=== PATIENT | female | born 1990 | race Caucasian/White ===

== ENCOUNTER 2018-07-26 15:54 | Emergency (ER) | payer OTHER, SELFPAY ==
[2018-07-26] MEDS ORDERED: FENTANYL CITR 100 MCG/2 ML ONE (16:52)
--- NOTE | 2018-07-26 16:57 | RAD REPORT ---
EXAM DESCRIPTION: RAD - Elbow Right 3 View - 07/26/2018 4:50 pm CLINICAL HISTORY: Elbow pain following trauma COMPARISON: None. FINDINGS: No fracture is identified and no elevated posterior fat pad. No dislocation or periosteal reaction. No foreign body identified. There is soft tissue swelling from contusion or edema posterior to the elbow joint and proximal forearm. No other significant finding. IMPRESSION: Posterior contusion or edema change. No acute bone or joint finding.
--- NOTE | 2018-07-26 17:04 | ER ---
Nurse's Notes [facility] Name: Meenakshi Ojeda Age: 27 yrs Sex: Female : 1990 Arrival Date: 07/26/2018 Time: 15:58 Bed 11 Private MD: None, None Diagnosis: Contusion of right elbow;Pain in right elbow Presentation: 07/26 16:05 Presenting complaint: Right elbow pain and swelling after arm got caught between washer hb and dryer while moving today. Transition of care: patient was not received from another setting of care. Onset of symptoms was July 26, 2018. Risk Assessment: Do you want to hurt yourself or someone else? Patient reports no desire to harm self or others. 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 16:05 Method Of Arrival: Ambulatory hb 16:05 Acuity: LUIS 4 hb 16:15 Initial Sepsis Screen: Does the patient meet any 2 criteria? No. Patient's initial iw sepsis screen is negative. Does the patient have a suspected source of infection? No. Patient's initial sepsis screen is negative. Triage Assessment: 16:05 General: Appears in no apparent distress. uncomfortable, Behavior is cooperative, hb anxious. Pain: Pain currently is 7 out of 10 on a pain scale. Neuro: Level of Consciousness is awake, alert, obeys commands, Oriented to person, place, time, situation. Cardiovascular: Capillary refill < 3 seconds Patient's skin is warm and dry. Respiratory: Airway is patent Respiratory effort is even, unlabored, Respiratory pattern is regular, symmetrical. Musculoskeletal: Swelling present in right elbow. 16:05 Injury Description:. 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 - Social history:: Smoking status: Patient uses tobacco products, smokes one-half pack cigarettes per day. - Ebola Screening: : No symptoms or risks identified at this time. Screenin:50 Abuse screen: Denies threats or abuse. Denies injuries from another. Nutritional hb screening: No deficits noted. Tuberculosis screening: No symptoms or risk factors identified. Fall Risk None identified. Assessment: 16:30 General: see triage assessment. hb 17:10 Reassessment: Patient appears in no apparent distress at this time. Patient and/or iw family updated on plan of care and expected duration. Pain level reassessed. Patient is alert, oriented x 3, equal unlabored respirations, skin warm/dry/pink. Vital Signs: 16:05 BP 100 / 88; Pulse 106; Resp 18; Temp 97.8; Pulse Ox 100% on R/A; Pain 7/10; hb ED Course: 15:58 Patient arrived in ED. mr 15:58 None, None is Private Physician. mr 16:05 Triage completed. hb 16:06 Arm band placed on left wrist. hb 16:14 Janae Cha FNP-C is PHCP. snw 16:14 Hermes Danielson MD is Attending Physician. snw 16:43 Lucinda Jara, CHRISS is Primary Nurse. iw 16:51 Patient has correct armband on for positive identification. Call light in reach. hb 17:05 Elbow Right 3 View XRAY In Process Unspecified. EDMS 17:20 No provider procedures requiring assistance completed. Patient did not have IV access iw during this emergency room visit. Administered Medications: 16:51 Drug: fentaNYL (PF) 50 mcg Route: IM; Site: left deltoid; hb Outcome: 17:03 Discharge ordered by . snw 17:22 Discharged to home ambulatory. iw 17:22 Condition: good 17:22 Discharge instructions given to patient, Instructed on discharge instructions, follow up and referral plans. Demonstrated understanding of instructions, follow-up care, medications, Prescriptions given X 1. 17:23 Patient left the ED. aj1 Signatures: Dispatcher [employer] EDBridgette Taylor RN RN aj1 Janae Cha FNP-C [employer] SCHOOL HUMANITIES TEACHER-Toshaw Pattie Almeida mr Lucinda Jara RN RN iw Xin Prieto RN RN
--- NOTE | 2018-07-26 17:04 | EDPHYS ---
Physician Documentation [facility] Name: Meenakshi Ojeda Age: 27 yrs Sex: Female : 1990 Arrival Date: 07/26/2018 Time: 15:58 Bed 11 Private MD: None, None ED Physician Hermes Danielson HPI: 07/26 16:47 This 27 yrs old Female presents to ER via Ambulatory with complaints of Elbow snw Injury. 16:47 The patient or guardian complains of a crush injury, from a heavy object, decreased snw range of motion, injury, pain, that is acute. The complaints affect the right elbow. Context: The problem was sustained at home, resulted from a crush injury, by an appliance, a direct blow, by an appliance. Onset: The symptoms/episode began/occurred suddenly, this morning. Treatment prior to arrival includes: no previous treatment. Severity of symptoms: At their worst the symptoms were moderate, severe. The patient has not experienced similar symptoms in the past. 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 - Social history:: Smoking status: Patient uses tobacco products, smokes one-half pack cigarettes per day. - Ebola Screening: : No symptoms or risks identified at this time. ROS: 16:46 Constitutional: Negative for fever, chills, and weight loss, Eyes: Negative for injury, snw pain, redness, and discharge, ENT: Negative for injury, pain, and discharge, Neck: Negative for injury, pain, and swelling, Cardiovascular: Negative for chest pain, palpitations, and edema, Respiratory: Negative for shortness of breath, cough, wheezing, and pleuritic chest pain, Abdomen/GI: Negative for abdominal pain, nausea, vomiting, diarrhea, and constipation, Back: Negative for injury and pain, : Negative for injury, bleeding, discharge, and swelling, Skin: Negative for injury, rash, and discoloration, Neuro: Negative for headache, weakness, numbness, tingling, and seizure. 16:46 MS/extremity: Positive for injury or acute deformity, contusion, decreased range of motion, ecchymosis, pain, swelling, tenderness, of the right elbow. Exam: 16:44 Constitutional: This is a well developed, well nourished patient who is awake, alert, snw and in no acute distress. Head/Face: Normocephalic, atraumatic. Eyes: Pupils equal round and reactive to light, extra-ocular motions intact. Lids and lashes normal. Conjunctiva and sclera are non-icteric and not injected. Cornea within normal limits. Periorbital areas with no swelling, redness, or edema. ENT: Nares patent. No nasal discharge, no septal abnormalities noted. Tympanic membranes are normal and external auditory canals are clear. Oropharynx with no redness, swelling, or masses, exudates, or evidence of obstruction, uvula midline. Mucous membranes moist. Neck: Trachea midline, no thyromegaly or masses palpated, and no cervical lymphadenopathy. Supple, full range of motion without nuchal rigidity, or vertebral point tenderness. No Meningismus. Chest/axilla: Normal chest wall appearance and motion. Nontender with no deformity. No lesions are appreciated. Cardiovascular: Regular rate and rhythm with a normal S1 and S2. No gallops, murmurs, or rubs. Normal PMI, no JVD. No pulse deficits. Respiratory: Lungs have equal breath sounds bilaterally, clear to auscultation and percussion. No rales, rhonchi or wheezes noted. No increased work of breathing, no retractions or nasal flaring. Abdomen/GI: Soft, non-tender, with normal bowel sounds. No distension or tympany. No guarding or rebound. No evidence of tenderness throughout. Back: No spinal tenderness. No costovertebral tenderness. Full range of motion. Skin: Warm, dry with normal turgor. Normal color with no rashes, no lesions, and no evidence of cellulitis. Neuro: Awake and alert, GCS 15, oriented to person, place, time, and situation. Cranial nerves II-XII grossly intact. Motor strength 5/5 in all extremities. Sensory grossly intact. Cerebellar exam normal. Normal gait. Psych: Awake, alert, with orientation to person, place and time. Behavior, mood, and affect are within normal limits. 16:44 Musculoskeletal/extremity: Extremities: grossly normal except: noted in the right elbow: ROM: limited active range of motion due to pain, limited passive range of motion due to pain, in the right elbow, Circulation is intact in all extremities. + pain Compartment Syndrome exam of affected extremity: is normal. Vital Signs: 16:05 BP 100 / 88; Pulse 106; Resp 18; Temp 97.8; Pulse Ox 100% on R/A; Pain 7/10; hb MDM: 16:16 Patient medically screened. snw 17:04 Data reviewed: vital signs, nurses notes. Data interpreted: Pulse oximetry: on room air snw is 100 %. Interpretation: normal. Counseling: I had a detailed discussion with the patient and/or guardian regarding: the historical points, exam findings, and any diagnostic results supporting the discharge/admit diagnosis, radiology results, the need for outpatient follow up, to return to the emergency department if symptoms worsen or persist or if there are any questions or concerns that arise at home. Special discussion: I have referred the patient to see his PCP for further evaluation of high blood pressure. Based on the history and exam findings, there is no indication for further emergent testing or inpatient evaluation. I discussed with the patient/guardian the need to see the orthopedic surgeon for further evaluation of the symptoms. I discussed with the patient/guardian the need to see the primary care provider for further evaluation of the symptoms. 12 16:16 Order name: Elbow Right 3 View XRAY; Complete Time: 08:34 snw 07/26 16:37 Order name: Sling; Complete Time: 16:42 snw Administered Medications: 16:51 Drug: fentaNYL (PF) 50 mcg Route: IM; Site: left deltoid; hb Disposition: 18:14 Co-signature as Attending Physician, Hermes Danielson MD I agree with the assessment and kdr plan of care. Disposition: 07/26/18 17:03 Discharged to Home. Impression: Contusion of right elbow, Pain in right elbow. - Condition is Stable. - Discharge Instructions: Joint Pain, Musculoskeletal Pain, Elbow Contusion, Cryotherapy, Heat Therapy, How to Use a Sling. - Prescriptions for Diclofenac Sodium 75 mg Oral Tablet Sustained Release - take 1 tablet by ORAL route 2 times per day; 30 tablet. - Work release form, Medication Reconciliation Form, Thank You Letter, Antibiotic Education, Prescription Opioid Use form. - Follow up: Emergency Department; When: As needed; Reason: Worsening of condition. Follow up: Private Physician; When: 5 - 6 days; Reason: Recheck today's complaints, Continuance of care, Re-evaluation by your physician. Signatures: Dispatcher [employer] Bridgette Rust RN RN aj1 Hermes Danielson MD MD [facility] Janae Cha, COMMERCIAL LOAN CLOSER-C COMMERCIAL LOAN CLOSER-Csnw Xin Prieto RN RN Corrections: (The following items were deleted from the chart) 17:23 17:03 07/26/2018 17:03 Discharged to Home. Impression: Contusion of right elbow; Pain aj1 in right elbow. Condition is Stable. Forms are Medication Reconciliation Form, Thank You Letter, Antibiotic Education, Prescription Opioid Use. Follow up: Emergency Department; When: As needed; Reason: Worsening of condition. Follow up: Private Physician; When: 5 - 6 days; Reason: Recheck today's complaints, Continuance of care, Re-evaluation by your physician. snw
[2018-07-26 17:48] VITALS: BP 100/88; TEMP 97.8; O2SAT 100
== END 2018-07-26 17:23 | disposition home or self-care (01) ==
LOC: ER 15:54
DX: S50.01XA Contusion of right elbow, initial encounter (principal); W23.0XXA Caught, crushed, jammed, or pinched between moving objects, initial encounter; F17.210 Nicotine dependence, cigarettes, uncomplicated
CPT/HCPCS: 96372; 99283; J3010

== ENCOUNTER 2019-09-01 03:02 | Emergency (ER) | payer SELFPAY ==
--- OUTSIDE RECORDS SUMMARY | 2019-09-01 03:04 | XMS REPORT ---
:1990 [facility] Address [address] [place] [address] Dr. Kumar [address] [place] [address] Care Team Providers Name Role Phone Unavailable Unavailable Unavailable Problems This patient has no known problems. Allergies, Adverse Reactions, Alerts This patient has no known allergies or adverse reactions. Medications This patient has no known medications.
--- NOTE | 2019-09-01 03:43 | ER ---
Nurse's Notes [facility] Name: Meenakshi Ojeda Age: 28 yrs Sex: Female : 1990 Arrival Date: 09/01/2019 Time: 03:02 Bed 19 Private MD: Diagnosis: Cellulitis of right axilla Presentation: 09/01 03:11 Presenting complaint: Patient states: woke up from pain on a lump on her right axilla, Pt states it wasn't there when she slept. Transition of care: patient was not received from another setting of care. Onset of symptoms was September 01, 2019. Risk Assessment: Do you want to hurt yourself or someone else? Patient reports no desire to harm self or others. Initial Sepsis Screen: Does the patient meet any 2 criteria? No. Patient's initial sepsis screen is negative. Does the patient have a suspected source of infection? Yes: Skin breakdown/wound. Care prior to arrival: None. 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 - Social history:: Smoking status: Patient uses tobacco products, denies chronic smoking, but will smoke occasionally, Patient/guardian denies using alcohol, street drugs, The patient lives with family, with spouse. - Ebola Screening: : Patient negative for fever greater than or equal to 101.5 degrees Fahrenheit, and additional compatible Ebola Virus Disease symptoms Patient denies exposure to infectious person. - Family history:: not pertinent. Screenin:14 Abuse screen: Denies threats or abuse. Denies injuries from another. Nutritional screening: No deficits noted. Tuberculosis screening: No symptoms or risk factors identified. Fall Risk None identified. Assessment: 03:13 General: Appears in no apparent distress. Behavior is calm, cooperative, appropriate wh for age. Pain: Complains of pain in Right axilla Pain does not radiate. Pain currently is 8 out of 10 on a pain scale. Quality of pain is described as aching, Pain began 4 hours ago. Neuro: Level of Consciousness is awake, alert, obeys commands, Oriented to person, place, time, situation, Appropriate for age. Cardiovascular: Capillary refill < 3 seconds. Respiratory: Airway is patent Respiratory effort is even, unlabored, Respiratory pattern is regular, symmetrical. GI: Abdomen is flat, non-distended. : No signs and/or symptoms were reported regarding the genitourinary system. EENT: No signs and/or symptoms were reported regarding the EENT system. Derm: lump on right axilla. Musculoskeletal: Circulation, motion, and sensation intact. Vital Signs: 03:12 BP 116 / 70; Pulse 76; Resp 18; Temp 98.5; Pulse Ox 97% ; Weight 67.13 kg; Height 5 ft. wh 4 in. (162.56 cm); Pain 8/10; 03:12 Body Mass Index 25.40 (67.13 kg, 162.56 cm) ED Course: 03:02 Patient arrived in ED. ds1 03:09 Capri Paulino MD is Attending Physician. ma2 03:10 Akanksha Lisa is Primary Nurse. 03:12 Triage completed. 03:15 Arm band placed on right wrist. 03:15 Patient has correct armband on for positive identification. Bed in low position. Call bb3 light in reach. Side rails up X 1. Pulse ox on. NIBP on. 04:04 No provider procedures requiring assistance completed. Patient did not have IV access bb3 during this emergency room visit. Administered Medications: 03:50 Drug: TORadol 60 mg Route: IM; Site: right gluteus; bb3 04:19 Follow up: Response: No adverse reaction bb3 03:50 Drug: Clindamycin 300 mg Route: PO; bb3 04:18 Follow up: Response: No adverse reaction bb3 03:50 Drug: Bactrim (160 mg-800 mg (DS) 1 tablet Route: PO; bb3 04:18 Follow up: Response: No adverse reaction bb3 Outcome: 03:42 Discharge ordered by . ma2 04:04 Discharged to home ambulatory, with friend. bb3 04:04 Condition: stable 04:04 Discharge instructions given to patient, Instructed on discharge instructions, follow up and referral plans. no drinking with medication, no driving heavy equipment, medication usage. 04:20 Patient left the ED. bb3 Signatures: Kaelyn Casey ds1 Akanksha Lisa Mohammad, MD MD ma2 Nela Alexis bb3
--- NOTE | 2019-09-01 03:44 | EDPHYS ---
Physician Documentation [facility] Name: Meenakshi Ojeda Age: 28 yrs Sex: Female : 1990 Arrival Date: 09/01/2019 Time: 03:02 Bed 19 Private MD: ED Physician Capri Paulino HPI: 09/01 03:40 This 28 yrs old Female presents to ER via Ambulatory with complaints of Bump ma2 on Shoulder. 03:40 The patient or guardian complains of pain. The complaints affect the right axilla. ma2 Onset: The symptoms/episode began/occurred suddenly, 2 hour(s) ago. Severity of symptoms: At their worst the symptoms were mild, in the emergency department the symptoms are unchanged. The patient has not experienced similar symptoms in the past. right axillary redness and pain that started 2 hrs ago. 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 - Social history:: Smoking status: Patient uses tobacco products, denies chronic smoking, but will smoke occasionally, Patient/guardian denies using alcohol, street drugs, The patient lives with family, with spouse. - Ebola Screening: : Patient negative for fever greater than or equal to 101.5 degrees Fahrenheit, and additional compatible Ebola Virus Disease symptoms Patient denies exposure to infectious person. - Family history:: not pertinent. ROS: 03:40 Constitutional: Negative for fever, chills, and weight loss. ma2 03:40 All other systems are negative. Exam: 03:40 Constitutional: This is a well developed, well nourished patient who is awake, alert, ma2 and in no acute distress. Chest/axilla: Normal chest wall appearance and motion. Nontender with no deformity. No lesions are appreciated. Cardiovascular: Regular rate and rhythm with a normal S1 and S2. No gallops, murmurs, or rubs. Normal PMI, no JVD. No pulse deficits. Respiratory: Lungs have equal breath sounds bilaterally, clear to auscultation and percussion. No rales, rhonchi or wheezes noted. No increased work of breathing, no retractions or nasal flaring. Abdomen/GI: Soft, non-tender, with normal bowel sounds. No distension or tympany. No guarding or rebound. No evidence of tenderness throughout. MS/ Extremity: right axilla with 2 cm cellulitis redness induration and ttp, no fluctuence, otherwise Pulses equal, no cyanosis. Neurovascular intact. Full, normal range of motion. Neuro: Awake and alert, GCS 15, oriented to person, place, time, and situation. Cranial nerves II-XII grossly intact. Motor strength 5/5 in all extremities. Sensory grossly intact. Cerebellar exam normal. Normal gait. Vital Signs: 03:12 BP 116 / 70; Pulse 76; Resp 18; Temp 98.5; Pulse Ox 97% ; Weight 67.13 kg; Height 5 ft. wh 4 in. (162.56 cm); Pain 8/10; 03:12 Body Mass Index 25.40 (67.13 kg, 162.56 cm) wh MDM: 03:09 Patient medically screened. [facility] 03:40 Differential diagnosis: contusion, abrasion, tendonitis, cellulitis. Data reviewed: ri2 vital signs, nurses notes. Counseling: I had a detailed discussion with the patient and/or guardian regarding: the historical points, exam findings, and any diagnostic results supporting the discharge/admit diagnosis, the presence of at least one elevated blood pressure reading (>120/80) during this emergency department visit, the need for outpatient follow up. Response to treatment: the patient's symptoms have markedly improved after treatment. Administered Medications: 03:50 Drug: TORadol 60 mg Route: IM; Site: right gluteus; bb3 04:19 Follow up: Response: No adverse reaction bb3 03:50 Drug: Clindamycin 300 mg Route: PO; bb3 04:18 Follow up: Response: No adverse reaction bb3 03:50 Drug: Bactrim (160 mg-800 mg (DS) 1 tablet Route: PO; bb3 04:18 Follow up: Response: No adverse reaction bb3 Disposition: 09/01/19 03:42 Discharged to Home. Impression: Cellulitis of right axilla. - Condition is Stable. - Discharge Instructions: Cellulitis, Adult. - Prescriptions for Clindamycin HCl 300 mg Oral Capsule - take 1 capsule by ORAL route every 6 hours for 10 days; 40 capsule. Tylenol- Codeine #3 300-30 mg Oral Tablet - take 2 tablet by ORAL route every 6 hours As needed; 30 tablet. Bactrim DS 800- 160 mg Oral Tablet - take 1 tablet by ORAL route every 12 hours for 7 days; 14 tablet. - Medication Reconciliation Form, Thank You Letter, Antibiotic Education, Prescription Opioid Use form. - Follow up: Private Physician; When: Tomorrow; Reason: Continuance of care. Signatures: Akanksha Lisa Mohammad, MD MD ma2 Nela Alexis bb3 Corrections: (The following items were deleted from the chart) 04:20 03:42 09/01/2019 03:42 Discharged to Home. Impression: Cellulitis of right axilla. bb3 Condition is Stable. Forms are Medication Reconciliation Form, Thank You Letter, Antibiotic Education, Prescription Opioid Use. Follow up: Private Physician; When: Tomorrow; Reason: Continuance of care. [email or web address]
[2019-09-01] MEDS ORDERED: KETOROLAC 30 MG/ML INJ ONE (03:46)
[2019-09-01] MEDS ORDERED: SMZ./TMP. 800/160 MG TABLET ONE (03:46)
[2019-09-01 04:37] VITALS: BP 116/70; TEMP 98.5; O2SAT 97
== END 2019-09-01 04:20 | disposition home or self-care (01) ==
LOC: ER 03:02
DX: L03.111 Cellulitis of right axilla (principal); Z88.0 Allergy status to penicillin; J45.909 Unspecified asthma, uncomplicated; F41.9 Anxiety disorder, unspecified
CPT/HCPCS: 96372; 99283

== ENCOUNTER 2020-12-10 23:16 | Emergency (ER) | payer MEDICAID, SELFPAY ==
--- OUTSIDE RECORDS SUMMARY | 2020-12-10 23:18 | XMS REPORT | Continuity of Care Document ---
:1990 Author Organization [facility] t Address [address] [place] [address] Dr. Webb. [address] [place] [address] Care Team Providers Name Role Phone Doctor Unassigned, Name Attending Clinician Unavailable Problems This patient has no known problems. Allergies, Adverse Reactions, Alerts This patient has no known allergies or adverse reactions. Medications This patient has no known medications. Procedures This patient has no known procedures. 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 [id number] 2020-01-01 2020-01-01 Refill Doctor [facility] [id number] 00:00:00 00:00:00 Unassigned, Y [facility] [id number] [facility] [id number] 2020-01-01 2020-01-01 Patient Doctor [facility] [id number] 00:00:00 00:00:00 Secure Msg Unassigned, ASH [id number] [place] [facility] [id number] Results This patient has no known results.
[2020-12-10] MEDS ORDERED: TETANUS & DIPHTHERIA TOX,ADULT 0.5 ML VIAL ONE (23:52)
[2020-12-10] MEDS ORDERED: CEFAZOLIN/SWI 1gm 1 GM/10 ML SYR ONE (23:52)
[2020-12-11 00:03] LABS: Absolute Lymphocytes (CBC) 3.4 K/uL (0.7-4.9); Basophils % 0.5 % (0-1.3); Hematocrit 36.9 % (36.0-45.0); Lymphocytes % 32.1 % (15.3-44.8); MPV 8.3 fL (7.6-11.3); RBC Red Blood Cell Count 4.12 M/uL (3.86-4.86)
[2020-12-11 00:11] LABS: BUN Blood Urea Nitrogen 15 mg/dL (7-18); Bicarbonate 29 mmol/L (21-32); Glucose Level 89 mg/dL (74-106); Potassium 3.8 mmol/L (3.5-5.1); Sodium Level 139 mmol/L (136-145)
[2020-12-11] MEDS ORDERED: LIDOCAINE 1% W/EPI 1:100,000 MDV 20 ML VIAL ONE (00:51)
--- NOTE | 2020-12-11 02:05 | ER ---
Nurse's Notes [facility] Name: Meenakshi Ojeda Age: 30 yrs Sex: Female : 1990 Arrival Date: 12/10/2020 Time: 23:18 Bed 3 Private MD: Diagnosis: Laceration, Right Flank Presentation: 12/10 23:18 Chief complaint: EMS states: she sustained laceration with uncontrolled bleeding at the mg2 lower back after sitting on a broken wine glass \T\ 2230. Coronavirus screen: Client denies travel out of the [place] in the last 14 days. At this time, the client does not indicate any symptoms associated with coronavirus-19. Ebola Screen: No symptoms or risks identified at this time. Initial Sepsis Screen: Does the patient meet any 2 criteria? No. Patient's initial sepsis screen is negative. Does the patient have a suspected source of infection? No. Patient's initial sepsis screen is negative. Risk Assessment: Do you want to hurt yourself or someone else? Patient reports no desire to harm self or others. Onset of symptoms was December 10, 2020 at 22:30. 23:18 Method Of Arrival: EMS: [place] [id number] 23:18 Acuity: LUIS 2 mg2 Triage Assessment: 23:22 General: Appears in no apparent distress. comfortable, Behavior is calm, cooperative. mg2 Pain: Complains of pain in back. EENT: No signs and/or symptoms were reported regarding the EENT system. Neuro: Level of Consciousness is awake, alert, obeys commands, Oriented to person, place, time, situation. Cardiovascular: Capillary refill < 3 seconds Patient's skin is warm and dry. Respiratory: Airway is patent Respiratory effort is even, unlabored, Respiratory pattern is regular, symmetrical. GI: No signs and/or symptoms were reported involving the gastrointestinal system. : No signs and/or symptoms were reported regarding the genitourinary system. Derm: Wound noted back Wound is approx. an inch long. Musculoskeletal: Circulation, motion, and sensation intact. Capillary refill < 3 seconds. Historical: - Allergies: 23:22 doxylamine-dextromethorphan; mg2 23:22 PENICILLINS; mg2 23:22 pseudoephedrine HCl; mg2 - Home Meds: 23:22 inhalers [Active]; Keppra Oral [Active]; mg2 - PMHx: 23:22 Anxiety; Asthma; Seizures; mg2 - Immunization history:: Flu vaccine status is unknown. - Social history:: Smoking status: unknown. Screenin:23 Abuse screen: Denies threats or abuse. Denies injuries from another. Nutritional mg2 screening: No deficits noted. Tuberculosis screening: No symptoms or risk factors identified. Fall Risk IV access (20 points). Assessment: 23:23 General: see triage note. mg2 12/11 00:30 Reassessment: Patient appears in no apparent distress at this time. Patient and/or jb4 family updated on plan of care and expected duration. Pain level reassessed. Patient is alert, oriented x 3, equal unlabored respirations, skin warm/dry/pink. Pt wound continues to bleed. Is noted to have bleed through pressure bandage. Provider notified, no new orders at this time. 00:43 Reassessment: Assisted KANDY Guajardo in suturing laceration. jb4 00:45 Reassessment: patient sent to ct via stretcher. mg2 01:15 Reassessment: Patient appears in no apparent distress at this time. Patient and/or jb4 family updated on plan of care and expected duration. Pain level reassessed. Patient is alert, oriented x 3, equal unlabored respirations, skin warm/dry/pink. 02:18 Reassessment: Patient appears in no apparent distress at this time. Patient and/or jb4 family updated on plan of care and expected duration. Pain level reassessed. Patient is alert, oriented x 3, equal unlabored respirations, skin warm/dry/pink. No further bleeding noted after laceration repair. Hematoma has not grown in size. Patient states feeling better. Vital Signs: 12/10 23:18 BP 130 / 87; Pulse 80; Resp 18; Temp 98.4; Pulse Ox 100% on R/A; mg2 12/11 00:30 BP 124 / 60; Pulse 78; Resp 16; Pulse Ox 100% on R/A; jb4 ED Course: 12/10 23:18 Patient arrived in ED. mg2 23:21 Triage completed. mg2 23:22 Arm band placed on. mg2 23:23 Patient has correct armband on for positive identification. mg2 23:23 Maintain EMS IV. Good blood return noted. Site clean \T\ dry. Gauge \T\ site: 18 \T\ RAC. mg2 23:26 Jonathan Hernandez, RN is Primary Nurse. mg2 23:29 Neptali Amezcua MD is Attending Physician. [facility] 12/11 01:02 CT Abd/Pelvis - IV Contrast Only In Process Unspecified. EDMS 02:19 No provider procedures requiring assistance completed. IV discontinued, intact, jb4 bleeding controlled, No redness/swelling at site. Pressure dressing applied. Administered Medications: 12/10 23:39 Drug: Ancef (cefazolin) 1 grams Route: IVPB; Site: right antecubital; mg2 23:45 Follow up: Response: No adverse reaction; IV Status: Completed infusion; IV Intake: [id number] 23:39 Drug: Tetanus-Diphtheria Toxoid Adult 0.5 ml {[employer]: [employer]. Exp: [facility] 10/09/2022. Lot #: [id number]. } Route: IM; Site: left deltoid; 12/11 00:00 Follow up: Response: No adverse reaction jb4 Intake: 12/10 23:45 IV: 10ml; Total: 10ml. jb4 Outcome: 12/11 02:04 Discharge ordered by . [facility] 02:19 Discharged to home ambulatory. jb4 02:19 Condition: stable 02:19 Discharge instructions given to patient, Instructed on discharge instructions, follow up and referral plans. medication usage, Demonstrated understanding of instructions, follow-up care, medications, Prescriptions given X 1. 02:21 Patient left the ED. jb4 Signatures: Dispatcher [employer] EDMA Martín Rossi RN RN jb4 Jonathan Hernandez RN RN [facility] Neptali Amezcua MD MD 7 Corrections: (The following items were deleted from the chart) 02: 02:18 Reassessment: Patient appears in no apparent distress at this time. Patient jb4 and/or family updated on plan of care and expected duration. Pain level reassessed. Patient is alert, oriented x 3, equal unlabored respirations, skin warm/dry/pink. Patient states feeling better. jb4
--- NOTE | 2020-12-11 02:05 | EDPHYS ---
Physician Documentation [facility] Name: Meenakshi Ojeda Age: 30 yrs Sex: Female : 1990 Arrival Date: 12/10/2020 Time: 23:18 Bed 3 Private MD: ED Physician Neptali Amezcua HPI: 12/10 23:57 This 30 yrs old Female presents to ER via EMS with complaints of Laceration mh7 to back. 23:57 Trauma demographics: County: The injury occurred in [place] Location of Injury: The mh7 injury occurred at home, Date: December 10, 2020. Mechanism of injury: Penetrating trauma: inflicted by glass, that penetrated penetrated an unknown depth, the object was removed prior to arrival. Associated injuries: The patient sustained right flank, laceration. Onset: The symptoms/episode began/occurred just prior to arrival, today. 12/11 01:56 States that she accidentally sat on a wine glass. The glass broke and a piece of the mh7 stem got stuck in her right lower back. She pulled the glass out and started to have bleeding from the wound.. Historical: - Allergies: 12/10 23:22 doxylamine-dextromethorphan; mg2 23:22 PENICILLINS; mg2 23:22 pseudoephedrine HCl; mg2 - Home Meds: 23:22 inhalers [Active]; Keppra Oral [Active]; mg2 - PMHx: 23:22 Anxiety; Asthma; Seizures; mg2 - Immunization history:: Flu vaccine status is unknown. - Social history:: Smoking status: unknown. ROS: 23:57 Constitutional: Negative for fever, chills, and weight loss, Eyes: Negative for injury, mh7 pain, redness, and discharge, ENT: Negative for injury, pain, and discharge, Neck: Negative for injury, pain, and swelling, Cardiovascular: Negative for chest pain, palpitations, and edema, Respiratory: Negative for shortness of breath, cough, wheezing, and pleuritic chest pain, Abdomen/GI: Negative for abdominal pain, nausea, vomiting, diarrhea, and constipation, : Negative for injury, bleeding, discharge, and swelling, MS/Extremity: Negative for injury and deformity, Neuro: Negative for headache, weakness, numbness, tingling, and seizure, Psych: Negative for depression, anxiety, suicide ideation, homicidal ideation, and hallucinations, Allergy/Immunology: Negative for hives, rash, and allergies, Endocrine: Negative for neck swelling, polydipsia, polyuria, polyphagia, and marked weight changes, Hematologic/Lymphatic: Negative for swollen nodes, abnormal bleeding, and unusual bruising. Exam: 12/11 01:55 Constitutional: This is a well developed, well nourished patient who is awake, alert, mh7 and in no acute distress. Head/Face: Normocephalic, atraumatic. Eyes: Pupils equal round and reactive to light, extra-ocular motions intact. Lids and lashes normal. Conjunctiva and sclera are non-icteric and not injected. Cornea within normal limits. Periorbital areas with no swelling, redness, or edema. Neck: Trachea midline, no thyromegaly or masses palpated, and no cervical lymphadenopathy. Supple, full range of motion without nuchal rigidity, or vertebral point tenderness. No Meningismus. Chest/axilla: Normal chest wall appearance and motion. Nontender with no deformity. No lesions are appreciated. Cardiovascular: Regular rate and rhythm with a normal S1 and S2. No gallops, murmurs, or rubs. Normal PMI, no JVD. No pulse deficits. Respiratory: Lungs have equal breath sounds bilaterally, clear to auscultation and percussion. No rales, rhonchi or wheezes noted. No increased work of breathing, no retractions or nasal flaring. Abdomen/GI: Soft, non-tender, with normal bowel sounds. No distension or tympany. No guarding or rebound. No evidence of tenderness throughout. MS/ Extremity: Pulses equal, no cyanosis. Neurovascular intact. Full, normal range of motion. Neuro: Awake and alert, GCS 15, oriented to person, place, time, and situation. Cranial nerves II-XII grossly intact. Motor strength 5/5 in all extremities. Sensory grossly intact. Cerebellar exam normal. Normal gait. Psych: Awake, alert, with orientation to person, place and time. Behavior, mood, and affect are within normal limits. 01:56 Back: pain, that is mild, ROM is normal, normal spinal alignment noted, CVA tenderness, mh7 is absent, muscle spasm, is not present, small laceration to right flank with mild bleeding. 01:56 Skin: injury, laceration(s), the wound is approximately 1.5 cm(s), with a depth of 0.5 cm(s), of the right flank, that can be described as clean, no foreign body, linear, with mild bleeding. Vital Signs: 12/10 23:18 BP 130 / 87; Pulse 80; Resp 18; Temp 98.4; Pulse Ox 100% on R/A; mg2 12/11 00:30 BP 124 / 60; Pulse 78; Resp 16; Pulse Ox 100% on R/A; jb4 Laceration: 01:56 Wound Repair of 1.5cm ( 0.6in ) subcutaneous laceration to back, right flank. Distal mh7 neuro/vascular/tendon intact. Anesthesia: Local anesthetic administered with 3 mls of 1% lidocaine w/ Epi. Wound prep: Extensive cleansing with betadine by nurse, Wound irrigation with saline by nurse, Wound explored extensively, Copious irrigation. Skin closed with 1 3-0 Ethilon using figure of eight. Dressed with non-adherent dressing. Patient tolerated well. MDM: 02:04 Patient medically screened. 7 02:07 Differential diagnosis: intra-abdominal injury, L spine fracture, laceration. Data [facility] reviewed: vital signs, nurses notes, EMS record, lab test result(s), CBC, electrolytes, radiologic studies, CT scan. Data interpreted: Pulse oximetry: on room air is 100 %. Interpretation: normal. Counseling: I had a detailed discussion with the patient and/or guardian regarding: the historical points, exam findings, and any diagnostic results supporting the discharge/admit diagnosis, lab results, radiology results, the need for outpatient follow up, to return to the emergency department if symptoms worsen or persist or if there are any questions or concerns that arise at home. Response to treatment: the patient's symptoms have markedly improved after treatment. 12/10 23:24 Order name: Basic Metabolic Panel mg2 12/10 23:24 Order name: CBC with Diff mg2 12/10 22: Order name: Type And Screen; Complete Time: 01:36 mg2 12/10 23:24 Order name: Test, Serum; Complete Time: 00:25 mg2 12/10 23:24 Order name: Basic Metabolic Panel; Complete Time: 00:17 EDMS 12/10 22:24 Order name: CBC with Automated Diff; Complete Time: 00:17 EDMS 12/10 23:24 Order name: Labs collected and sent; Complete Time: 23:24 [facility] 12/10 23:29 Order name: Protime (+inr) [facility] 12/10 23:29 Order name: Ptt, Activated mg2 12/10 23:30 Order name: Protime (+INR); Complete Time: 00:17 EDNM 12/10 23:30 Order name: PTT, Activated Partial Thromb; Complete Time: 00:17 EDNM 12/10 23:31 Order name: CT Abd/Pelvis - IV Contrast Only [facility] Administered Medications: 12/10 23:39 Drug: Ancef (cefazolin) 1 grams Route: IVPB; Site: right antecubital; mg2 23:45 Follow up: Response: No adverse reaction; IV Status: Completed infusion; IV Intake: [id number] 23:39 Drug: Tetanus-Diphtheria Toxoid Adult 0.5 ml {[employer]: [employer]. Exp: [facility] 10/09/2022. Lot #: [id number]. } Route: IM; Site: left deltoid; 12/11 00:00 Follow up: Response: No adverse reaction jb4 Disposition: 12/11/20 02:04 Discharged to Home. Impression: Laceration, Right Flank. - Condition is Stable. - Discharge Instructions: Laceration Care, Adult, [id number]. - Prescriptions for Keflex 500 mg Oral Capsule - take 1 capsule by ORAL route every 6 hours for 7 days; 28 capsule. - Medication Reconciliation Form, Thank You Letter, Antibiotic Education, Prescription Opioid Use form. - Follow up: Private Physician; When: 48 Hours; Reason: Wound Recheck, Worsening of condition, Recheck today's complaints, Continuance of care, Re-evaluation by your physician. Follow up: Emergency Department; When: 48 Hours; Reason: Wound Recheck. - Problem is new. - Symptoms have improved. Signatures: Dispatcher [employer] EDMS Martín Rossi RN RN jb4 Jonathan Hernandez RN RN [facility] Neptali Amezcua MD MD mh7 Corrections: (The following items were deleted from the chart) 02:21 02:04 12/11/2020 02:04 Discharged to Home. Impression: Laceration, Right Flank. jb4 Condition is Stable. Forms are Medication Reconciliation Form, Thank You Letter, Antibiotic Education, Prescription Opioid Use. Follow up: Private Physician; When: 48 Hours; Reason: Wound Recheck, Worsening of condition, Recheck today's complaints, Continuance of care, Re-evaluation by your physician. Follow up: Emergency Department; When: 48 Hours; Reason: Wound Recheck. Problem is new. Symptoms have improved. mh7
[2020-12-11 02:27] VITALS: TEMP 98.4; O2SAT 100
[2020-12-11 02:29] VITALS: BP 124/60
--- NOTE | 2020-12-11 18:37 | RAD REPORT ---
EXAM DESCRIPTION: CT Abdomen and Pelvis With Intravenous Contrast CLINICAL HISTORY: The patient is 30 years old and is Female; TRAUMA TECHNIQUE: Axial computed tomography images of the abdomen and pelvis with intravenous contrast. S agittal and coronal reformatted images were created and reviewed. This CT exam was performed using one or more of the following dose reduction techniques: automated exposure control, adjustment of t he mA and/or kV according to patient size, and/or use of iterative reconstruction technique. COMPARISON: No relevant prior studies available. FINDINGS: LUNG BASES: Unremarkable. No mass. No consolidation. ABDOMEN: LIVER: Unremarkable. No mass. GALLBLADDER AND BILE DUCTS: No calcified stones. No ductal dilation. PANCREAS: No ductal dilation. No mass. SPLEEN: Multiple splenic granuloma are present. ADRENALS: Unremarkable. No mass. KIDNEYS AND URETERS: Unremarkable. The kidneys enhance symmetrically. No obstructing renal or ure teral calculus is seen. No hydronephrosis or hydroureter. No perinephric fluid or stranding. STOMACH AND BOWEL: The stomach is minimally fluid filled. The small bowel is relatively normal in caliber. A large amount of stool is present throughout colon. There is no mucosal thickening or evid ence of bowel obstruction. PELVIS: APPENDIX: The appendix is normal in caliber without surrounding inflammation. BLADDER: The bladder is well distended. REPRODUCTIVE: Unremarkable as visualized. ABDOMEN and PELVIS: INTRAPERITONEAL SPACE: Unremarkable. No free air. No significant fluid collection. BONES/JOINTS: There is no acute fracture visualized axial and appendicular skeleton. SOFT TISSUES: The soft tissues are normal. VASCULATURE: Multiple calcified phleboliths are present within the pelvis. No abdominal aortic aneurysm. LYMPH NODES: Unremarkable. No enlarged lymph nodes. IMPRESSION: No evidence of solid organ injury or traumatic bony findings on this contrasted CT of th e abdomen and pelvis. Electronically signed by: Wendy Medina MD 12/11/2020 1:18 AM CDT Due to temporary technical issues with the PACS/Fluency reporting system, reports are being signed by the in house radiologists without review as a courtesy to insure prompt reporting. The interpreting radiologist is fully responsible for the content of the report.
== END 2020-12-11 02:21 | disposition home or self-care (01) ==
LOC: ER 23:16
PROC: 0JQ80ZZ Repair Abdomen Subcutaneous Tissue and Fascia, Open Approach (ICD-10-PCS; principal; 2020-12-11)
DX: S31.119A Laceration without foreign body of abdominal wall, unspecified quadrant without penetration into peritoneal cavity, initial encounter (principal); W25.XXXA Contact with sharp glass, initial encounter; Y93.89 Activity, other specified; Y92.008 Other place in unspecified non-institutional (private) residence as the place of occurrence of the external cause; Z88.0 Allergy status to penicillin; Z88.1 Allergy status to other antibiotic agents; Z88.8 Allergy status to other drugs, medicaments and biological substances; G40.909 Epilepsy, unspecified, not intractable, without status epilepticus
CPT/HCPCS: 85025; 80048; 36415; 86900; 86850; 84703; 85610; 86901; 85730; 74177; 90471; 90714; 96374; 99284; 12001; Q9967; J0690

== ENCOUNTER 2021-05-30 09:44 | Emergency (ER) | payer OTHER ==
[2021-05-30 10:40] LABS: Urine Blood 1+ (Negative); Urine Glucose Negative (Negative); Urine Protein 1+ (Negative); Urine Specific Gravity 1.025 (1.005-1.030)
[2021-05-30 11:03] LABS: Absolute Lymphocytes (CBC) 2.8 K/uL (0.7-4.9); Basophils % 0.8 % (0-1.3); Hematocrit 48.2 % (36.0-45.0); Lymphocytes % 27.9 % (15.3-44.8); MPV 8.3 fL (7.6-11.3); RBC Red Blood Cell Count 5.54 M/uL (3.86-4.86)
[2021-05-30] MEDS ORDERED: MORPHINE 4 MG/ML SYR ONE (11:09)
[2021-05-30] MEDS ORDERED: ONDANSETRON 4 MG/2 ML VIAL ONE (11:09)
[2021-05-30 11:23] LABS: Albumin 3.9 g/dL (3.4-5.0); Bilirubin Direct 0.1 mg/dL (0-0.2); Bilirubin Total 0.4 mg/dL (0.2-1.0); Potassium 3.8 mmol/L (3.5-5.1); Protein, Total 7.3 g/dL (6.4-8.2)
[2021-05-30 12:05] LABS: Urine Bacteria <20 /HPF (<20); Urine Mucus 1+ /HPF (NONE SEEN); Urine Urothelial Cells <5 /HPF (NONE SEEN)
--- NOTE | 2021-05-30 12:32 | RAD REPORT ---
EXAM DESCRIPTION: CT - Abdomen Pelvis W Contrast - 05/30/2021 11:48 am CLINICAL HISTORY: Dysuria;Abd pain COMPARISON: Abdomen Pelvis W Contrast dated 12/11/2020 TECHNIQUE: Biphasic, helical CT imaging of the abdomen and pelvis was performed following 100 ml non -ionic IV contrast. No oral contrast administered. All CT scans are performed using dose optimization technique as appropriate and may include automated exposure control or mA/KV adjustment according to patient size. FINDINGS: No suspicious findings in the lung bases. The liver, spleen, and pancreas show no suspicious findings. Gallbladder and biliary tree are also wi thout suspicious finding. Renal function is symmetric. The enhancement pattern is slightly heterogeneous but not suspected to b e pyelonephritis. No abnormal dilatation, edema or enhancement of the ureter gee. No solid mass les ion of either kidney. No adrenal abnormalities. Gee of the urinary bladder appear slightly shaggy, thickened and edematous. Bladder is only partial ly filled. Cystitis is suspected. Margins of the uterus are not well defined on this examination. Acute uterine finding is not suspecte d. Acute ovarian process also not suspected. No dilated bowel loops or bowel wall thickening. No suspicion for appendicitis. The appendix is not w ell defined along its entire course. No free air, free fluid or inflammatory stranding. No hernia, m ass or bulky lymphadenopathy. No suspicious bony findings. IMPRESSION: Cystitis findings are evident. No mass or stone in the urinary bladder. Renal parenchymal enhancement is somewhat heterogeneous but no focal diminished attenuation typical f or pyelonephritis. No hydronephrosis or obstructing calculus.
[2021-05-30 12:34] LABS: Urine Specific Gravity/Preg 1.025 (1.005-1.030)
--- NOTE | 2021-05-30 12:55 | ER ---
Nurse's Notes [facility] Name: Meenakshi Ojeda Age: 30 yrs Sex: Female : 1990 Arrival Date: 05/30/2021 Time: 09:48 Bed 28 Private MD: Diagnosis: Unspecified acute conjunctivitis, left eye;Acute cystitis;Rash and other nonspecific skin eruption Presentation: 05/30 09:52 Chief complaint: Patient states: left eye redness that began today. Pt also reports aa5 rash to sheri arms and c/o possible UTI. Coronavirus screen: runny nose. Ebola Screen: Patient negative for fever greater than or equal to 101.5 degrees Fahrenheit, and additional compatible Ebola Virus Disease symptoms. Initial Sepsis Screen: Does the patient meet any 2 criteria? HR > 90 bpm. Does the patient have a suspected source of infection? No. Patient's initial sepsis screen is negative. Risk Assessment: Do you want to hurt yourself or someone else? Patient reports no desire to harm self or others. Onset of symptoms was May 2021. 09:52 Method Of Arrival: Ambulatory aa5 09:52 Acuity: LUIS 3 aa5 Triage Assessment: 09:58 General: Appears slender, Behavior is calm, cooperative, appropriate for age. es2 VIDEO INTERN: 10:08 3, Full Term 2, Premature 0, 1, Living 2 es2 Historical: - Allergies: 09:53 doxylamine-dextromethorphan; aa5 09:53 PENICILLINS; aa5 09:53 pseudoephedrine HCl; aa5 - PMHx: 09:53 Anxiety; Asthma; Seizures; aa5 - Immunization history:: Client reports receiving the 1st dose of the Covid vaccine. - Social history:: Smoking status: Patient reports the use of cigarette tobacco products, denies chronic smoking, but will smoke occasionally. Screenin:58 Abuse screen: Denies threats or abuse. Denies injuries from another. Nutritional es2 screening: No deficits noted. Tuberculosis screening: No symptoms or risk factors identified. Fall Risk Gait- Normal/Bed Rest/Wheelchair (0 pts) Mental Status- Oriented to own ability (0 pts). Assessment: 10:05 Reassessment: Patient is alert, oriented x 3, equal unlabored respirations, skin es2 warm/dry/pink. Pt states painful urination and difficulty voiding. also reports pain to her eye and rash on sheri arms and back that appeared during the night. General: Appears uncomfortable, Behavior is calm, cooperative, appropriate for age. Pain: Complains of pain in eye Pain currently is 10 out of 10 on a pain scale. Neuro: Level of Consciousness is awake, alert, obeys commands, Oriented to person, place, time, situation, Appropriate for age Gait is steady, Speech is normal. Cardiovascular: Capillary refill < 3 seconds Patient's skin is warm and dry. Respiratory: Airway is patent Respiratory effort is even, Respiratory pattern is regular. GI: No signs and/or symptoms were reported involving the gastrointestinal system. : Reports pain with urination, difficulty voiding. EENT: No signs and/or symptoms were reported regarding the EENT system. Derm: Reports rash that appeared during the night. Itches. Musculoskeletal: Range of motion: intact in all extremities. 12:22 Reassessment: Patient appears in no apparent distress at this time. Patient and/or ld1 family updated on plan of care and expected duration. Pain level reassessed. Patient is alert, oriented x 3, equal unlabored respirations, skin warm/dry/pink. Vital Signs: 09:54 BP 117 / 91; Pulse 93; Resp 16 S; Temp 98.5(TE); Pulse Ox 98% on R/A; Weight 70.76 kg aa5 (R); Height 5 ft. 4 in. (162.56 cm) (R); 10:09 BP 139 / 78; Pulse 90; Resp 17; Pulse Ox 100% on R/A; es2 10:54 BP 105 / 51; Pulse 79; Resp 16; Pulse Ox 99% on R/A; es2 11:50 BP 133 / 83; Pulse 68; Resp 18; Pulse Ox 100% on R/A; ld1 09:54 Body Mass Index 26.78 (70.76 kg, 162.56 cm) aa5 ED Course: 09:48 Patient arrived in ED. as 09:52 Arm band placed on. aa5 09:53 Triage completed. aa5 09:55 Blanca Guerrero RN is Primary Nurse. es2 09:57 Zack Pepe NP is PHCP. pm1 09:57 Hermes Danielson MD is Attending Physician. pm1 09:58 Patient has correct armband on for positive identification. Call light in reach. es2 10:08 No provider procedures requiring assistance completed. es2 10:41 Urine Microscopic Only Sent. es2 10:49 Basic Metabolic Panel Sent. es2 10:49 CBC with Diff Sent. es2 10:49 Hepatic Function Sent. es2 10:49 Lipase Sent. es2 10:49 Urine Microscopic Only Sent. es2 10:49 Urine --Ancillary Sent. es2 10:50 Initial lab(s) drawn, by me, sent to lab. Inserted saline lock: 20 gauge in left em1 antecubital area, using aseptic technique. Blood collected. 10:53 Urine --Ancillary (enter results) Sent. es2 11:48 CT Abd/Pelvis - IV Contrast Only In Process Unspecified. EDMS 13:40 IV discontinued, intact, bleeding controlled, No redness/swelling at site. ld1 Administered Medications: 10:53 Drug: morphine 4 mg Route: IVP; Site: left antecubital; es2 10:53 Follow up: Response: No adverse reaction es2 10:53 Drug: Zofran (Ondansetron) 4 mg Route: IVP; Site: left antecubital; es2 10:53 Follow up: Response: No adverse reaction es2 Outcome: 12:55 Discharge ordered by . pm1 13:40 Discharged to home ambulatory. ld1 13:40 Condition: stable 13:40 Discharge instructions given to patient, Instructed on discharge instructions, follow up and referral plans. medication usage, Demonstrated understanding of instructions, follow-up care, medications, Prescriptions given X 4. 13:40 Patient left the ED. ld1 Signatures: Dispatcher [employer] EDMS Marion Borges Eric em1 Gwen Hernandez, RN RN aa5 Zack Pepe, RETAIL SUPERVISOR RETAIL SUPERVISOR pm1 Zoe Marie RN RN ld1 Blanca Guerrero RN RN es2
--- NOTE | 2021-05-30 12:56 | EDPHYS ---
Physician Documentation [facility] Name: Meenakshi Ojeda Age: 30 yrs Sex: Female : 1990 Arrival Date: 05/30/2021 Time: 09:48 Bed 28 Private MD: ED Physician Hermes Danielson HPI: 05/30 11:45 This 30 yrs old Female presents to ER via Ambulatory with complaints of Eye pm1 Problem, Pain With Urination, Rash. 11:45 The patient presents with abdominal pain suprapubic area. Onset: The symptoms/episode pm1 began/occurred 3 day(s) ago. The symptoms do not radiate. Associated signs and symptoms:. The symptoms are described as sharp. Modifying factors: the symptoms are aggravated by burning with urination and sensation of fullness of bladder even with urination. Severity of pain: in the emergency department the pain is actually worse. The patient has not experienced similar symptoms in the past. The patient has not recently seen a physician. Patient also reports a rash present to bilateral arms and matting of left eye. 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 - Social history:: Smoking status: Patient reports the use of cigarette tobacco products, denies chronic smoking, but will smoke occasionally. ROS: 11:45 Constitutional: Negative for fever, chills, and weight loss, Cardiovascular: Negative pm1 for chest pain, palpitations, and edema, Respiratory: Negative for shortness of breath, cough, wheezing, and pleuritic chest pain. 11:45 Back: Negative for injury and pain. 11:45 MS/Extremity: Negative for injury and deformity, Skin: Negative for injury, rash, and discoloration, Neuro: Negative for headache, weakness, numbness, tingling, and seizure. 11:45 Abdomen/GI: Positive for abdominal pain, Negative for nausea, vomiting, and diarrhea. 11:45 : Positive for burning with urination, difficulty urinating, of the suprapubic area, pain, Negative for flank pain. Exam: 11:45 Constitutional: This is a well developed, well nourished patient who is awake, alert, pm1 and in no acute distress. Head/Face: Normocephalic, atraumatic. 11:45 Back: No spinal tenderness. No costovertebral tenderness. Full range of motion. Skin: Warm, dry with normal turgor. Normal color with no rashes, no lesions, and no evidence of cellulitis. MS/ Extremity: Pulses equal, no cyanosis. Neurovascular intact. Full, normal range of motion. 11:45 Eyes: Extraocular movements: intact throughout, Conjunctiva: injected, in the left eye, Lids and lashes: appear normal. 11:45 ENT: Exam is negative for acute changes, Mouth: Lips: normal, moist, Oral mucosa: normal, pink and intact, moist. 11:45 Cardiovascular: Exam negative for acute changes, Rate: normal, Rhythm: regular, Pulses: no pulse deficits are appreciated. 11:45 Respiratory: Exam negative for acute changes, respiratory distress, shortness of breath. 11:45 Abdomen/GI: Inspection: abdomen appears normal, Palpation: soft, in all quadrants, moderate abdominal tenderness, in the suprapubic area. 11:45 Neuro: Exam negative for acute changes, Orientation: is normal, Mentation: is normal, Motor: is normal, moves all fours. Vital Signs: 09:54 BP 117 / 91; Pulse 93; Resp 16 S; Temp 98.5(TE); Pulse Ox 98% on R/A; Weight 70.76 kg aa5 (R); Height 5 ft. 4 in. (162.56 cm) (R); 10:09 BP 139 / 78; Pulse 90; Resp 17; Pulse Ox 100% on R/A; es2 10:54 BP 105 / 51; Pulse 79; Resp 16; Pulse Ox 99% on R/A; es2 11:50 BP 133 / 83; Pulse 68; Resp 18; Pulse Ox 100% on R/A; ld1 09:54 Body Mass Index 26.78 (70.76 kg, 162.56 cm) aa5 MDM: 10:26 Patient medically screened. pm1 11:56 Data reviewed: vital signs. Data interpreted: Pulse oximetry: on room air is 99 %. pm1 Interpretation: normal. 12:40 Counseling: I had a detailed discussion with the patient and/or guardian regarding: the pm1 historical points, exam findings, and any diagnostic results supporting the discharge/admit diagnosis, lab results, radiology results, the need for outpatient follow up, to return to the emergency department if symptoms worsen or persist or if there are any questions or concerns that arise at home. 12:42 ED course: Reports swelling with penicillin. Therefore will prescribe patient sulfa pm1 drug for her cystitis. Nonspecific rash to arms does not appear to be infective. 05/30 10:33 Order name: Basic Metabolic Panel; Complete Time: 11:45 pm1 05/30 10:33 Order name: CBC with Diff; Complete Time: 11:45 pm1 05/30 10:33 Order name: Hepatic Function; Complete Time: 11:45 pm1 05/30 10:33 Order name: Lipase; Complete Time: 11:45 pm1 05/30 10:33 Order name: Urine Microscopic Only; Complete Time: 12:39 pm1 05/30 10:40 Order name: Urine Dipstick-Ancillary; Complete Time: 11:45 EDMS 05/30 10:33 Order name: IV Saline Lock; Complete Time: 10:48 pm1 05/30 10:33 Order name: Labs collected and sent; Complete Time: 10:48 pm1 05/30 10:33 Order name: CT Abd/Pelvis - IV Contrast Only; Complete Time: 12:39 pm1 05/30 10:40 Order name: Urine --Ancillary (enter results) bd 05/30 10:41 Order name: Urine --Ancillary; Complete Time: 12:39 EDMS 05/30 12:08 Order name: Urine Culture EDOH 05/30 10:33 Order name: Urine Dipstick-Ancillary (obtain specimen); Complete Time: 10:41 pm1 05/30 10:33 Order name: Urine Test (obtain specimen); Complete Time: 10:41 pm1 Administered Medications: 10:53 Drug: morphine 4 mg Route: IVP; Site: left antecubital; es2 10:53 Follow up: Response: No adverse reaction es2 10:53 Drug: Zofran (Ondansetron) 4 mg Route: IVP; Site: left antecubital; es2 10:53 Follow up: Response: No adverse reaction es2 Disposition: 05/31 08:49 Co-signature as Attending Physician, Hermes Danielson MD I agree with the assessment and kdr plan of care. Disposition Summary: 05/30/21 12:55 Discharge Ordered Location: Home pm1 Problem: new pm1 Symptoms: have improved pm1 Condition: Stable pm1 Diagnosis - Unspecified acute conjunctivitis, left eye pm1 - Acute cystitis pm1 - Rash and other nonspecific skin eruption pm1 Followup: pm1 - With: Emergency Department - When: As needed - Reason: Worsening of condition Followup: pm1 - With: Private Physician - When: 2 - 3 days - Reason: Recheck today's complaints, Continuance of care, Re-evaluation by your physician Discharge Instructions: - Discharge Summary Sheet pm1 - Rash, Adult pm1 - Urinary Tract Infection, Adult pm1 - Bacterial Conjunctivitis, Adult, [id number] pm1 Forms: - Medication Reconciliation Form pm1 - Thank You Letter pm1 - Antibiotic Education pm1 - Prescription Opioid Use pm1 Prescriptions: - Pyridium 200 mg Oral Tablet - take 1 tablet by ORAL route every 8 hours for 3 days; 9 tablet; Refills: 0, pm1 Product Selection Permitted - Diclofenac Sodium 75 mg Oral tablet,delayed release (DR/EC) - take 1 tablet by ORAL route every 12 hours As needed; 30 tablet; Refills: 0, pm1 Product Selection Permitted - Bactrim DS 800-160 mg Oral Tablet - take 1 tablet by ORAL route every 12 hours for 10 days; 20 tablet; Refills: 0, pm1 Product Selection Permitted - Erythromycin 5 mg/gram (0.5 %) Ophthalmic Ointment - apply 1 centimeter by OPHTHALMIC route every 8 hours for 7 days; 1 tube; pm1 Refills: 0, Product Selection Permitted Signatures: Dispatcher [employer] EDMS Hermes Danielson MD MD [facility] Gwen Hernandez RN RN aa5 Zack Pepe NP PROJECT PLANNER pm1 Blanca Guerrero RN RN es2 Corrections: (The following items were deleted from the chart) 05/30 12:50 12:42 ED course: Reports swelling with penicillin. Therefore will prescribe patient pm1 sulfa drug for her cystitis. pm1
[2021-05-30 13:47] VITALS: TEMP 98.5
[2021-05-30 13:50] VITALS: BP 133/83; O2SAT 100
== END 2021-05-30 13:40 | disposition home or self-care (01) ==
LOC: ER 09:44
DX: H10.32 Unspecified acute conjunctivitis, left eye (principal); N30.00 Acute cystitis without hematuria; R21 Rash and other nonspecific skin eruption; F17.210 Nicotine dependence, cigarettes, uncomplicated; Z88.0 Allergy status to penicillin; Z88.8 Allergy status to other drugs, medicaments and biological substances
CPT/HCPCS: 87088; 85025; 87086; 80048; 36415; 81025; 80076; 83690; 74177; 96375; 96374; 99284; Q9967; J2405; 81003; 81015

== ENCOUNTER 2021-08-02 19:22 | Emergency (ER) | payer OTHER, SELFPAY ==
--- OUTSIDE RECORDS SUMMARY | 2021-08-02 19:25 | XMS REPORT | Continuity of Care Document ---
:1990 Author Organization [facility] t Address [address] [place] [address] Care Team Providers Name Role Phone PCP, DOES NOT HAVE A Primary Care Physician Unavailable Veronica MORENO Attending Clinician Unavailable Brandon DEJESUS Attending Clinician Unavailable Kamini HAWK C Attending Clinician Visit, Nurse Attending Clinician Unavailable Lionel BERG, R Attending Clinician Edward Attending Clinician Unavailable Charles VILLARREAL Attending Clinician Unavailable NICOLE Admitting Clinician Unavailable Payers Payer Name Policy Type Policy Number Effective Date Expiration Date [facility] [id number] 2021 MEDICAID 00:00:00 Problems Condition Condition Condition Status Onset Resolution Last Treating Co mments Source Name Details Category Date Date Treatment Clinician Date Gonorrhea Gonorrhea Disease Active Uni vers 7-29 ity of 00:00: [place] 00 Medical Branch Atypical Atypical Disease Active Overview: Un mauricio squamous squamous 6-25 Formattin ity of cells of cells of 00:00: g of this [place] as undetermin undetermin 00 note Me dical ed ed might be Branch significan significan different ce (ASCUS) ce (ASCUS) from the on on original. Papanicola Papanicola Awaiting ou smear ou smear hpv of cervix of cervix results Screening Screening Disease Active Uni vers examinatio examinatio 6-14 it y of n for n for 00:00: [place] venereal venereal 00 Medica l disease disease Branch Amenorrhea Amenorrhea Disease Active U nivers 6-14 ity of 00:00: [place] 00 Medical Branch Umbilical Umbilical Disease Active 2015-08 Uni vers hernia hernia 2-30 ity of with with 00:00: [place] obstructio obstructio 00 Me dical n but no n but no Branch gangrene gangrene History of History of Disease Active 2015-08 U nivers tubal tubal 2-22 ity of ligation ligation 00:00: [place] 00 Medical Branch Anxiety Anxiety Disease Active Overview: Univ ers 8-28 Formattin ity of 00:00: g of this [place] 00 note Medical might be Branch different from the original. No med Allergies, Adverse Reactions, Alerts Allergy Allergy Status Severity Reaction(s) Onset Inactive Treating Comm ents Source Name Type Date Date Clinician Penicill DA Active [facility]30 [place] [facility] Penicill DA Active [facility] ins 7[facility] [place] [facility] Penicill Propensi Active Other - See Decrease d Univers ins ty to comments 1-12 seizure ity of adverse 00:00: threshold [place] reaction 00 Medical s Branch PENICILL Drug Active Other-Cmnt Univ ers INS Class 1-12 ity of 00:00: [place] 00 Medical Branch Coconut Propensi Active Anaphylaxis Un mauricio ty to 8-28 ity of adverse 00:00: [place] reaction 00 Medical s Branch COCONUT Drug Active Anaphylaxis Univ ers Class 8-28 ity of 00:00: [place] 00 Medical [place] Social History Social Habit Start Date Stop Date Quantity Comments Source Alcohol intake 2021-03-17 2021-03-17 0 /d University of 00:00:00 00:00:00 [facility] Tobacco Comment 2021-01-31 2021-01-31 Vapes every day Univ ersity of 00:00:00 00:00:00 [facility] History of 2014-10-19 Cigarette Smoker Universi ty of tobacco use 00:00:00 [facility] Tobacco use and 2014-08-31 2014-08-31 Current user Univers ity of exposure 00:00:00 00:00:00 [facility] Sex Ass[birth year] At [birth year] Universit y of 00:00:00 00:00:00 [facility] Smoking Status Start Date Stop Date Source Former smoker 2014-08-31 00:00:00 2014-08-31 00:00:00 Universi ty of [facility] Medications Ordered Filled Start Stop Current Ordering Indication Dosage Frequency Signature Comments Components Source Medication Medication Date Date Medication? Clinician (SIG) Name Name diphenhydrA 2020-08 Yes [id number] 25mg Take 1 Univers MINE 0-07 capsule by ity of (BENADRYL) 00:00: mouth [place] 25 mg 00 every 6 Medical capsule (six) Branch hours as needed for Itching or Allergies. diphenhydrA 2020-08 Yes [id number] 25mg Take 1 Univers MINE 0-07 capsule by ity of (BENADRYL) 00:00: mouth [place] 25 mg 00 every 6 Medical capsule (six) Branch hours as needed for Itching or Allergies. diphenhydrA 2020-08 Yes [id number] 25mg Take 1 Univers MINE 0-07 capsule by ity of (BENADRYL) 00:00: mouth [place] 25 mg 00 every 6 Medical capsule (six) Branch hours as needed for Itching or Allergies. diphenhydrA 2020-08 Yes [id number] 25mg Take 1 Univers MINE 0-07 capsule by ity of (BENADRYL) 00:00: mouth [place] 25 mg 00 every 6 Medical capsule (six) Branch hours as needed for Itching or Allergies. diphenhydrA 2020-08 Yes [id number] 25mg Take 1 Univers MINE 0-07 capsule by ity of (BENADRYL) 00:00: mouth [place] 25 mg 00 every 6 Medical capsule (six) Branch hours as needed for Itching or Allergies. diphenhydrA 2020-08 Yes [id number] 25mg Take 1 Univers MINE 0-07 capsule by ity of (BENADRYL) 00:00: mouth [place] 25 mg 00 every 6 Medical capsule (six) Branch hours as needed for Itching or Allergies. diphenhydrA 2020-08 Yes [id number] 25mg Take 1 Univers MINE 0-07 capsule by ity of (BENADRYL) 00:00: mouth [place] 25 mg 00 every 6 Medical capsule (six) Branch hours as needed for Itching or Allergies. azithromyci 2020-08- Yes [id number] 1000mg Take 2 Univers n 500 mg 0-07 10-08 tablets by ity of tablet 00:00: 04:59 [place] 00 :00 now for 1 Medical dose. Branch cefTRIAXone 2020-08- No [id number] 500mg 500 mg by Univers 500 mg 0-07 10-07 Intramuscu ity of [place] 00:00[place] 00:[address] [place] :[place] every 24 Medical (twenty-fo Branch ur) hours. levETIRAcet 2015-08 Yes 500mg Take 1 Uni vers am (KEPPRA) 2-30 tablet by ity of 500 mg 17:33: mouth 2 [place] tablet 58 (two) Medical times Branch daily. levETIRAcet 2015-08 Yes 500mg Take 1 Uni vers am (KEPPRA) 2-30 tablet by ity of 500 mg 17:33: mouth 2 [place] tablet 58 (two) Medical times Branch daily. levETIRAcet 2015-08 Yes 500mg Take 1 Uni vers am (KEPPRA) 2-30 tablet by ity of 500 mg 17:33: mouth 2 [place] tablet 58 (two) Medical times Branch daily. levETIRAcet 2015-08 Yes 500mg Take 1 Uni vers am (KEPPRA) 2-30 tablet by ity of 500 mg 17:33: mouth 2 [place] tablet 58 (two) Medical times Branch daily. levETIRAcet 2015-08 Yes 500mg Take 1 Uni vers am (KEPPRA) 2-30 tablet by ity of 500 mg 17:33: mouth 2 [place] tablet 58 (two) Medical times Branch daily. levETIRAcet 2015-08 Yes 500mg Take 1 Uni vers am (KEPPRA) 2-30 tablet by ity of 500 mg 17:33: mouth 2 [place] tablet 58 (two) Medical times Branch daily. levETIRAcet 2015-08 Yes 500mg Take 1 Uni vers am (KEPPRA) 2-30 tablet by ity of 500 mg 17:33: mouth 2 [place] tablet 58 (two) Medical times Branch daily. levETIRAcet Yes 500mg Take 1 Uni vers am (KEPPRA) 2-30 tablet by ity of 500 mg 17:33: mouth 2 [place] tablet 58 (two) Medical times [place] daily. Immunizations Ordered Filled Immunization Date Status Comments [facility] e Immunization Name Name HPV 2016-08-10 Completed University of 00:00:00 [facility] HPV 2016-08-10 Completed University of 00:00:00 [facility] HPV 2016-08-10 Completed University of 00:00:00 [facility] HPV 2016-08-10 Completed University of 00:00:00 [facility] HPV 2016-08-10 Completed University of 00:00:00 [facility] HPV 2016-08-10 Completed University of 00:00:00 [facility] HPV 2016-08-10 Completed University of 00:00:00 [facility] HPV 2016-08-10 Completed University of 00:00:00 [facility] Influenza Virus 2016-06-15 Completed Universit y of Vaccine Quad IM 3+ 00:00:00 [facility] TDAP 2016-06-15 Completed University of 00:00:00 [facility] Influenza Virus 2016-06-15 Completed Universit y of Vaccine Quad IM 3+ 00:00:00 [facility] TDAP 2016-06-15 Completed University of 00:00:00 [facility] Influenza Virus 2016-06-15 Completed Universit y of Vaccine Quad IM 3+ 00:00:00 [facility] TDAP 2016-06-15 Completed University of 00:00:00 [facility] Influenza Virus 2016-06-15 Completed Universit y of Vaccine Quad IM 3+ 00:00:00 [facility] TDAP 2016-06-15 Completed University of 00:00:00 [facility] Influenza Virus 2016-06-15 Completed Universit y of Vaccine Quad IM 3+ 00:00:00 [facility] TDAP 2016-06-15 Completed University of 00:00:00 [facility] Influenza Virus 2016-06-15 Completed Universit y of Vaccine Quad IM 3+ 00:00:00 [facility] TDAP 2016-06-15 Completed University of 00:00:00 [facility] Influenza Virus 2016-06-15 Completed Universit y of Vaccine Quad IM 3+ 00:00:00 [facility] TDAP 2016-06-15 Completed University of 00:00:00 [facility] Influenza Virus 2016-06-15 Completed Universit y of Vaccine Quad IM 3+ 00:00:00 [facility] TDAP 2016-06-15 Completed University of 00:00:00 [facility] Influenza Virus 2016-01-11 Completed Universit y of Vaccine Quad IM 3+ 00:00:00 [facility] Influenza Virus 2016-01-11 Completed Universit y of Vaccine Quad IM 3+ 00:00:00 [facility] Influenza Virus 2016-01-11 Completed Universit y of Vaccine Quad IM 3+ 00:00:00 [facility] Influenza Virus 2016-01-11 Completed Universit y of Vaccine Quad IM 3+ 00:00:00 [facility] Influenza Virus 2016-01-11 Completed Universit y of Vaccine Quad IM 3+ 00:00:00 [facility] Influenza Virus 2016-01-11 Completed Universit y of Vaccine Quad IM 3+ 00:00:00 [facility] Influenza Virus 2016-01-11 Completed Universit y of Vaccine Quad IM 3+ 00:00:00 [facility] Influenza Virus 2016-01-11 Completed Universit y of Vaccine Quad IM 3+ 00:00:00 [facility] TDAP 2015-02-18 Completed University of 00:00:00 [facility] TDAP 2015-02-18 Completed University of 00:00:00 [facility] TDAP 2015-02-18 Completed University of 00:00:00 [facility] TDAP 2015-02-18 Completed University of 00:00:00 [facility] TDAP 2015-02-18 Completed University of 00:00:00 [facility] TDAP 2015-02-18 Completed University of 00:00:00 [facility] TDAP 2015-02-18 Completed University of 00:00:00 [facility] TDAP 2015-02-18 Completed University of 00:00:00 [facility] Influenza Virus 2014-08-31 Completed Universit y of Vaccine Quad IM 00:00:00 [place] Med ical Multi-dose 6+ MO Branch Influenza Virus 2014-08-31 Completed Universit y of Vaccine Quad IM 00:00:00 [place] Med ical Multi-dose 6+ MO Branch Influenza Virus 2014-08-31 Completed Universit y of Vaccine Quad IM 00:00:00 [place] Med ical Multi-dose 6+ MO Branch Influenza Virus 2014-08-31 Completed Universit y of Vaccine Quad IM 00:00:00 [place] Med ical Multi-dose 6+ MO Branch Influenza Virus 2014-08-31 Completed Universit y of Vaccine Quad IM 00:00:00 [place] Med ical Multi-dose 6+ MO Branch Influenza Virus 2014-08-31 Completed Universit y of Vaccine Quad IM 00:00:00 [place] Med ical Multi-dose 6+ MO Branch Influenza Virus 2014-08-31 Completed Universit y of Vaccine Quad IM 00:00:00 [place] Med ical Multi-dose 6+ MO Branch Influenza Virus 2014-08-31 Completed Universit y of Vaccine Quad IM 00:00:00 [place] Med ical Multi-dose 6+ MO Branch Vital Signs Vital Name Observation Time Observation Value Comments Source Diastolic blood 2021-05-26 19:19:00 81 mm[Hg] [facility] Heart rate 2021-05-26 19:19:00 100 /min [facility] Body temperature 2021-05-26 19:19:00 37.11 Josy [facility] Respiratory rate 2021-05-26 19:19:00 20 /min [facility] Body height 2021-05-26 19:19:00 162.6 cm [facility] Body weight 2021-05-26 19:19:00 69.945 kg [facility] BMI 2021-05-26 19:19:00 26.47 kg/m2 [facility] Systolic blood 2021-05-26 19:19:00 123 mm[Hg] [facility] [place], operated [facility] Procedures This patient has no known procedures. Encounters Start End Encounter Admission Attending Care Care Encounter Source Date/Time Date/Time Type Type Clinicians Facility Department ID 2022-03-16 2022-03-16 [facility] [id number] Univers 08:45:00 08:45:00 TETO [id number] mary lou antoine [facility] 2022-03-16 2022-03-16 Outpatient R LIONEL [facility] [id number] Univers 08:45:00 08:45:00 TETO antoine [facility] 2021-08-25 2021-08-25 Outpatient R [facility] [id number] Univers 13:00:00 13:00:00 [id number]-08-[facility] 2021-08-25 [facility] R [facility] [id number] Univers 13:00:00 [facility] 2021-07-28 2021-07-28 Outpatient R [facility] [id number] Univers 14:20:00 14:20:00 [id number] [facility] 2021-07-28 2021-07-28 Outpatient R ANJELICA, [facility] [id number] Univers 14:20:00 14:20:00 FORTINO [facility] 2021-07-06 2021-07-06 Refill [place], [facility] [id number] Univers 00:00:00 00:00:00 Morena C CLINICAL PHARMACY MANAGER [id number] ity of REGIONAL [id number] [place] as MATERNAL [id number] [facility] & CHILD [address] [place] [address] 2021-07-04 2021-07-04 Refill [place], [facility] [id number] Univers 00:00:00 00:00:00 Morena C CLINICAL PHARMACY MANAGER [id number] ity of REGIONAL [id number] [place] as MATERNAL [id number] [facility] & [address] 2021-07-04 2021-07-04 Refill [place], [facility] [id number] Univers 00:00:00 00:00:00 Morena C CLINICAL PHARMACY MANAGER [id number] ity of REGIONAL [id number] [place] as MATERNAL [id number] [facility] & [address] 2021-07-04 2021-07-04 Refill [place], [facility] [id number] Univers 00:00:00 00:00:00 Morena C CLINICAL PHARMACY MANAGER [id number] ity of REGIONAL [id number] [place] as MATERNAL [id number] [facility] & CHILD [address] [place] [address] 2021-07-04 2021-07-04 Refill [place], [facility] [id number] Univers 00:00:00 00:00:00 Morena C CLINICAL PHARMACY MANAGER [id number] ity of REGIONAL [id number] [place] as MATERNAL [id number] [facility] & CHILD [address] [place] [address] 2021-07-04 2021-07-04 Refill [place], [facility] [id number] Univers 00:00:00 00:00:00 Morena C CLINICAL PHARMACY MANAGER [id number] ity of REGIONAL [id number] [place] as MATERNAL [id number] [facility] & CHILD [address] [place] [address] 2021-05-26 2021-05-26 Nurse Visit, [facility] Nurse [facility] [id number] Univers 13:49:58 14:39:32 Visit Teto Moreno CLINICAL PHARMACY MANAGER [id number] ity of REGIONAL [id number] [place] as MATERNAL [id number] [address] 2021-05-26 2021-05-26 [facility] [id number] Univers 13:30:00 13:30:00 TETO barreto o arash [facility] 2021-05-26 2021-05-26 Outpatient R [facility] [id number] Univers 09:30:00 09:30:00 [id number] ity of [facility] 2021-05-26 2021-05-26 [facility] [id number] Univers 09:30:00 09:30:00 TETO barreto o arash [facility] 2021-05-26 2021-05-26 [facility] [id number] Univers 00:00:00 00:00:00 Morena C CLINICAL PHARMACY MANAGER [id number] ity of REGIONAL [id number] [place] as MATERNAL [id number] Med ical & CHILD 107 [facility] 2021-05-23 2021-05-23 Outpatient R [facility] [id number] Univers 13:00:00 13:00:00 [id number] [facility] 2021-05-23 2021-05-23 Outpatient R [facility] [id number] Univers 13:00:00 13:00:00 [facility] 2021-05-10 2021-05-10 Outpatient [facility] [id number] Univers 13:15:00 13:15:00 [id number] [facility] 2021-05-10 2021-05-10 [facility] [id number] Univers 13:15:00 13:15:00 TETO barreto o [facility] 2021-03-18 2021-03-18 Emergency EM Edward, HCAM[facility] LOPEZ [id number] [facility] 18:12:00 20:50:00 John [id number] [facility] 2021-03-17 2021-03-17 [facility] [id number] 07:52:09 08:49:51 Visit Teto Martin CLINICAL PHARMACY MANAGER [id number] [facility] [id number] MATERNAL [id number] & CHILD [address] [place] [address] 2021-03-17 2021-03-17 Outpatient Veronica MORENO [facility] [id number] Univers 07:45:00 07:45:00 TETO [id number] itlauren o [facility] 2021-03-17 2021-03-17 Outpatient R LIONEL [facility] [id number] Univers 07:45:00 07:45:00 TETO reyesy o [facility] 2021-03-16 2021-03-16 Outpatient R KAMINI [facility] [id number] Univers 13:15:00 13:15:00 MORENA [id number] ity o [facility] 2021-03-07 2021-03-07 Outpatient AKINJASMIN, [facility] [id number] Univers 14:30:00 14:30:00 MORENA [id number] ity o [facility] 2021-02-08 2021-02-08 Outpatient [facility] [id number] Univers 10:30:00 10:30:00 [id number] [facility] 2021-02-08 2021-02-08 Outpatient R AKINSIPE, [facility] [id number] Univers 10:30:00 10:30:00 MORENA barreto o [facility] 2021-01-31 2021-01-31 Outpatient R LIONEL, [facility] [id number] Univers 10:45:00 10:45:00 ROSHUNDA [facility] Results Test Description Test Time Test Comments Results Result Comments Source HCG SERUM QUAL 2021-03-18 19:15:00 Test Item Value Reference Range Interpretation Comme nts HCG SERUM QUAL (test code = HCGQL) NEGATIVE NEGATIVE BASIC METABOLIC [id number] 19:12:00 Test Item Value Reference Range Interpretation Comments SODIUM (test code = NA) 142 mmol/l 134.0-147.0 N POTASSIUM (test code = K) 3.4 mmol/L 3.6-5.2 L CHLORIDE (test code = CL) 103 mmol/l 98.0-107.0 N CARBON DIOXIDE (test code = CO2) 32.6 mmol/l 21.0-33.0 N ANION GAP (test code = GAP) 9.8 0-20 N GLUCOSE (test code = GLU) 129 mg/dl 70.0-110.0 H BLOOD UREA NITROGEN (test code = 8 mg/dl 7.0-18.0 N BUN) CREATININE (test code = CREAT) 0.75 mg/dL 0.60-1.30 N GFR NON BLACK (test code = 97 mL/min 110-120 L GFRNONBLACK) GFR BLACK (test code = GFRBLACK) 118 mL/min 133-145 L CALCIUM (test code = CA) 8.1 mg/dl 8.0-10.5 N CBC W/AUTO [id number] 19:05:00 Test Item Value Reference Range Interpretation Comments WHITE BLOOD CELL (test code = 12.6 K/mm3 4.5-11.0 H WBC) RED BLOOD CELL (test code = 5.04 M/mm3 3.80-5.20 N RBC) HEMOGLOBIN (test code = HGB) 14.9 gm/dL 12.0-16.0 N HEMATOCRIT (test code = HCT) 47.1 % 36.0-48.0 N MEAN CELL VOLUME (test code = 93.5 UM3 82.0-99.0 N MCV) MEAN CELL HGB (test code = MCH) 29.6 UUG 25.5-32.5 N MEAN CELL HGB CONCETRATION 31.6 gm/dL 29.0-35.5 N (test code = MCHC) RED CELL DISTRIBUTION WIDTH 14.4 % 11.5-15.0 N (test code = RDW) RED CELL DISTRIBUTION WIDTH SD 49.4 fL 34.8-50.2 N (test code = RDW-SD) PLATELET COUNT (test code = 374 K/mm3 150-400 N PLT) MEAN PLATELET VOLUME (test code 9.7 fl 7.4-10.4 N = MPV) NEUTROPHIL % (test code = NT%) 55.3 % 49.0-76.0 N IMMATURE GRANULOCYTE % (test 0.4 % 0.0-0.4 N code = IG%) LYMPHOCYTE % (test code = LY%) 27.9 % 23.0-38.0 N MONOCYTE % (test code = MO%) 8.6 % 1.0-10.0 N EOSINOPHIL % (test code = EO%) 7.2 % 1.0-5.0 H BASOPHIL % (test code = BA%) 0.6 % 0.0-1.0 N NUCLEATED RBC % (test code = 0.0 % 0.0-0.1 N NRBC%) NEUTROPHIL # (test code = NT#) 7.0 K/mm3 2.4-6.3 H IMMATURE GRANULOCYTE # (test 0.05 x10 3/uL 0.00-0.07 N code = IG#) LYMPHOCYTE # (test code = LY#) 3.5 K/mm3 1.2-4.0 N MONOCYTE # (test code = MO#) 1.1 K/mm3 0.0-0.6 H EOSINOPHIL # (test code = EO#) 0.9 K/MM3 0.0-0.7 H BASOPHIL # (test code = BA#) 0.1 K/mm3 0.0-0.2 N NUCLEATED RBC # (test code = 0.00 X10 3uL 0.00-0.01 N NRBC#) - CT HEAD/BRAIN W/O [id number] 19:04:00 [facility] 1990 Sex: F FAX: John Leon MD Only: St: REG Name: FATOU HESS [facility] : 1990 Age/S: 30/F [address] [facility] Unit: [id number] Loc: E.ERS[address] [place] [address] [place]: [place] [id number] Acct: [id number] Dis Date: Status: REG ER PHONE #: [phone] Exam Date: 03/18/2021 1844 FAX #: [phone] Reason: Seizure EXAMS: CPT CODE: [id number] CT HEAD/BRAIN W/O CONT [id number] Location: H3 CT head, 03/18/21 COMPARISON EXAMS:None of the brain TECHNIQUE: CT examination of the brain was performed without contrast on a helical scanner. Scanning conducted from skull base to vertex in the axial plane acquiring contiguous 5mm slice thickness . The examination was performed estella uptake at helical CT scanner utilizing low-dose radiation technique. Automatic exposure cont rol timing was utilized to minimize radiation dose. CLINICAL HISTORY: Seizure activity FINDINGS: No positive mass-effect, midline shift, extra-axial fluid collections or intracranial hemorrhages seen. In particular, no subarachnoid hemorrhage is identified. No intra or extra-axial masses. Bone windows unremarkable. No significant sinus disease is noted. No acute territorial infarction is seen. No focal area of gliosis isidentified. IMPRESSION: Unremarkable CT examination of the brain without contrast at 1904 Reported and signed by: Cally Brady M.D. CC: John Leon MD Technologist: Aileen Parsons Trnscrd Dt/Tm: 03/18/2021 (1903) [id number] Orig Print D/T: S: 03/18/2021 (7 PAGE 1 Signed Report
--- NOTE | 2021-08-02 21:04 | ER ---
Nurse's Notes [facility] Name: Meenakshi Ojeda Age: 30 yrs Sex: Female : 1990 Arrival Date: 08/02/2021 Time: 19:27 Bed 1 Private MD: Diagnosis: Acute upper respiratory infection, unspecified Presentation: 08/02 19:42 Chief complaint: Patient states: Reports congestion x 2-3 months, with green mucus lp1 production; No relief with Cetirizine from PCP, denies fever; States pain and decreased hearing to right ear. Coronavirus screen: At this time, the client does not indicate any symptoms associated with coronavirus-19. Ebola Screen: No symptoms or risks identified at this time. Initial Sepsis Screen: Does the patient meet any 2 criteria? No. Patient's initial sepsis screen is negative. Does the patient have a suspected source of infection? No. Patient's initial sepsis screen is negative. Risk Assessment: Do you want to hurt yourself or someone else? Patient reports no desire to harm self or others. Onset of symptoms was August 02, 2021. 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 - Social history:: Smoking status: Patient reports the use of cigarette tobacco products, smokes one-half pack cigarettes per day. Screenin:44 Abuse screen: Denies threats or abuse. Denies injuries from another. Nutritional lp1 screening: No deficits noted. Tuberculosis screening: No symptoms or risk factors identified. Fall Risk None identified. Assessment: 20:21 General: Appears in no apparent distress. Behavior is calm, cooperative. Pain: lp1 Complains of pain in right ear. Neuro: Level of Consciousness is awake, alert, obeys commands. Cardiovascular: Patient's skin is warm and dry. Respiratory: Reports cough that is Respiratory effort is even, unlabored, Breath sounds are clear bilaterally. GI: No signs and/or symptoms were reported involving the gastrointestinal system. : No signs and/or symptoms were reported regarding the genitourinary system. EENT: Reports nasal congestion. Derm: Skin is pink, warm \T\ dry. Musculoskeletal: No deficits noted. Vital Signs: 19:42 BP 121 / 81; Pulse 94; Resp 16; Temp 98.4(O); Pulse Ox 98% on R/A; Weight 73.94 kg (R); lp1 Height 5 ft. 4 in. (162.56 cm); Pain 6/10; 19:42 Body Mass Index 27.98 (73.94 kg, 162.56 cm) lp1 ED Course: 19:27 Patient arrived in ED. es 19:[address], RN is Primary Nurse. lp1 19:44 Triage completed. lp1 19:44 Arm band placed on. lp1 19:44 Patient has correct armband on for positive identification. lp1 20:02 Roderick Flores PA is PHCP. jr8 20:02 Ronny Stafford MD is Attending Physician. jr8 20:22 No provider procedures requiring assistance completed. Patient did not have IV access lp1 during this emergency room visit. Administered Medications: No medications were administered Outcome: 21:03 Discharge ordered by . jr8 21:15 Discharged to home ambulatory. lp1 21:15 Condition: good 21:15 Discharge instructions given to patient, Instructed on discharge instructions, follow up and referral plans. medication usage, Demonstrated understanding of instructions, follow-up care, medications, Prescriptions given X 2. 21:47 Patient left the ED. lp1 Signatures: Alize Pan Laura, RN RN lp1 Roderick Flores PA PA jr8 Corrections: (The following items were deleted from the chart) 21:15 21:15 Discharge instructions given to patient, Instructed on discharge instructions, lp1 follow up and referral plans. Demonstrated understanding of instructions, follow-up care, lp1
--- NOTE | 2021-08-02 21:04 | EDPHYS ---
Physician Documentation [facility] Name: Meenakshi Ojeda Age: 30 yrs Sex: Female : 1990 Arrival Date: 08/02/2021 Time: 19:27 Bed 1 Private MD: ED Physician Ronny Stafford HPI: 08/02 20:42 This 30 yrs old Female presents to ER via Ambulatory with complaints of Congestion. jr8 20:42 This is a 30-year-old female with a history of asthma presented to the emergency room jr8 with congestion for the past month. Patient stated that her right ear is also hurting. Denies fevers. Stated that she has had mild cough and that her kids have similar symptoms and that they have been passing it back and forth.. 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 - Social history:: Smoking status: Patient reports the use of cigarette tobacco products, smokes one-half pack cigarettes per day. ROS: 20:42 Eyes: Negative for injury, pain, redness, and discharge, Neck: Negative for injury, jr8 pain, and swelling, Cardiovascular: Negative for chest pain, palpitations, and edema, Abdomen/GI: Negative for abdominal pain, nausea, vomiting, diarrhea, and constipation, Back: Negative for injury and pain, MS/Extremity: Negative for injury and deformity, Skin: Negative for injury, rash, and discoloration, Neuro: Negative for headache, weakness, numbness, tingling, and seizure. 20:42 ENT: Positive for sinus congestion. 20:42 Respiratory: Positive for cough, Negative for shortness of breath, sputum production, wheezing. Exam: 20:42 Constitutional: This is a well developed, well nourished patient who is awake, alert, jr8 and in no acute distress. ENT: Nares patent. No nasal discharge, no septal abnormalities noted. Tympanic membranes are normal and external auditory canals are clear. Oropharynx with no redness, swelling, or masses, exudates, or evidence of obstruction, uvula midline. Mucous membranes moist. Neck: Trachea midline, no thyromegaly or masses palpated, and no cervical lymphadenopathy. Supple, full range of motion without nuchal rigidity, or vertebral point tenderness. No Meningismus. Cardiovascular: Regular rate and rhythm with a normal S1 and S2. No gallops, murmurs, or rubs. Normal PMI, no JVD. No pulse deficits. Respiratory: Lungs have equal breath sounds bilaterally, clear to auscultation and percussion. No rales, rhonchi or wheezes noted. No increased work of breathing, no retractions or nasal flaring. Abdomen/GI: Soft, non-tender, with normal bowel sounds. No distension or tympany. No guarding or rebound. No evidence of tenderness throughout. Skin: Warm, dry with normal turgor. Normal color with no rashes, no lesions, and no evidence of cellulitis. MS/ Extremity: Pulses equal, no cyanosis. Neurovascular intact. Full, normal range of motion. Neuro: Awake and alert, GCS 15, oriented to person, place, time, and situation. Cranial nerves II-XII grossly intact. Motor strength 5/5 in all extremities. Sensory grossly intact. Vital Signs: 19:42 BP 121 / 81; Pulse 94; Resp 16; Temp 98.4(O); Pulse Ox 98% on R/A; Weight 73.94 kg (R); lp1 Height 5 ft. 4 in. (162.56 cm); Pain 6/10; 19:42 Body Mass Index 27.98 (73.94 kg, 162.56 cm) lp1 MDM: 20:02 Patient medically screened. jr8 21:03 Data reviewed: vital signs, nurses notes, and as a result, I will discharge patient. jr8 Data interpreted: Pulse oximetry: on room air is 98 %. Interpretation: normal. Counseling: I had a detailed discussion with the patient and/or guardian regarding: the historical points, exam findings, and any diagnostic results supporting the discharge/admit diagnosis, the need for outpatient follow up, a family practitioner, to return to the emergency department if symptoms worsen or persist or if there are any questions or concerns that arise at home. Administered Medications: No medications were administered Disposition: 22:46 Co-signature as Attending Physician, Ronny Stafford MD I agree with the assessment and lj plan of care. Disposition Summary: 08/02/21 21:03 Discharge Ordered Location: Home jr8 Problem: new jr8 Symptoms: have improved jr8 Condition: Stable jr8 Diagnosis - Acute upper respiratory infection, unspecified jr8 Followup: jr8 - With: Private Physician - When: 2 - 3 days - Reason: Recheck today's complaints, Continuance of care, Re-evaluation by your physician Discharge Instructions: - Discharge Summary Sheet jr8 - Upper Respiratory Infection, Adult jr8 Forms: - Medication Reconciliation Form jr8 - Thank You Letter jr8 - Antibiotic Education jr8 - Prescription Opioid Use jr8 Prescriptions: - Zithromax Z-Sp 250 mg Oral Tablet - take 1 tablet by ORAL route as directed for 5 days Day 1 - take two (2) tablets jr8 one time. Day 2, 3, 4 , 5 take one (1) tablet once daily.; 6 tablet; Refills: 0, Product Selection Permitted - Medrol (Sp) 4 mg Oral Tablets, Dose Pack - take 1 tablet by ORAL route as directed - follow package instructions; 1 jr8 packet; Refills: 0, Product Selection Permitted Signatures: Ronny Stafford MD MD cha Pena, Laura, RN RN lp1 Roderick Flores PA PA jr8
[2021-08-02 22:38] VITALS: BP 121/81; TEMP 98.4; O2SAT 98
== END 2021-08-02 21:47 | disposition home or self-care (01) ==
LOC: ER 19:22
DX: J06.9 Acute upper respiratory infection, unspecified (principal); J45.909 Unspecified asthma, uncomplicated; Z88.0 Allergy status to penicillin; Z88.8 Allergy status to other drugs, medicaments and biological substances
CPT/HCPCS: 99282

== ENCOUNTER 2021-11-29 18:00 | Emergency (ER) | payer OTHER ==
--- OUTSIDE RECORDS SUMMARY | 2021-11-29 18:03 | XMS REPORT | Continuity of Care Document ---
:1990 [facility] t Address [address] [place] [address] Care Team Providers Name Role Phone Pcp, Does Not Have A Primary Care Physician Veronica MORENO Attending Clinician Unavailable Kamini WHMATTIP, C Attending Clinician IKE VIVEROS Attending Clinician Unavailable Lab Attending Clinician Unavailable Veronica Márquez Attending Clinician Brandon DEJESUS Attending Clinician Unavailable Visit, Nurse Attending Clinician Unavailable Edward Attending Clinician Unavailable Charles VILLARREAL Attending Clinician Unavailable NICOLE Admitting Clinician Unavailable Payers Payer Name Policy Type Policy Number Effective Date Expiration Date [facility] [id number] 2021 MEDICAID 00:00:00 Problems Condition Condition Condition Status Onset Resolution Last Treating Co mments Source Name Details Category Date Date Treatment Clinician Date Gonorrhea Gonorrhea Disease Active Uni vers 7-29 ity of 00:00: [place] [address] Medical Branch Atypical Atypical Disease Active Overview: [...] 8-28 ity of 00:00: [place] 00 Medical Branch Social History Social Habit Start Date Stop Date Quantity Comments Source Alcohol intake 2021-03-17 2021-03-17 0 /d University of 00:00:00 00:00:00 [facility] Tobacco Comment 2021-01-31 2021-01-31 Vapes every day Univ ersity of 00:00:00 00:00:00 [facility] History of 2014-10-19 Cigarette Smoker Universi ty of tobacco use 00:00:00 [facility] Tobacco use and 2014-08-31 2014-08-31 Current user Univers ity of exposure 00:00:00 00:00:00 [facility] Sex Ass[birth year] Universit y of 00:00:00 00:00:00 [facility] Smoking Status Start Date Stop Date Source Former smoker 2014-08-31 00:00:00 2014-08-31 00:00:00 Universi ty of [facility] Medications Ordered Filled Start Stop Current Ordering Indication Dosage Frequency Signature Comments Components Source Medication Medication Date Date Medication? Clinician (SIG) Name Name diphenhydrA 2020-08 Yes [id number] 25mg Take 1 Univers MINE 0-07 capsule by ity of (BENADRYL) 00:00: mouth [place] 25 mg 00 every 6 Medical capsule (six) Branch hours as needed for Itching or Allergies. diphenhydrA 2020-08 Yes [id number] 25mg Take 1 Univers MINE 0-07 capsule by ity of (BENADRYL) 00:00: mouth [place] 25 mg 00 every 6 Medical capsule (six) Branch hours as needed for Itching or Allergies. diphenhydrA 2020-08 Yes [id number] 25mg Take 1 Univers MINE 0-07 capsule by ity of (BENADRYL) 00:00: mouth [place] 25 mg 00 every 6 Medical capsule (six) Branch hours as needed for Itching or Allergies. diphenhydrA 2020-08 Yes [id number] 25mg Take 1 Univers MINE 0-07 capsule by ity of (BENADRYL) 00:00: mouth [place] 25 mg 00 every 6 Medical capsule (six) Branch hours as needed for Itching or Allergies. diphenhydrA 2020-08 Yes [id number] 25mg Take 1 Univers MINE 0-07 capsule by ity of (BENADRYL) 00:00: mouth [place] 25 mg 00 every 6 Medical capsule (six) Branch hours as needed for Itching or Allergies. diphenhydrA 2020-08 Yes [id number] 25mg Take 1 Univers MINE 0-07 capsule by ity of (BENADRYL) 00:00: mouth [place] 25 mg 00 every 6 Medical capsule (six) Branch hours as needed for Itching or Allergies. diphenhydrA 2020-08 Yes [id number] 25mg Take 1 Univers MINE 0-07 capsule by ity of (BENADRYL) 00:00: mouth [place] 25 mg 00 every 6 Medical capsule (six) Branch hours as needed for Itching or Allergies. diphenhydrA 2020-08 Yes [id number] 25mg Take 1 Univers MINE 0-07 capsule by ity of (BENADRYL) 00:00: mouth [place] 25 mg 00 every 6 Medical capsule (six) Branch hours as needed for Itching or Allergies. diphenhydrA 2020-08 Yes [id number] 25mg Take 1 Univers MINE 0-07 capsule by ity of (BENADRYL) 00:00: mouth [place] 25 mg 00 every 6 Medical capsule (six) Branch hours as needed for Itching or Allergies. azithromyci 2020-08- No [id number] 1000mg Take 2 Univers n 500 mg 0-07 -08 tablets by ity of tablet 00:00: 04:59 [place] now for 1 Medical dose. Branch cefTRIAXone 2020-08- No [id number] 500mg 500 mg by Univers 500 mg 0-07 10- Intramuscu ity of injection 00:00: 00:00 lar [...] tablet 58 (two) Medical times Branch daily. Immunizations Ordered Filled Immunization Date Status Comments [facility] e Immunization Name Name HPV 2016-08-10 Completed University of 00:00:00 [facility] HPV 2016-08-10 Completed University of 00:00:00 [facility] HPV 2016-08-10 Completed University of 00:00:00 [facility] HPV 2016-08-10 Completed University of 00:00:00 [facility] HPV 2016-08-10 Completed University of 00:00:00 [facility] HPV 2016-08-10 Completed University of 00:00:00 [facility] HPV 2016-08-10 Completed University of 00:00:00 [facility] HPV 2016-08-10 Completed University of 00:00:00 [facility] HPV 2016-08-10 Completed University of 00:00: [facility] HPV 2016-08-10 Completed University of 00:00:00 [facility] Influenza Virus 2016-06-15 Completed Universit y of Vaccine Quad IM 3+ 00:00:00 [facility] TDAP 2016-06-15 Completed University of 00:00:00 [facility] Influenza Virus 2016-06-15 Completed Universit y of Vaccine Quad IM 3+ 00:00:00 [facility] TDAP 2016-06-15 Completed University of 00:00:00 [facility] Influenza Virus 2016-06-15 Completed Universit y of Vaccine Quad IM 3+ 00:00: [facility] TDAP 2016-06-15 Completed University of 00:00:00 [facility] Influenza Virus 2016-06-15 Completed Universit y of Vaccine Quad IM 3+ 00:00:00 [facility] TDAP 2016-06-15 Completed University of 00:00: [facility] Influenza Virus 2016-06-15 Completed Universit y of Vaccine Quad IM 3+ 00:00:00 [facility] TDAP 2016-06-15 Completed University of 00:00:00 [facility] Influenza Virus 2016-06-15 Completed Universit y of Vaccine Quad IM 3+ 00:00:00 [facility] TDAP 2016-06-15 Completed University of 00:00:00 [facility] Influenza Virus 2016-06-15 Completed Universit y of Vaccine Quad IM 3+ 00:00:00 [facility] TDAP 2016-06-15 Completed University of 00:00:00 [facility] Influenza Virus 2016-06-15 Completed Universit y of Vaccine Quad IM 3+ 00:00:00 [facility] TDAP 2016-06-15 Completed University of 00:00:00 [facility] Influenza Virus 2016-06-15 Completed Universit y of Vaccine Quad IM 3+ 00:00:00 [facility] TDAP 2016-06-15 Completed University of 00:00:00 [facility] Influenza Virus 2016-06-15 Completed Universit y of Vaccine Quad IM 3+ 00:00:00 [facility] TDAP 2016-06-15 Completed University of 00:00:00 [facility] Influenza Virus 2016-01-11 Completed Universit y of Vaccine Quad IM 3+ 00:00:00 [facility] Influenza Virus 2016-01-11 Completed Universit y of Vaccine Quad IM 3+ 00:00:00 [facility] Influenza Virus 2016-01-11 Completed Universit y of Vaccine Quad IM 3+ 00:00:00 [facility] Influenza Virus 2016-01-11 Completed Universit y of Vaccine Quad IM 3+ 00:00:00 [facility] Influenza Virus 2016-01-11 Completed Universit y of Vaccine Quad IM 3+ 00:00:00 [facility] Influenza Virus 2016-01-11 Completed Universit y of Vaccine Quad IM 3+ 00:00:00 [facility] Influenza Virus 2016-01-11 Completed Universit y of Vaccine Quad IM 3+ 00:00:00 [facility] Influenza Virus 2016-01-11 Completed Universit y of Vaccine Quad IM 3+ 00:00:00 [facility] Influenza Virus 2016-01-11 Completed Universit y of Vaccine Quad IM 3+ 00:00:00 [facility] Influenza Virus 2016-01-11 Completed Universit y of Vaccine Quad IM 3+ 00:00:00 [facility] TDAP 2015-02-18 Completed University of 00:00:00 [facility] TDAP 2015-02-18 Completed University of 00:00:00 [facility] TDAP 2015-02-18 Completed University of 00:00:00 [facility] TDAP 2015-02-18 Completed University of 00:00:00 [facility] TDAP 2015-02-18 Completed University of 00:00:00 [facility] TDAP 2015-02-18 Completed University of 00:00:00 [facility] TDAP 2015-02-18 Completed University of 00:00:00 [facility] TDAP 2015-02-18 Completed University of 00:00:00 [facility] TDAP 2015-02-18 Completed University of 00:00:00 [facility] TDAP 2015-02-18 Completed University of 00:00:00 [facility] Influenza Virus 2014-08-31 Completed Universit y of Vaccine Quad IM 00:00:00 [place] [facility] Multi-dose 6+ MO Branch Influenza Virus 2014-08-31 Completed Universit y of Vaccine Quad IM 00:00:00 [place] [facility] ical Multi-dose 6+ MO Branch Influenza [...] Universit y of Vaccine Quad IM 00:00:00 [place] [facility] ical Multi-dose 6+ MO Branch Influenza Virus 2014-08-31 Completed Universit y of Vaccine Quad IM 00:00:00 [facility] ical Multi-dose 6+ MO Branch Influenza Virus 2014-08-31 Completed Universit y of Vaccine Quad IM 00:00:00 [facility] ical Multi-dose 6+ MO Branch Influenza Virus 2014-08-31 Completed Universit y of Vaccine Quad IM 00:00:00 [facility] ical Multi-dose 6+ MO Branch Influenza Virus 2014-08-31 Completed Universit y of Vaccine Quad IM 00:00:00 [facility] ical Multi-dose 6+ MO Branch Vital Signs Vital Name Observation Time Observation Value Comments Source Respiratory rate 2021-05-26 19:19:00 20 /min [facility] Body height 2021-05-26 19:19:00 162.6 cm [facility] Body weight 2021-05-26 19:19:00 69.945 kg [facility] BMI 2021-05-26 19:19:00 26.47 kg/m2 [facility] Systolic blood 2021-05-26 19:19:00 123 mm[Hg] Univer sity of pressure [facility] Diastolic blood 2021-05-26 19:19:00 81 mm[Hg] Unive rsity of pressure [facility] Heart rate 2021-05-26 19:19:00 100 /min [facility] Body temperature 2021-05-26 19:19:00 37.11 [facility]y [facility] Procedures This patient has no known procedures. Encounters Start End Encounter Admission Attending Care Care Encounter Source Date/Time Date/Time Type Type Clinicians Facility Department ID 2022-03-16 2022-03-16 Outpatient Veronica MORENO [facility] [id number] Univers 08:45:00 08:45:00 TETO [id number] mary lou antoine [facility] 2022-03-16 2022-03-16 Outpatient Veronica MORENO [facility] [id number] Univers 08:45:00 08:45:00 TETO antoine [facility] 2021-10-19 2021-10-19 [facility] [id number] Univers 00:00:00 00:00:00 Morena Soto IMAGING ANALYST [id number] ity of [facility] [id number] Keenan as MATERNAL [id number] [facility] & [address] 2021-10-11 2021-10-11 [facility] [id number] Univers 08:15:00 08:15:00 DANA [id number] [facility] 2021-08-25 2021-08-25 Facility 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 Univers 13:00:00 13:53:39 Visit Teto Moreno IMAGING ANALYST [id number] ity of [place] [id number] Keenan as MATERNAL [id number] [address] 2021-08-25 2021-08-25 Outpatient R [facility] [id number] Univers 13:00:00 13:00:00 [id number] ity [facility] 2021-08-25 2021-08-25 [facility] [id number] Univers 13:00:00 13:00:00 TETO itlauren o f [facility] 2021-07-28 2021-07-28 Outpatient R [facility] [id number] -[id number] Univers 14:20:00 14:20:00 [id number] [facility] 2021-07-28 2021-07-28 Outpatient R ANJELICA [facility] [id number] Univers 14:20:00 14:20:00 FORTINO [facility] 2021-07-06 2021-07-06 Refill A[place], [facility] [id number] Univers 00:00:00 00:00:00 Morena Soto IMAGING ANALYST [id number] ity of [facility] [id number] Keenan as MATERNAL [id number] [address] 2021-07-04 2021-07-04 Refill Akinsipe, [facility] [id number] Univers 00:00:00 00:00:00 Morena C IMAGING ANALYST [id number] ity of REGIONAL [id number] Keenan as MATERNAL [id number] [facility] & CHILD [address] [place] [address] 2021-07-04 2021-07-04 Refill Akinsipe, [facility] [id number] Univers 00:00:00 00:00:00 Morena C IMAGING ANALYST [id number] ity of REGIONAL [id number] Keenan as MATERNAL [id number] [facility] & CHILD [address] [place] [address] 2021-07-04 2021-07-04 Refill Akinsipe, [facility] [id number] Univers 00:00:00 00:00:00 Morena C IMAGING ANALYST 350.1.13.10 ity of REGIONAL [id number] Keenan as MATERNAL [id number] [facility] & CHILD [address] [place] [address] 2021-07-04 2021-07-04 Refill Akinsipe, [facility] [id number] Univers 00:00:00 00:00:00 Morena C IMAGING ANALYST 350.1.13.10 ity of REGIONAL [id number] Keenan as MATERNAL [id number] [facility] & CHILD [address] [place] [address] 2021-07-04 2021-07-04 Refill Akinsipe, [facility] [id number] Univers 00:00:00 00:00:00 Morena C IMAGING ANALYST 350.1.13.10 ity of REGIONAL [id number] Keenan as MATERNAL [id number] [facility] & CHILD [address] [place] [address] 2021-05-26 2021-05-26 Nurse Visit, [facility] Nurse [facility] 1.2 .[id number] Univers 13:49:58 14:39:32 Visit Teto Moreno IMAGING ANALYST 350.1.13.10 ity of REGIONAL 4.2.7.2.686 Keenan as MATERNAL [id number] [facility] ical & CHILD [address] [place] [address] 2021-05-26 2021-05-26 [facility] [id number] Univers 13:30:00 13:30:00 TETO barreto o [facility] 2021-05-26 2021-05-26 Outpatient R [facility] [id number] -[id number] Univers 09:30:00 09:30:00 [id number] [facility] 2021-05-26 2021-05-26 [facility] [id number] Univers 09:30:00 09:30:00 TETO warren [facility] 2021-05-26 2021-05-26 [facility]phone [facility] [id number] Univers 00:00:00 00:00:00 Morena Soto IMAGING ANALYST 350.1.13.10 [place] [id number] Keenan as MATERNAL [id number] [facility] & CHILD [address] [place] [address] 2021-05-23 2021-05-23 Outpatient R [facility] [id number] -[id number] Univers 13:00:00 13:00:00 [id number] [facility] 2021-05-23 2021-05-23 Outpatient R [facility] [id number] Univers 13:00:00 13:00:00 [facility] 2021-05-10 2021-05-10 Outpatient [facility] [id number] Univers 13:15:00 13:15:00 [id number] [facility] 2021-05-10 2021-05-10 [facility] [id number] Univers 13:15:00 13:15:00 SHANICEJASON warren [facility] 2021-03-18 2021-03-18 Emergency EM Edward, HCAMN LOPEZ [id number] [facility] 18:12:00 20:50:00 John [id number] [facility] 2021-03-17 2021-03-17 Office [facility] [id number] 07:52:09 08:49:51 Visit Teto Veronica IMAGING ANALYST 350.1.13.10 [facility] [id number] MATERNAL [id number] & CHILD [address] [place] [address] 2021-03-17 2021-03-17 Outpatient Veronica MORENO [facility] [id number] -[id number] Univers 07:45:00 07:45:00 TETO [id number] ity o [facility] 2021-03-17 2021-03-17 [facility] [id number] Univers 07:45:00 07:45:00 TETO reyeslauren o [facility] 2021-03-16 2021-03-16 Outpatient R CYJASMIN, [facility] [id number] Univers 13:15:00 13:15:00 MORENA [id number] amylauren o [facility] 2021-03-07 2021-03-07 Outpatient MARYCATHERINE, [facility] [id number] Univers 14:30:00 14:30:00 MORENA [id number] ity o [facility] 2021-02-08 2021-02-08 Outpatient [facility] [id number] -[id number] Univers 10:30:00 10:30:00 [id number] ity [facility] 2021-02-08 2021-02-08 [facility] [id number] Univers 10:30:00 10:30:00 MORENA reyeslauren o [facility] 2021-01-31 2021-01-31 Outpatient [facility] [id number] Univers 10:45:00 10:45:00 TETO y o [facility] Results Test Description Test Time Test Comments Results Result Comments Source HCG SERUM QUAL 2021-03-18 19:15:00 Test Item Value Reference Range Interpretation Comme nts HCG SERUM QUAL (test code = HCGQL) NEGATIVE NEGATIVE BASIC METABOLIC [id number] 19:12:00 Test Item Value Reference Range Interpretation [...] CA) 8.1 mg/dl 8.0-10.5 N CBC W/AUTO [id number] 19:05:00 Test Item Value Reference Range Interpretation [...] 0.00-0.01 N NRBC#) - CT HEAD/BRAIN W/O [id number] 19:04:00 [facility] : 1990 Sex: F FAX: John Leon MD [place]: [address]: REG Name: FATOU HESS [facility] : 1990 Age/S: 30/F [address] Unit: [id number] Loc: E.ERS2 [place], [place]: [place] [id number] Acct: [id number] Dis Date: Status: REG ER PHONE #: [phone] Exam Date: 03/18/2021 1843 FAX #: [phone] Reason: Seizure EXAMS: CPT CODE: [id number] CT HEAD/BRAIN W/O CONT [id number] Location: H3 CT head, 03/18/21 COMPARISON EXAMS:None [...] Technologist: Aileen Parsons Trnscrd Dt/Tm: 03/18/2021 (1903) [email or web address] Orig Print D/T: S: 03/18/2021 (7 PAGE 1 Signed Report
--- NOTE | 2021-11-29 19:38 | ER ---
Nurse's Notes [facility] Name: Meenakshi Ojeda Age: 31 yrs Sex: Female : 1990 Arrival Date: 11/29/2021 Time: 18:04 Bed Waiting Private MD: Diagnosis: Assessment: 11/29 18:45 Reassessment: called to triage, no answer. Unable to locate patient. ss 19:36 Reassessment: called from [facility], no answer. x2. ss ED Course: 18:04 Patient arrived in ED. ds1 18:09 Nic Murrieta PA is PHCP. kylie 18:10 Ronny Stafford MD is Attending Physician. kylie Administered Medications: No medications were administered Outcome: 19:37 Patient left the ED. ss Signatures: Nic Murrieta PA PA jmm San[place], Demi ds1 Lory Puckett, RN RN
== END 2021-11-29 19:37 | disposition left against medical advice (07) ==
LOC: ER 18:00
DX: Z02.9 Encounter for administrative examinations, unspecified (principal)

== ENCOUNTER 2022-02-26 19:24 | Emergency (ER) | payer OTHER ==
--- NOTE | 2022-02-26 21:23 | ER ---
Nurse's Notes [facility] Name: Meenakshi Ojeda Age: 31 yrs Sex: Female : 1990 Arrival Date: 02/26/2022 Time: 19:28 Bed 25 Private MD: Diagnosis: Insect bite of other specified part of neck;Cellulitis of face-anterior neck Presentation: 02/26 19:35 Chief complaint: Patient states: I was bit by a spider last night. I am coughing up jb4 blood and it is hard to breath. EMS states: Pt reportedly was cleaning out her RV and was bit by a spider under her chin. Had a 100.4 temp, started 20g IV RAC. Coronavirus screen: At this time, the client does not indicate any symptoms associated with coronavirus-19. Ebola Screen: No symptoms or risks identified at this time. Initial Sepsis Screen: Does the patient meet any 2 criteria? HR > 90 bpm. Yes Does the patient have a suspected source of infection? Yes: Skin breakdown/wound. Risk Assessment: Do you want to hurt yourself or someone else? Patient reports no desire to harm self or others. Onset of symptoms was February 25, 2022. Transition of care: patient was not received from another setting of care. 19:35 Method Of Arrival: EMS: [facility] 19:35 Acuity: LUIS 3 jb4 Triage Assessment: 22:03 Bite description: bite sustained to neck by a spider, animal information: [facility] vaccination(s) is not applicable. General: Appears in no apparent distress. Behavior is calm, cooperative, appropriate for age. 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 - Social history:: Smoking status: Patient reports the use of cigarette tobacco products, denies chronic smoking, but will smoke occasionally, Patient/guardian denies using alcohol, street drugs. - Family history:: not pertinent. Screenin:45 Abuse screen: Denies threats or abuse. Nutritional screening: No deficits noted. 1 Tuberculosis screening: No symptoms or risk factors identified. Fall Risk None identified. Assessment: 19:45 Reassessment: No changes from previously documented assessment. Pain: Complains of pain bh1 in left submandibular area. Derm: Skin has lesions on UNDER LEFT CHIN Skin is red. Vital Signs: 19:35 BP 127 / 84; Pulse 108; Resp 18; Temp 99.3(O); Pulse Ox 100% on R/A; Weight 78.47 kg jb4 (R); Height 5 ft. 4 in. (162.56 cm) (R); Pain 9/10; 19:35 Body Mass Index 29.70 (78.47 kg, 162.56 cm) jb4 ED Course: 19:28 Patient arrived in ED. as 19:38 Triage completed. [facility] 19:38 Arm band placed on right wrist. [facility] 19:44 Ronny Stafford MD is Attending Physician. [facility] 19:45 Arlene Asif RN is Primary Nurse. 1 19:45 No apparent distress. Resting quietly. Awaiting ED provider evaluation. 1 19:45 Patient has correct armband on for positive identification. Bed in low position. Call 1 light in reach. 19:45 No provider procedures requiring assistance completed. Patient did not have IV access bh during this emergency room visit. 20:20 No apparent distress. Resting quietly. Awaiting ED provider evaluation. 1 21:20 Martín Oakes MD is Referral Physician. [facility] 22:03 IV discontinued, intact, bleeding controlled, No redness/swelling at site. [facility] Administered Medications: 21:45 Drug: Bactrim (trimethoprim-sulfamethoxazole) (160 mg-800 mg (DS) 1 tablet Route: PO; bh1 22:02 Follow up: Response: No adverse reaction 1 21:45 Drug: Motrin (ibuprofen) 600 mg Route: PO; bh1 22:02 Follow up: Response: No adverse reaction [facility] 21:50 Drug: Doxycycline 200 mg Route: PO; bh1 22:02 Follow up: Response: No adverse reaction [facility] 22:02 Not Given (NOT AVAILALBEe): Bactroban (mupirocin) Ointment 2 % 1 application Topical bh1 once Medication: 19:45 VIS not applicable for this client. 1 Outcome: 21:21 Discharge ordered by . lj 22:02 Discharged to home ambulatory. [facility] 22:02 Condition: good 22:02 Discharge instructions given to patient, Instructed on discharge instructions, follow up and referral plans. medication usage, Demonstrated understanding of instructions, follow-up care, medications, wound care, Prescriptions given X 4. 22:04 Patient left the ED. [facility] Signatures: Ronny Stafford MD MD cha Martinez, Amelia as Bryson, James, CHRISS RN jb4 Arlene Asif RN RN 1
--- NOTE | 2022-02-26 21:23 | EDPHYS ---
Physician Documentation [facility] Name: Meenakshi Ojeda Age: 31 yrs Sex: Female : 1990 Arrival Date: 02/26/2022 Time: 19:28 Bed 25 Private MD: ED Physician Ronny Stafford HPI: 02/26 21:18 This 31 yrs old Female presents to ER via EMS with complaints of Insect Bite. lj 21:18 The patient presents with cellulitis of the chin. Description: The affected area is lj small, confluent, erythematous. Onset: The symptoms/episode began/occurred 2 day(s) ago. Possible cause(s): unknown. Associated signs and symptoms: Pertinent positives: drainage, erythema, swelling. Modifying factors: the symptoms are alleviated by nothing, the symptoms are aggravated by pressure. Severity of symptoms: At their worst the symptoms were mild, in the emergency department the symptoms are unchanged. The patient has not experienced similar symptoms in the past. 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 - Social history:: Smoking status: Patient reports the use of cigarette tobacco products, denies chronic smoking, but will smoke occasionally, Patient/guardian denies using alcohol, street drugs. - Family history:: not pertinent. ROS: 21:18 Constitutional: Negative for fever, chills, and weight loss, Eyes: Negative for injury, lj pain, redness, and discharge, ENT: Negative for injury, pain, and discharge, Neck: Negative for injury, pain, and swelling, Cardiovascular: Negative for chest pain, palpitations, and edema, Respiratory: Negative for shortness of breath, cough, wheezing, and pleuritic chest pain, Abdomen/GI: Negative for abdominal pain, nausea, vomiting, diarrhea, and constipation, Back: Negative for injury and pain, : Negative for injury, bleeding, discharge, and swelling, MS/Extremity: Negative for injury and deformity, Neuro: Negative for headache, weakness, numbness, tingling, and seizure, Psych: Negative for depression, anxiety, suicide ideation, homicidal ideation, and hallucinations, Allergy/Immunology: Negative for hives, rash, and allergies, Endocrine: Negative for neck swelling, polydipsia, polyuria, polyphagia, and marked weight changes, Hematologic/Lymphatic: Negative for swollen nodes, abnormal bleeding, and unusual bruising. 21:18 Skin: Positive for erythema, swelling, of the chin. Exam: 21:18 Constitutional: This is a well developed, well nourished patient who is awake, alert, lj and in no acute distress. Head/Face: Normocephalic, atraumatic. Eyes: Pupils equal round and reactive to light, extra-ocular motions intact. Lids and lashes normal. Conjunctiva and sclera are non-icteric and not injected. Cornea within normal limits. Periorbital areas with no swelling, redness, or edema. ENT: Nares patent. No nasal discharge, no septal abnormalities noted. Tympanic membranes are normal and external auditory canals are clear. Oropharynx with no redness, swelling, or masses, exudates, or evidence of obstruction, uvula midline. Mucous membranes moist. Neck: Trachea midline, no thyromegaly or masses palpated, and no cervical lymphadenopathy. Supple, full range of motion without nuchal rigidity, or vertebral point tenderness. No Meningismus. Chest/axilla: Normal chest wall appearance and motion. Nontender with no deformity. No lesions are appreciated. Cardiovascular: Regular rate and rhythm with a normal S1 and S2. No gallops, murmurs, or rubs. Normal PMI, no JVD. No pulse deficits. Respiratory: Lungs have equal breath sounds bilaterally, clear to auscultation and percussion. No rales, rhonchi or wheezes noted. No increased work of breathing, no retractions or nasal flaring. Abdomen/GI: Soft, non-tender, with normal bowel sounds. No distension or tympany. No guarding or rebound. No evidence of tenderness throughout. Back: No spinal tenderness. No costovertebral tenderness. Full range of motion. MS/ Extremity: Pulses equal, no cyanosis. Neurovascular intact. Full, normal range of motion. Neuro: Awake and alert, GCS 15, oriented to person, place, time, and situation. Cranial nerves II-XII grossly intact. Motor strength 5/5 in all extremities. Sensory grossly intact. Cerebellar exam normal. Normal gait. Psych: Awake, alert, with orientation to person, place and time. Behavior, mood, and affect are within normal limits. 21:18 Skin: abscess, not appreciated, cellulitis, that is mild, induration, that is mild is noted, injury, is not appreciated, no rash present. Vital Signs: 19:35 BP 127 / 84; Pulse 108; Resp 18; Temp 99.3(O); Pulse Ox 100% on R/A; Weight 78.47 kg jb4 (R); Height 5 ft. 4 in. (162.56 cm) (R); Pain 9/10; 19:35 Body Mass Index 29.70 (78.47 kg, 162.56 cm) jb4 MDM: 19:44 Patient medically screened. [facility] 21:23 Differential diagnosis: abscess, allergic reaction, cellulitis, insect bite. Data lj reviewed: vital signs, nurses notes, lab test result(s). Data interpreted: monitoring engineer: not applicable for this patient encounter. rate is 108 beats/min, rhythm is regular, Pulse oximetry: on room air is 100 %. Counseling: I had a detailed discussion with the patient and/or guardian regarding: the historical points, exam findings, and any diagnostic results supporting the discharge/admit diagnosis, the need for outpatient follow up, for definitive care, a family practitioner, a general surgeon. 02/26 21:56 Order name: Urine Dipstick-Ancillary [facility] 02/26 21:17 Order name: Urine Dipstick-Ancillary (obtain specimen); Complete Time: 21:55 [facility] 02/26 21:17 Order name: Urine Test (obtain specimen); Complete Time: 21:55 [facility] Administered Medications: 21:45 Drug: Bactrim (trimethoprim-sulfamethoxazole) (160 mg-800 mg (DS) 1 tablet Route: PO; 1 22:02 Follow up: Response: No adverse reaction [facility] 21:45 Drug: Motrin (ibuprofen) 600 mg Route: PO; 1 22:02 Follow up: Response: No adverse reaction [facility] 21:50 Drug: Doxycycline 200 mg Route: PO; 1 22:02 Follow up: Response: No adverse reaction [facility] 22:02 Not Given (NOT AVAILALBEe): Bactroban (mupirocin) Ointment 2 % 1 application Topical bh1 once Disposition Summary: 02/26/22 21:21 Discharge Ordered Location: Home [facility] Problem: new lj Symptoms: have improved lj Condition: Stable lj Diagnosis - Insect bite of other specified part of neck lj - Cellulitis of face - anterior neck lj Followup: lj - With: Private Physician - When: 2 - 3 days - Reason: Recheck today's complaints, Continuance of care, Re-evaluation by your physician Followup: lj - With: Martín Oakes MD - When: 2 - 3 days - Reason: Recheck today's complaints, Continuance of care, Re-evaluation by your physician Discharge Instructions: - Discharge Summary Sheet lj - Insect Bite, Adult, [id number] lj - Insect Bite, Adult lj - Cellulitis, Adult lj - Cellulitis, Adult, [id number] [facility] Forms: - Medication Reconciliation Form [facility] - Thank You Letter [facility] - Antibiotic Education [facility] - Prescription Opioid Use [facility] Prescriptions: - Centany 2 % Topical ointment - apply 1 application by TOPICAL route 3 times per day; 15 gram; Refills: 0, [facility] Product Selection Permitted - Ibuprofen 600 mg Oral Tablet - take 1 tablet by ORAL route every 6 hours As needed take with food; 30 tablet; [facility] Refills: 0, Product Selection Permitted - Doxycycline Hyclate 100 mg Oral Tablet - take 1 tablet by ORAL route every 12 hours; 20 tablet; Refills: 0, Product [facility] Selection Permitted - Bactrim DS 800-160 mg Oral Tablet - take 1 tablet by ORAL route every 12 hours for 10 days; 20 tablet; Refills: 0, [facility] Product Selection Permitted Signatures: Ronny Stafford MD MD cha Bryson, James, RN RN jb4 Arlene Asif RN RN bh1
[2022-02-26 21:55] LABS: Urine Blood 2+ (Negative); Urine Glucose Negative (Negative); Urine Protein 1+ (Negative); Urine Specific Gravity >=1.030 (1.005-1.030)
[2022-02-26] MEDS ORDERED: IBUPROFEN 200 MG TAB PO ONE (22:03)
[2022-02-26] MEDS ORDERED: IBUPROFEN 400 MG TAB ONE (22:04)
[2022-02-26] MEDS ORDERED: DOXYCYCLINE 100 MG CAP PO ONE (22:04)
[2022-02-26] MEDS ORDERED: SMZ./TMP. 800/160 MG TABLET ONE (22:04)
[2022-02-26 22:43] VITALS: BP 127/84; TEMP 99.3; O2SAT 100
== END 2022-02-26 22:04 | disposition home or self-care (01) ==
LOC: ER 19:24
DX: L03.211 Cellulitis of face (principal); Z88.1 Allergy status to other antibiotic agents; Z88.0 Allergy status to penicillin; Z88.8 Allergy status to other drugs, medicaments and biological substances
CPT/HCPCS: 81003; 99283

== ENCOUNTER 2022-04-22 03:51 | Emergency (ER) | payer OTHER ==
--- OUTSIDE RECORDS SUMMARY | 2022-04-22 03:54 | XMS REPORT | Continuity of Care Document ---
:1990 Author Organization [facility] t Address [address] [place] [address] Care Team Providers Name Role Phone Morena Schmitz Primary Care Physician [phone] Morena Schmitz Attending Clinician [phone] John Leon Attending Clinician Unavailable Teto Máqruez Attending Clinician NELSON RIVERA Admitting Clinician Unavailable Payers Payer Name Policy Type Policy Number Effective Date Expiration Date S ource Problems Condition Condition Condition Status Onset Resolution Last Treating Co mments Source Name Details Category Date Date Treatment Clinician Date Well woman Well woman Disease Active U nivers exam exam 8-24 ity of 00:00: [address] Over Over Disease Active Univers weight weight 8-24 ity of 00:00: [address] Gonorrhea Gonorrhea Disease Active Uni vers 7-29 ity of 00:00: [address] Atypical Atypical Disease Active Overview: Un mauricio [...] Anxiety Anxiety Disease Active Overview: Univ ers 04-16 Formattin ity of 00:00: g of this [place] 00 note Medical might be Branch different from the original. No med Allergies, Adverse Reactions, Alerts Allergy Allergy Status Severity Reaction(s) Onset Inactive Treating Comm ents Source Name Type Date Date Clinician Penicill DA Active [facility] [address] [facility]: d [facility] Penic[facility] DA Active [facility] [address] 00:[facility]: d 00 [facility] Penicill Propensi Active Other - See Decrease d Univers ins ty to comments 1-12 seizure ity of adverse 00:00: threshold [place] reaction 00 Medical s Branch [place] Propensi Active Anaphylaxis Un mauricio ty to 8-28 ity of adverse 00:00: [place] reaction 00 Medical s Branch Social History Social Habit Start Date Stop Date Quantity Comments Source Exposure to 2022-04-02 2022-04-12 Not sure [facility] SARS-CoV-2 00:00:00 10:56:00 [facility] (event) Branch Alcohol intake 2022-04-12 2022-04-12 0 /d University of 00:00:00 00:00:00 [facility] Branch Tobacco use and 2022-04-12 2022-04-12 User of smokeless Un iversity of exposure 00:00:00 00:00:00 tobacco [facility] [place] Tobacco Comment 2022-04-12 2022-04-12 Vapes every day Univ ersity of 00:00:00 00:00:00 [facility] [place] History of 2014-10-19 Cigarette Smoker Universi ty of tobacco use 00:00:00 [facility] [place] Sex Ass[birth year] At [birth year] Universit y of 00:00:00 00:00:00 [facility] [place] Smoking Status Start Date Stop Date Source Ex-smoker 2022-04-12 00:00:00 2022-04-12 00:00:00 Universi ty of [facility] [place] Medications Ordered Filled Start Stop Current Ordering Indication Dosage Frequency Signature Comments Components Source Medication Medication Date Date Medication? Clinician (SIG) Name Name levETIRAcet Yes 500mg Take 1 Uni vers am (KEPPRA) 8-24 tablet by ity of 500 mg 11:19: mouth 2 [place] tablet 10 (two) Medical times Branch daily. ALPRAZOLAM Yes Take by [facility] ers ORAL 8-24 mouth. ity of 10:58: [place] 10 [facility] Branch diphenhydrA 2020-08 Yes [id number] 25mg Take 1 Univers MINE 0-07 capsule by ity of (BENADRYL) 00:00: mouth [place] 25 mg 00 every 6 Medical capsule (six) Branch hours as needed for Itching or Allergies. Immunizations Ordered Filled Immunization Date Status Comments Sourc e Immunization Name Name HPV9 2022-04-12 Completed University of 00:00:00 [facility] [place] SARS-COV-2 COVID-19 2021-12-22 Completed [facility] rsity of VALENTINO/J&J VACCINE 00:00:00 [facility] [place] HPV 2016-08-10 Completed University of 00:00:00 [facility] [place] Influenza Virus 2016-06-15 Completed Universit y of Vaccine Quad IM 3+ 00:00:00 [facility] TDAP 2016-06-15 Completed University of 00:00:00 [facility] [place] Influenza Virus 2016-01-11 Completed Universit y of Vaccine Quad IM 3+ 00:00:00 [facility] TDAP 2015-02-18 Completed University of 00:00:00 [facility] [place] Influenza Virus 2014-08-31 Completed Universit y of Vaccine Quad IM 00:00:00 [place] Med ical Multi-dose 6+ MO Branch Vital Signs Vital Name Observation Time Observation Value Comments Source Systolic blood 2022-04-12 15:56:00 131 mm[Hg] Univer sity [facility] Diastolic blood 2022-04-12 15:56:00 84 mm[Hg] [facility] Heart rate 2022-04-12 15:56:00 88 /min [facility] Body temperature 2022-04-12 15:56:00 36.56 Josy [facility] Respiratory rate 2022-04-12 15:56:00 18 /min [facility] Body height 2022-04-12 15:56:00 162.6 cm [facility] Body weight 2022-04-12 15:56:00 77.656 kg [facility] BMI 2022-04-12 15:56:00 29.39 kg/m2 [facility] Procedures Procedure Date / Time Performing Clinician Source Performed POCT TEST 2022-04-12 17:03:00 Morena Suárez [facility] GARDASIL 9 (HPV 9V) 2022-04-12 17:02:23 Morena Suárez [facility] VACCINE [facility] PROLACTIN 2022-04-12 16:51:00 Morena Suárez [facility] THYROID STIMULATING 2022-04-12 16:51:00 Morena Suárez [facility] HORMONE [facility] CBC WITH DIFF 2022-04-12 16:51:00 Morena Suárez [facility] GC & CHLAMYDIA 2022-04-12 16:51:00 Morena Suárez [facility] AMPLIFIED ASSAY [facility] HIV 1/2 AG-AB WITH 2022-04-12 16:51:00 Morena Suárez [facility] REFLEX [facility] TRICHOMONAS AMPLIFIED 2022-04-12 16:51:00 [facility] [place] 2022-04-12 16:51:00 [facility] Branch Encounters Start End Encounter Admission Attending Care Care Encounter Source Date/Time Date/Time Type Type Clinicians Facility Department ID 2022-04-12 2022-04-12 Office Kamini [facility] [id number] Univers 10:30:00 11:58:19 Visit Morena Soto [employer]OUND E[employer]ECT[employer] TECHNICIAN [id number] [place] as MATERNAL [id number] Med ical & CHILD [address] [place] [address] 2021-03-18 2021-03-18 Emergency EM Edward, HCAMN LOPEZ [id number] [facility] 18:12:00 20:50:00 John [id number] [facility] 2021-03-17 2021-03-17 Office Josh [facility] [id number] 15 07:52:09 08:49:51 Visit Teto Martin 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 pallidum infection. Cannot exclude incubating or early syphilis. Submit a second specimen in 2-4 weeks if syphilis is clinically suspected. Equivocal - Further testing to follow. Reactive - Further testing to follow. Lab Interpretation (test code = Normal 13037-0) [facility] [id number] 08:58:39 Test Item Value Reference Range Interpretation Comments TSH (test code = See_Comment [Automated message] [id number]) The system [employer] generated this result transmitted ref erence range: 0.45 - 4 .70 mIU/L. The refe rence range was not u sed to interpret this result as normal/abnor mal. Lab Interpretation (test Normal code = 52808-0) [facility] 07:21:35 Test Item Value Reference Range Interpretation Comments PROLACTIN (test code = 6262487163) 6.5 ng/mL 3.3-26.7 Lab Interpretation (test code = Normal 37872-0) [facility] AG-AB WITH [id number] 05:39:11 Test Item Value Reference Range Interpretation Comments HIV Negative Negative Semi-quantitative (test code = 18425-5) LUIS (test code = Non-reactive for HIV-1 LUIS) antigen and HIV-1/HIV-2 antibodies. ?No laboratory evidence of HIV infection. ?Repeat in 2-4 weeks if acute HIV infection is suspected. [facility] WITH [id number] 04:01:22 Test Item Value Reference Range Interpretation Comments WBC (test code = See_Comment [Automated 6790-2) message] The sy stem which generated this result transmitted reference range : 4.30 - 11.10 10*3/?L. The reference range was not used to interpret this result as normal/abnormal . RBC (test code = See_Comment H [Automated 599-8) message] The sy stem which generated this result transmitted reference range : 3.93 - 5.25 10*6/?L. The reference range was not used to interpret this result as normal/abnormal . HGB (test code = 16.3 g/dL 11.6-15 H 718-7) HCT (test code = 47.0 % 35.7-45.2 H 4544-3) MCV (test code = 89.0 fL 80.6-95.5 787-2) MCH (test code = 30.9 pg 25.9-32.8 785-6) MCHC (test code = 34.7 g/dL 31.6-35.1 786-4) RDW-SD (test code = 42.9 fL 39-49.9 09087-5) RDW-CV (test code = 13.2 % 12-15.5 788-0) PLT (test code = See_Comment [Automated 777-3) message] The sy stem which generated this result transmitted reference range : 166 - 358 10*3/ ?L. The reference r jeevan was not used to interpret this result as normal/abnormal . MPV (test code = 10.3 fL 9.5-12.9 10450-7) NRBC/100 WBC (test See_Comment [Automat ed code = 6253521789) message] The system which generated this result transmitted reference range : 0.0 - 10.0 /100 WBCs. The refer ence range was not u sed to interpret th is result as normal/abnormal . NRBC x10^3 (test code See_Comment [Auto mated = 4097870454) message] The s ystem which generated this result transmitted reference range : 10*3/?L. The reference range was not used to interpret this result as normal/abnormal . GRAN MAT (NEUT) % 48.7 % (test code = 770-8) IMM GRAN % (test code 0.30 % = 8374139189) LYMPH % (test code = 41.2 % 736-9) MONO % (test code = 6.8 % 5905-5) EOS % (test code = 2.4 % 713-8) BASO % (test code = 0.6 % 706-2) GRAN MAT x10^3(ANC) 4.25 10*3/uL 1.88-7.09 (test code = 8781975407) IMM GRAN x10^3 (test 0.03 10*3/uL 0-0.06 code = 8211448253) LYMPH x10^3 (test code 3.60 10*3/uL 1.32-3.29 H = 731-0) MONO x10^3 (test code 0.59 10*3/uL 0.33-0.92 = 742-7) EOS x10^3 (test code = 0.21 10*3/uL 0.03-0.39 711-2) BASO x10^3 (test code 0.05 10*3/uL 0.01-0.07 = 704-7) Lab Interpretation Abnormal (test code = 62471-4) [facility] [id number] 17:03:00 Test Item Value Reference Range Interpretation Comments POCT PREG (test code = 1605) Negative On board controls acceptable with C Yes Line (test code = 3574) POCT PREG LOT # (test code = 3575) POCT PREG TEST DATE (test code = 3576) [facility] SERUM [id number] 19:15:00 Test Item Value Reference Range Interpretation Comments HCG SERUM QUAL (test code = HCGQL) NEGATIVE NEGATIVE BASIC METABOLIC [id number] 19:12:00 Test Item Value Reference Range Interpretation [...] CA) 8.1 mg/dl 8.0-10.5 N CBC W/AUTO [id number] 19:05:00 Test Item Value Reference Range Interpretation [...] 0.00-0.01 N NRBC#) - CT HEAD/BRAIN W/O [id number] 19:04:00 [facility] 1990 Sex: F FAX: John James MD [place]: St: REG Name: FATOU HESS [facility] : 1990 Age/S: 30/F [address] [facility] Unit: [id number] Loc: [address] [place]: [place] [address] Acct: [id number] Dis Date: Status: REG ER PHONE #: [phone] Exam Date: 03/18/2021 1844 FAX #: [phone] Reason:Seizure EXAMS: CPT CODE: [id number] CT HEAD/BRAIN W/O CONT 70459 Location: CT head, 03/18/21 COMPARISON EXAMS:None of the brain TECHNIQUE: CT examination of the brain was performed without contraston a helical scanner. Scanning conducted from skull base to vertex in the axial plane acquiring contiguous 5mm slice thickness . The examination was performed on a [email or web address]] at helical CT scanner utilizing low-dose radiation technique. Automatic exposure control timing was utilized to minimize radiation dose. CLINICAL HISTORY: Seizure activity FINDINGS: No positive mass-effect, midline shift, extra-axial fluid collections or intracranial hemorrhages seen. In particular, no subarachnoid hemorrhage is identified. No intra or extra-axial masses. Bone windows unremarkable. No significant sinus disease is noted. No acute territorial infarction is seen. No focal area of gliosis is identified. IMPRESSION: Unremarkable CT examination of the brain without contrast at 1904 Reported and signed by: Cally Liriano M.D. CC: John Leon MD Technologist: Aileen Parsons Trnscrd Dt/Tm: 03/18/2021 (1903) [place]6 Orig Print D/T: S: 03/18/2021 (1907 PAGE 1 Signed Report
--- NOTE | 2022-04-22 05:01 | ER ---
Nurse's Notes [facility] Name: Meenakshi Ojeda Age: 31 yrs Sex: Female : 1990 Arrival Date: 04/22/2022 Time: 03:54 Bed 11 Private MD: Diagnosis: Dental caries, unspecified;Dental root caries Presentation: 04/22 04:00 Chief complaint: Patient states: "I have a bad tooth abscess that's been going on for 3 as6 days" noted swelling to left side of face. Coronavirus screen: At this time, the client does not indicate any symptoms associated with coronavirus-19. Ebola Screen: No symptoms or risks identified at this time. Initial Sepsis Screen: Does the patient meet any 2 criteria? No. Patient's initial sepsis screen is negative. Does the patient have a suspected source of infection? No. Patient's initial sepsis screen is negative. Risk Assessment: Do you want to hurt yourself or someone else? Patient reports no desire to harm self or others. Onset of symptoms was April 19, 2022. 04:00 Method Of Arrival: Ambulatory as6 04:00 Acuity: LUIS 4 as6 Triage Assessment: 05:08 General: Appears in no apparent distress. Behavior is calm, cooperative, appropriate tw5 for age. Historical: - Allergies: 04:02 PENICILLINS; as6 - Home Meds: 04:02 Keppra Oral [Active]; as6 - PMHx: 04:02 Anxiety; Asthma; Seizures; as6 - PSHx: 04:02 hernia; as6 - Immunization history:: Client reports receiving the Ángel \\T\\ Ángel single-dose vaccine. - Social history:: Smoking status: Patient reports the use of cigarette tobacco products, denies chronic smoking, but will smoke occasionally. - Family history:: not pertinent. Screenin:07 Abuse screen: Denies threats or abuse. Denies injuries from another. Nutritional tw5 screening: No deficits noted. Nutritional screening: No deficits noted. Tuberculosis screening: No symptoms or risk factors identified. Fall Risk None identified. Assessment: 05:07 Pain: Complains of pain in left cheek and left jaw Pain currently is 9 out of 10 on a tw5 pain scale. EENT: Reports pain. Vital Signs: 04:00 BP 124 / 78; Pulse 86; Resp 18 S; Temp 98.4(O); Pulse Ox 100% on R/A; Weight 78.47 kg as6 (R); Height 5 ft. 4 in. (162.56 cm) (R); Pain 10/10; 04:00 Body Mass Index 29.70 (78.47 kg, 162.56 cm) as6 ED Course: 03:54 Patient arrived in ED. bp1 03:57 Santa Schneider is Primary Nurse. tw5 04:00 Ronny Stafford MD is Attending Physician. [facility] 04:02 Triage completed. as6 04:03 Arm band placed on. as6 04:59 Pascual Sandoval DDS is Referral Physician. lj 05:07 Patient has correct armband on for positive identification. tw5 05:07 No provider procedures requiring assistance completed. Patient did not have IV access tw5 during this emergency room visit. Administered Medications: 05:03 Drug: KeFLEX (cephalexin) 500 mg Route: PO; tw 05:07 Follow up: Response: No adverse reaction; Medication administered at discharge. tw 05:03 Drug: [place] (HYDROcodone-acetaminophen) 10 mg-325 mg 1 tabs Route: PO; tw5 05:07 Follow up: Response: No adverse reaction; Medication administered at discharge.; RASS: tw5 Alert and Calm (0) 05:03 Drug: Motrin (ibuprofen) 600 mg Route: PO; tw 05:07 Follow up: Response: No adverse reaction; Medication administered at discharge. tw5 Medication: 05:07 VIS not applicable for this client. tw5 Outcome: 05:00 Discharge ordered by . [facility] 05:07 Discharged to home ambulatory. tw 05:07 Condition: good 05:07 Discharge instructions given to patient, Instructed on discharge instructions, follow up and referral plans. Demonstrated understanding of instructions, follow-up care, medications, Prescriptions given X 3. 05:08 Patient left the ED. tw5 Signatures: Ronny Stafford MD MD cha [place], Brittany bp1 Santa Schneider tw5 Matthew Gaona, RN RN as6
--- NOTE | 2022-04-22 05:01 | EDPHYS ---
Physician Documentation [facility] Name: Meenakshi Ojeda Age: 31 yrs Sex: Female : 1990 Arrival Date: 04/22/2022 Time: 03:54 Bed 11 Private MD: HAL Physician Ronny Stafford HPI: 04/22 04:54 This 31 yrs old Female presents to ER via Ambulatory with complaints of lj Toothache, Abscess. 04:54 The patient presents with broken tooth/teeth, lost tooth/teeth, pain, redness, lj swelling. The problem is located in the left buccal mucosa and upper left first molar. Onset: The symptoms/episode began/occurred 2 day(s) ago. Duration: The symptoms are continuous, and are steadily getting worse. Modifying factors: The symptoms are alleviated by nothing, the symptoms are aggravated by nothing. Associated signs and symptoms: The patient has no apparent associated signs or symptoms. Severity of symptoms: At their worst the symptoms were moderate, in the emergency department the symptoms are unchanged. The patient has not experienced similar symptoms in the past. Historical: - Allergies: 04:02 PENICILLINS; as6 - Home Meds: 04:02 Keppra Oral [Active]; as6 - PMHx: 04:02 Anxiety; Asthma; Seizures; as6 - PSHx: 04:02 hernia; as6 - Immunization history:: Client reports receiving the Ángel \T\ Ángel single-dose vaccine. - Social history:: Smoking status: Patient reports the use of cigarette tobacco products, denies chronic smoking, but will smoke occasionally. - Family history:: not pertinent. ROS: 04:54 Constitutional: Negative for fever, chills, and weight loss, Eyes: Negative for injury, lj pain, redness, and discharge, Neck: Negative for injury, pain, and swelling, Cardiovascular: Negative for chest pain, palpitations, and edema, Respiratory: Negative for shortness of breath, cough, wheezing, and pleuritic chest pain, Abdomen/GI: Negative for abdominal pain, nausea, vomiting, diarrhea, and constipation, Back: Negative for injury and pain, : Negative for injury, bleeding, discharge, and swelling, MS/Extremity: Negative for injury and deformity, Skin: Negative for injury, rash, and discoloration, Neuro: Negative for headache, weakness, numbness, tingling, and seizure, Psych: Negative for depression, anxiety, suicide ideation, homicidal ideation, and hallucinations, Allergy/Immunology: Negative for hives, rash, and allergies, Endocrine: Negative for neck swelling, polydipsia, polyuria, polyphagia, and marked weight changes, Hematologic/Lymphatic: Negative for swollen nodes, abnormal bleeding, and unusual bruising. 04:54 ENT: Positive for Gum pain Exam: 04:54 Constitutional: This is a well developed, well nourished patient who is awake, alert, lj and in no acute distress. Head/Face: Normocephalic, atraumatic. Eyes: Pupils equal round and reactive to light, extra-ocular motions intact. Lids and lashes normal. Conjunctiva and sclera are non-icteric and not injected. Cornea within normal limits. Periorbital areas with no swelling, redness, or edema. Neck: Trachea midline, no thyromegaly or masses palpated, and no cervical lymphadenopathy. Supple, full range of motion without nuchal rigidity, or vertebral point tenderness. No Meningismus. Chest/axilla: Normal chest wall appearance and motion. Nontender with no deformity. No lesions are appreciated. Cardiovascular: Regular rate and rhythm with a normal S1 and S2. No gallops, murmurs, or rubs. Normal PMI, no JVD. No pulse deficits. Respiratory: Lungs have equal breath sounds bilaterally, clear to auscultation and percussion. No rales, rhonchi or wheezes noted. No increased work of breathing, no retractions or nasal flaring. Abdomen/GI: Soft, non-tender, with normal bowel sounds. No distension or tympany. No guarding or rebound. No evidence of tenderness throughout. Back: No spinal tenderness. No costovertebral tenderness. Full range of motion. Skin: Warm, dry with normal turgor. Normal color with no rashes, no lesions, and no evidence of cellulitis. MS/ Extremity: Pulses equal, no cyanosis. Neurovascular intact. Full, normal range of motion. Neuro: Awake and alert, GCS 15, oriented to person, place, time, and situation. Cranial nerves II-XII grossly intact. Motor strength 5/5 in all extremities. Sensory grossly intact. Cerebellar exam normal. Normal gait. Psych: Awake, alert, with orientation to person, place and time. Behavior, mood, and affect are within normal limits. 04:54 ENT: Mouth: Oral mucosa: moist, Gums: noted to have cellulitis, reddened, swollen, on the upper left first molar, Posterior pharynx: no acute changes, Airway: normal, no evidence of obstruction, Uvula: normal, midline, erythema, that is mild. Vital Signs: 04:00 BP 124 / 78; Pulse 86; Resp 18 S; Temp 98.4(O); Pulse Ox 100% on R/A; Weight 78.47 kg as6 (R); Height 5 ft. 4 in. (162.56 cm) (R); Pain 10/; 04:00 Body Mass Index 29.70 (78.47 kg, 162.56 cm) as6 MDM: 04:00 Patient medically screened. lj Administered Medications: 05:03 Drug: KeFLEX (cephalexin) 500 mg Route: PO; tw5 05:07 Follow up: Response: No adverse reaction; Medication administered at discharge. tw5 05:03 Drug: [place] (HYDROcodone-acetaminophen) 10 mg-325 mg 1 tabs Route: PO; tw5 05:07 Follow up: Response: No adverse reaction; Medication administered at discharge.; RASS: tw5 Alert and Calm (0) 05:03 Drug: Motrin (ibuprofen) 600 mg Route: PO; tw5 05:07 Follow up: Response: No adverse reaction; Medication administered at discharge. tw5 Disposition Summary: 04/22/22 05:00 Discharge Ordered Location: Home lj Problem: new lj Symptoms: have improved lj Condition: Stable lj Diagnosis - Dental caries, unspecified lj - Dental root caries lj Followup: lj - With: Private Physician - When: 2 - 3 days - Reason: Recheck today's complaints, Continuance of care, Re-evaluation by your physician Followup: lj - With: Pascual Sandoval DDS - When: 2 - 3 days - Reason: Recheck today's complaints, Re-evaluation by your physician Discharge Instructions: - Discharge Summary Sheet lj - Dental Caries, Adult lj - Dental Pain lj - Dental Pain, Edxp-av-[id number] lj - Dental Caries, Adult, Tlse-ok-Grox lj Forms: - Medication Reconciliation Form lj - Thank You Letter lj - Antibiotic Education lj - Prescription Opioid Use jl Prescriptions: - Cephalexin 500 mg Oral Capsule - take 1 capsule by ORAL route every 6 hours for 7 days; 28 capsule; Refills: 0, [facility] Product Selection Permitted - Ibuprofen 600 mg Oral Tablet - take 1 tablet by ORAL route every 6 hours As needed take with food; 20 tablet; [facility] Refills: 0, Product Selection Permitted - Tylenol-Codeine #3 300 mg-30 mg Oral - take 2 tablet by ORAL route every 6 hours; 20 tablet; Refills: 0, Product [facility] Selection Permitted Signatures: Ronny Stafford MD MD cha Wood, Tiffany tw5 Matthew Gaona RN RN as6
[2022-04-22] MEDS ORDERED: IBUPROFEN 200 MG TAB PO ONE (05:08)
[2022-04-22] MEDS ORDERED: HYDROCODONE/APAP 10/325 TAB ONE (05:08)
[2022-04-22] MEDS ORDERED: CEPHALEXIN 250 MG CAP ONE (05:08)
[2022-04-22] MEDS ORDERED: IBUPROFEN 400 MG TAB ONE (05:09)
[2022-04-22 07:36] VITALS: BP 124/78; TEMP 98.4; O2SAT 100
== END 2022-04-22 05:08 | disposition home or self-care (01) ==
LOC: ER 03:51
DX: K02.7 Dental root caries (principal); K02.9 Dental caries, unspecified; F17.210 Nicotine dependence, cigarettes, uncomplicated; Z88.0 Allergy status to penicillin
CPT/HCPCS: 99283

== ENCOUNTER 2023-02-09 05:47 | Emergency (ER) | payer OTHER ==
--- OUTSIDE RECORDS SUMMARY | 2023-02-09 05:52 | XMS REPORT | Continuity of Care Document ---
:1990 Author Organization [facility] t Address [address] [facility] [address] [place] [address] Care Team Providers Name Role Phone SARAHI SUÁREZ Primary Care Physician Unavailable SARAHI SUÁREZ Attending Clinician Unavailable Kamini Sarahi PASCUAL Attending Clinician [phone] Cassy REAVES Attending Clinician Unavailable Cassy Black Attending Clinician Mani Goff Attending Clinician MANI GOFF Attending Clinician Unavailable Doctor Unassigned, [place] Attending Clinician Unavailable Teto Márquez Attending Clinician TETO FLOWERS Attending Clinician Unavailable JAY GARCIA Attending Clinician Unavailable Vaccine, [facility] Attending Clinician Unavailable Humberto Mayo DO Attending Clinician HUMBERTO MAYO Attending Clinician Unavailable Lab, [facility] Attending Clinician Unavailable FORTINO DEJESUS Attending Clinician Unavailable Visit, [facility] Nurse Attending Clinician Unavailable John Leon Attending Clinician Unavailable NELSON RIVERA Admitting Clinician Unavailable Payers Payer Name Policy Type Policy Number Effective Date Expiration Date Sherlyn lovett [facility] [id number] 2022 STAR 00:00:00 Problems Condition Condition Condition Status Onset Resolution Last Treating Co mments Source Name Details Category Date Date Treatment Clinician Date GROIN PAIN GROIN Diagnosis Active 2021-082022-07-19 Memoria PAIN - 07:09:00 l Active 00:00: [place] 06/30/2022 00 [facility] Well woman Well woman Disease Active U nivers exam exam 8-24 ity of 00:00: Medical Branch Over Over Disease Active Univers weight weight 8-24 ity of 00:00: Medical Branch Gonorrhea Gonorrhea Disease Active Uni vers 7-29 ity of 00:00: Medical Branch Atypical Atypical Disease Active Overview: [...] Penicill DA Active [facility] [place] [facility] DA Active [facility]18 [place] 00:[facility]: d [facility] Penicill [...] ity of 00:00: [place] 00 Medical Branch No Known No Known Active Memori a Medicati Medicati l on on Walker Allergie Allergdomo s s Social History Social Habit Start Date Stop Date Quantity Comments Source Alcohol intake 2022-09-15 2022-09-15 0 /d University of 00:00:00 00:00:00 [facility] [place] [facility] Exposure to 2022-04-02 2022-04-12 Not sure [facility] SARS-CoV-2 00:00:00 10:56:00 [facility] (event) Branch Tobacco use and 2022-04-12 2022-04-12 User of smokeless Un iversity of exposure 00:00:00 00:00:00 tobacco [facility] [place] [facility] Tobacco Comment 2022-04-12 2022-04-12 Vapes every day [facility] ersity of 00:00:00 00:00:00 [facility] Branch History of 2014-10-19 Cigarette Smoker Universi ty of tobacco use 00:00:00 [facility] [place] [facility] Sex Ass[birth year] At [birth year] Universit y of 00:00:00 00:00:00 [facility] Smoking Status Start Date Stop Date Source Tobacco smoking status 2022-07-01 01:48:06 2022-07-01 01:48:06 [facility] Ordered Filled Start Stop Current Ordering Indication Dosage Frequency Signature Comments Components Source Medication Medication Date Date Medication? Clinician (SIG) Name Name gentamicin 2022- No 240mg 240 mg, Un mauricio injection 09-15 Intramuscu ity of 240 mg 20:30: 19:51 [place], [place]CE[place] :[place] 1 dose, On Medical Fri Branch 09/15/22 at 1430, JANET
Re ason for Anti-Infec tive: Empiric Therapy for Suspected Infection< br>Empiric Therapy Site: Pelvic
Duration of therapy: 72 hours azithromyci 2022- No 2000mg 2,000 mg, Univers n 09-15 Oral, ity of (ZITHROMAX) 19:45: 19:50 [place] :[place] dose, On Medical 2,000 mg Fri Branch 09/15/22 at 1345, JANET
Re ason for Anti-Infec tive: Empiric Therapy for Suspected Infection< br>Empiric Therapy Site: Pelvic
Duration of therapy: 72 hours levETIRAcet 0 Yes 500mg Take 1 Uni vers am (KEPPRA) 8-24 tablet by ity of 500 mg 11:19: mouth 2 [place] tablet 10 (two) Medical times Branch daily. levETIRAcet 0 Yes 500mg Take 1 Uni vers am (KEPPRA) 8-24 tablet by ity of 500 mg 11:19: mouth 2 [place] tablet 10 (two) Medical times Branch daily. levETIRAcet 0 Yes 500mg Take 1 Uni vers am (KEPPRA) 8-24 tablet by ity of 500 mg 11:19: mouth 2 [place] tablet 10 (two) Medical times Branch daily. levETIRAcet 2021-0 Yes 500mg Take 1 Uni vers am (KEPPRA) 8-24 tablet by ity of 500 mg 11:19: mouth 2 [place] tablet 10 (two) Medical times Branch daily. ALPRAZOLAM 0 Yes Take by [facility] ers ORAL 8-24 mouth. ity of 10:58: [address] ALPRAZOLAM Yes Take by [facility] ers ORAL 8-24 mouth. ity of 10:58: [address] ALPRAZOLAM Yes Take by [facility] ers ORAL 8-24 mouth. ity of 10:58: [place] 10 Medical Branch ALPRAZOLAM Yes Take by Univ ers ORAL 8-24 mouth. ity of 10:58: [place] 10 Medical Branch diphenhydrA 2020-08 Yes [id number] 25mg Take 1 Univers MINE 0-07 capsule by ity of (BENADRYL) 00:00: mouth [place] 25 mg 00 every 6 Medical capsule (six) Branch hours as needed for Itching or Allergies. diphenhydrA 2020-08 Yes [id number] 25mg Take 1 Univers MINE 0-07 capsule by ity of (BENADRYL) 00:00: mouth [place] 25 mg 00 every 6 Medical capsule (six) Branch hours as needed for Itching or Allergies. diphenhydrA 2020-08 Yes [id number] 25mg Take 1 Univers MINE 0-07 capsule by ity of (BENADRYL) 00:00: mouth [place] 25 mg 00 every 6 Medical capsule (six) Branch hours as needed for Itching or Allergies. diphenhydrA 2020-08 Yes [id number] 25mg Take 1 Univers MINE 0-07 capsule by ity of (BENADRYL) 00:00: mouth [place] 25 mg 00 every 6 Medical capsule (six) Branch hours as needed for Itching or Allergies. Immunizations Ordered Filled Immunization Date Status Comments [facility] e Immunization Name Name HPV9 2022-04-12 Completed University of 00:00:00 [facility] [place] [facility] HPV9 2022-04-12 Completed University of 00:00:00 [facility] [place] [facility] HPV9 2022-04-12 Completed University of 00:00:00 [facility] [place] [facility] HPV9 2022-04-12 Completed University of 00:00:00 [facility] [place] [facility] SARS-COV-2 COVID-19 2021-12-22 Completed Unive rsity of [place]/J&J VACCINE 00:00:00 [facility] [place] [facility] SARS-COV-2 COVID-19 2021-12-22 Completed Unive rsity of [place]/J&J VACCINE 00:00:00 [facility] [place] [facility] SARS-COV-2 COVID-19 2021-12-22 Completed Unive rsity of [place]/J&J VACCINE 00:00:00 [facility] [place] [facility] SARS-COV-2 COVID-19 2021-12-22 Completed Unive rsity of [place]/J&J VACCINE 00:00:00 [facility] [place] [facility] HPV 2016-08-10 Completed University of 00:00:00 [facility] [place] [facility] HPV 2016-08-10 Completed University of 00:00: [facility] [place] [facility] HPV 2016-08-10 Completed University of 00:00: [facility] [place] [facility] HPV 2016-08-10 Completed University of 00:00:00 [facility] [place] [facility] Influenza Virus 2016-06-15 Completed Universit y of Vaccine Quad IM 3+ 00:00:00 [facility] TDAP 2016-06-15 Completed University of 00:00: [facility] [place] [facility] Influenza Virus 2016-06-15 Completed Universit y of Vaccine Quad IM 3+ 00:00:00 [facility] TDAP 2016-06-15 Completed University of 00:00: [facility] [place] [facility] Influenza Virus 2016-06-15 Completed Universit y of Vaccine Quad IM 3+ 00:00:00 [facility] TDAP 2016-06-15 Completed University of 00:00:00 [facility] [place] [facility] Influenza Virus 2016-06-15 Completed Universit y of Vaccine Quad IM 3+ 00:00:00 [facility] TDAP 2016-06-15 Completed University of 00:00:00 [facility] [place] [facility] Influenza Virus 2016-01-11 Completed Universit y of Vaccine Quad IM 3+ 00:00:00 [facility] Influenza Virus 2016-01-11 Completed Universit y of Vaccine Quad IM 3+ 00:00:00 [facility] Influenza Virus 2016-01-11 Completed Universit y of Vaccine Quad IM 3+ 00:00:00 [facility] Influenza Virus 2016-01-11 Completed Universit y of Vaccine Quad IM 3+ 00:00:00 [facility] TDAP 2015-02-18 Completed University of 00:00:00 [facility] [place] [facility] TDAP 2015-02-18 Completed University of 00:00:00 [facility] [place] [facility] TDAP 2015-02-18 Completed University of 00:00:00 [facility] [place] [facility] TDAP 2015-02-18 Completed University of 00:00:00 [facility] [place] [facility] Influenza Virus 2014-08-31 Completed Universit y of Vaccine Quad IM 00:00:00 [place] Med ical Multi-dose 6+ MO Branch Influenza Virus 2014-08-31 Completed Universit y of Vaccine Quad IM 00:00:00 [place] Med ical Multi-dose 6+ MO Branch Influenza Virus 2014-08-31 Completed Universit y of Vaccine Quad IM 00:00:00 [place] Med ical Multi-dose 6+ MO Branch Influenza Virus 2014-08-31 Completed Universit y of Vaccine Quad IM 00:00:00 [place] Med ical Multi-dose 6+ MO Branch Vital Signs Vital Name Observation Time Observation Value Comments Source Systolic blood 2022-09-15 17:57:00 120 mm[Hg] Univer sity of pressure [facility] [place] [facility] Diastolic blood 2022-09-15 17:57:00 99 mm[Hg] Unive rsity of pressure [facility] [place] [facility] Heart rate 2022-09-15 17:57:00 94 /min Universi ty of [facility] [place] [facility] Body temperature 2022-09-15 17:57:00 37.11 Josy [facility] ersity of [facility] Branch Respiratory rate 2022-09-15 17:57:00 18 /min Univ ersity of [facility] [place] [facility] Body height 2022-09-15 17:57:00 162.6 cm Universi ty of [place] [facility] [place] Body weight 2022-09-15 17:57:00 79.833 kg Universi ty of [place] [facility] [place] BMI 2022-09-15 17:57:00 30.21 kg/m2 Universi ty of [place] [facility] [place] Oxygen saturation in 2022-09-15 17:57:00 100 /min [facility] Arterial blood by [facility] Pulse oximetry Branch Systolic blood 2022-04-12 15:56:00 131 mm[Hg] Univer sity of pressure [facility] [place] [facility] Diastolic blood 2022-04-12 15:56:00 84 mm[Hg] Unive rsity of pressure [facility] [place] [facility] Heart rate 2022-04-12 15:56:00 88 /min Universi ty of [place] [facility] [place] Body temperature 2022-04-12 15:56:00 36.56 Josy Univ ersity of [place] [facility] Respiratory rate 2022-04-12 15:56:00 18 /min Univ ersity of [place] [facility] Body height 2022-04-12 15:56:00 162.6 cm Universi ty of [place] [facility] Body weight 2022-04-12 15:56:00 77.656 kg Universi ty of [place] [facility] BMI 2022-04-12 15:56:00 29.39 kg/m2 Universi ty of [place] [facility] Systolic (mm Hg) 2022-07-01 06:33:00 Grant Cardoso Diastolic (mm Hg) 2022-07-01 06:33:00 Mery beckymarcia Munozann Heart Rate 2022-07-01 06:33:00 Chrissie Munozann Height 2022-07-01 00:34:00 162.56 cm [facility] BMI Calculated 2022-07-01 00:34:00 Paulie Louis Weight 2022-07-01 00:34:00 Chrissie Munozann Temperature Oral (F) 2022-07-01 00:34:00 98.2 F [facility] Procedures Procedure Date / Time Performing Clinician Source Performed POCT TEST 2022-09-15 18:19:00 Cassy Reaves [facility] URINALYSIS 2022-09-15 18:13:00 Cassy Reaves [place] o f [facility] [place] [facility] CONSENT/REFUSAL FOR 2022-09-15 17:48:27 [facility]assigned, [facility] Name Medical Branch POCT TEST 2022-04-12 17:03:00 Sarahi Suárez [facility] GARDASIL 9 (HPV 9V) 2022-04-12 17:02:23 Sarahi Suárez [facility] VACCINE [facility] PROLACTIN 2022-04-12 16:51:00 Sarahi Su[facility]rez [facility] THYROID STIMULATING 2022-04-12 16:51:00 Sarahi Suárez [facility] HORMONE [facility] CBC WITH DIFF 2022-04-12 16:51:00 Sarahi Suárez [facility] GC & CHLAMYDIA 2022-04-12 16:51:00 Sarahi Suárez [facility] AMPLIFIED ASSAY [facility] HIV 1/2 AG-AB WITH 2022-04-12 16:51:00 Sarahi Suárez [facility] TRICHOMONAS AMPLIFIED 2022-04-12 16:51:00 [facility] GALV ONLY - SYPHILIS 2022-04-12 16:51:00 [facility] IGG[facility]IGM Medical Branch Encounters Start End Encounter Admission Attending Care Care Encounter Source Date/Time Date/Time Type Type Clinicians Facility Department ID 2023-04-12 2023-04-12 Outpatient R KAMINI, [facility] [id number] Univers 09:30:00 09:30:00 SARAHI antoine [facility] [place] [facility] 2022-09-20 2022-09-20 Outpatient R KAMINI, [facility] [id number] Univers 10:30:00 10:30:00 SARAHI amylauren o f [facility] [place] [facility] 2022-09-16 2022-09-16 Refill Kamini, [facility] [id number] Univers 00:00:00 00:00:00 Sarahi Soto 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 [id number] ity [facility] [id number] [place] as MATERNAL [id number] Med ical & CHILD [address] [place] [address] 2022-09-15 2022-09-15 Emergency X KYMBERLY, K [facility] ERT [id number] Univers 11:58:00 15:40:00 ity of [facility] [place] [facility] 2022-09-15 2022-09-15 Emergency Kymberly, K [facility] [id number] Univers 11:58:00 15:40:00 [facility] [id number] i ty [facility] [id number] [place] [id number] [address] 2022-08-15 2022-08-15 Outpatient R KAMINI, [facility] [id number] Univers 10:00:00 10:00:00 SARAHI amylauren o f [facility] [place] [facility] 2022-07-01 2022-07-01 Emergency [facility] [id number] Memoria 00:20:35 06:35:00 r Albert 00 [facility] 2022-07-01 2022-07-01 Emergency [facility] [id number] Memoria 00:20:35 06:35:00 r Albert 00 [facility] 2022-06-30 2022-07-01 Outpatient Mani Goff [facility] [id number] 18:20:35 00:35:00 Zhigan 2022-06-30 2022-07-01 Emergency E FAN, MANI [facility] [id number] [facility] 18:20:00 00:35:00 2022-04-22 2022-04-[address] [facility] [id number] Univers 00:00:00 00:00:00 Sarahi C 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 [id number] ity of [facility] [id number] [place] as MATERNAL [id number] [facility] ical & CHILD [address] [place] [address] 2022-04-13 2022-04-[address] [facility] [id number] Univers 00:00:00 00:00:00 Sarahi C 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 [id number] ity of [facility] [id number] [place] as MATERNAL [id number] [facility] [address] [place] [address] 2022-04-12 2022-04-[address] [facility] [id number] Univers 10:30:00 11:58:19 Visit Sarahi Charles 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 [id number] ity of [facility] [id number] [place] as MATERNAL [phone] [facility] & [address] 2022-04-12 2022-04-12 Outpatient R AKINFORMERLY [facility], [facility] [id number] Univers 10:30:00 11:58:19 SARAHI ity o f [facility] [place] [facility] 2022-04-12 2022-04-12 Outpatient R AKINFORMERLY [facility], [facility] [id number] Univers 10:30:00 10:30:00 SARAHI ity o f [facility] [place] [facility] 2022-04-12 2022-04-12 Outpatient R AKINSIPE, [facility] [id number] Univers 08:15:00 08:15:00 SARAHI ity o f [facility] [place] [facility] 2022-04-12 2022-04-12 Orders Doctor SIFUENTES [id number] Univers 00:00:00 00:00:00 Only Unassigned, ASH [id number] ity of [place] [facility] [id number] [place] as [id number] [facility] 00[place] 2022-03-30 2022-03-30 Telephone Lionel [facility] [id number] Univers 00:00:00 00:00:00 Teto Martin 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 [id number] ity [facility] [id number] [place] as MATERNAL [id number] [facility] ical & CHILD [address] [place] [address] 2022-03-16 2022-03-16 Outpatient R LIONEL [facility] [id number] Univers 08:45:00 08:45:00 TETO reyesy o f [facility] [place] [facility] 2021-12-24 2021-12-24 Outpatient R RADHA [facility] [id number] Univers 17:00:00 17:00:00 [facility] 2021-12-22 2021-12-22 Imm/Inj Vaccine, [facility] [id number] Univers 11:30:00 11:40:00 Visit Humberto Mayo [place] 350.1.13 .10 [facility] [id number] PROF[place] [id number] Nv dical NAL [address] [place] [address] 2021-12-22 2021-12-22 Outpatient R MARIA ESTHER [facility] [id number] Univers 11:30:00 11:30:00 HUMBERTO itlauren [facility] 2021-12-19 2021-12-19 Outpatient R [facility] [id number] Univers 09:00:00 09:00:00 ity [facility] 2021-12-17 2021-12-17 Refill Akinalondra, [facility] [id number] Univers 00:00:00 00:00:00 Sarahi Soto 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 [id number] ity [facility] [id number] [place] MATERNAL [id number] [facility] ical & CHILD [address] [place] [address] 2021-10-19 2021-10-19 Refill Akinalondra, [facility] [id number] Univers 00:00:00 00:00:00 Sarahi C 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 [id number] ity of REGIONAL [id number] [place] as MATERNAL [id number] [facility] & [address] 2021-08-25 2021-08-25 Patient Services Assistant Lab, Ang-Rmchp [facility] 1.2.840. [id number] Univers 13:00:00 13:53:39 Visit Teto Flowers 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 [id number] ity of REGIONAL [id number] [place] as MATERNAL [id number] [address] 2021-08-25 2021-08-25 Outpatient R LIONEL [facility] [id number] Univers 13:00:00 13:00:00 TETO barreto o f [facility] [place] [facility] 2021-07-28 2021-07-28 Outpatient Veronica DEJESUS [facility] [id number] Univers 14:20:00 14:20:00 FORTINO barreto [facility] 2021-07-06 2021-07-06 [facility] [id number] Univers 00:00:00 00:00:00 Sarahi C 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 [id number] ity of REGIONAL [id number] [place] MATERNAL [id number] [address] 2021-07-04 2021-07-04 [facility] [id number] Univers 00:00:00 00:00:00 Sarahi C 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 [id number] ity of REGIONAL [id number] [place] MATERNAL [id number] [address] 2021-07-04 2021-07-04 Refill Akinsipe, [facility] [id number] Univers 00:00:00 00:00:00 Sarahi C 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 [id number] ity of REGIONAL [id number] [place] as MATERNAL [id number] [facility] CHILD [address] [place] [address] 2021-07-04 2021-07-04 Refill Akinsipe, [facility] [id number] Univers 00:00:00 00:00:00 Sarahi C 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 [id number] ity of REGIONAL [id number] [place] as MATERNAL [id number] [facility] & CHILD [address] [place] [address] 2021-07-04 2021-07-04 Refill Akinsipe, [facility] [id number] Univers 00:00:00 00:00:00 Sarahi C 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 [id number] ity of REGIONAL [id number] [place] as MATERNAL [id number] [facility] & CHILD [address] [place] [address] 2021-07-04 2021-07-04 Refill Akinsisusan, [facility] [id number] Univers 00:00:00 00:00:00 Sarahi C 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 [id number] ity of REGIONAL [id number] [place] as MATERNAL [phone] [facility] & CHILD [address] [place] [address] 2021-05-26 2021-05-26 Nurse Visit, [facility] Nurse [facility] 1.2 .840.114 [id number] Univers 13:49:58 14:39:32 Visit Teto Flowers 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 [id number] ity of REGIONAL [id number] [place] as MATERNAL [id number] [facility] & CHILD [address] [place] [address] 2021-05-26 2021-05-26 Outpatient Veronica FLOWERS [facility] [id number] Univers 13:30:00 13:30:00 TETO antoine [facility] [place] [facility] 2021-05-26 2021-05-26 Outpatient Veronica FLOWERS [facility] [id number] Univers 09:30:00 09:30:00 TETO antoine [facility] [place] [facility] 2021-05-26 2021-05-[address] [facility] 1.2.840.114 [id number] Univers 00:00:00 00:00:00 Sarahi C 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 350.1.13.10 ity of REGIONAL [id number] [place] as MATERNAL [id number] [facility] & CHILD [address] [place] [address] 2021-05-24 2021-05-[address] [facility] 1.2.840.114 [id number] Univers 00:00:00 00:00:00 Sarahi C 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 350.1.13.10 ity of REGIONAL [id number] [place] as MATERNAL [id number] [facility] & CHILD [address] [place] [address] 2021-05-23 2021-05-23 Patient Services Assistant [facility] 1.2.840. [id number] Univers 13:07:50 13:22:50 Visit Teto Flowers 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 350.1.13.10 ity of [facility] [id number] [place] as MATERNAL [id number] [facility] & CHILD [address] [place] [address] 2021-05-23 2021-05-23 Outpatient R [facility] [id number] Univers 13:00:00 13:00:00 ity of [facility] [place] [facility] 2021-05-10 2021-05-10 [facility] [id number] Univers 13:15:00 13:15:00 SHANICEJASON barreto o f [facility] 2021-03-18 2021-03-18 Emergency EM Edward, HCAMN LOPEZ [id number] [facility] 18:12:00 20:50:[address] [place] [address] 2021-03-17 2021-03-17 Office Lionel [facility] [id number] [id number] Univers 07:52:09 08:49:51 Visit Teto Martin 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 [id number] ity of [facility] [id number] [place] as MATERNAL [id number] [facility] & CHILD [address] [place] [address] 2021-03-17 2021-03-17 Office Lionel [facility] [id number] 07:52:09 08:49:51 Visit Teto Martin 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 [id number] REGIONAL [id number] MATERNAL [id number] & CHILD [address] [place] [address] 2021-03-17 2021-03-17 Outpatient Veronica FLOWERS [facility] [id number] Univers 07:45:00 07:45:00 TETO itlauren o arash [facility] [place] [facility] 2021-02-11 2021-02-[address] [facility] 1.2.840.114 [id number] Univers 00:00:00 00:00:00 Sarahi C 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 350.1.13.10 ity of REGIONAL 4.2.7.2.686 [place] as MATERNAL [phone] [address] 2021-02-08 2021-02-08 Nurse Visit, [facility] Nurse [facility] 1.2 .840.114 [id number] Univers 13:00:59 13:33:34 Visit Sarahi Suárez 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 350.1.13. 10 ity of REGIONAL 4.2.7.2.686 [place] as MATERNAL [phone] [address] 2021-02-08 2021-02-08 [facility] [id number] Univers 10:30:00 10:30:00 SARAHI antoine [facility] [place] [facility] 2021-02-07 2021-02-[address] [facility] 1.2.840.114 [id number] Univers 00:00:00 00:00:00 Sarahi C 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 350.1.13.10 ity of REGIONAL 4.2.7.2.686 [place] as MATERNAL [id number] [facility] & CHILD [address] [place] [address] 2021-02-02 2021-02-02 [facility] 1.2.840.114 [id number] Univers 00:00:00 00:00:00 Sarahi C 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 350.1.13.10 ity of REGIONAL 4.2.7.2.686 [place] as MATERNAL [phone] Med ical & CHILD [address] [place] [address] 2021-02-01 2021-02-01 Telephone Kamini [facility] 1.2.840.114 [id number] Univers 00:00:00 00:00:00 Sarahi Soto 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 350.1.13.10 ity of REGIONAL 4.2.7.2.686 [place] as MATERNAL [phone] [facility] ical & CHILD [address] [place] [address] 2021-01-31 2021-01-31 Office Sarahi Suárez [facility] 1.2.8 40.114 [id number] Univers 10:03:04 11:18:52 Visit eTto Flowers 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 350.1.13.10 ity of REGIONAL 4.2.7.2.686 [place] as MATERNAL [id number] [facility] ical & CHILD [address] [place] [address] 2021-01-31 2021-01-31 Outpatient R LIONEL WVSUPRIYA [facility] [id number] Univers 10:45:00 10:45:00 TETO barreto o f [facility] 2021-01-31 2021-01-31 Orders Doctor MARIA 1.2.840.114 [id number] Univers 00:00:00 00:00:00 Only Unassigned, ASH 350.1.13.10 ity of [place] [facility] 4.2.7.2.686 [place] as [phone] [address] 2021-01-18 2021-01-18 Orders Doctor MARIA 1.2.840.114 [id number] Univers 00:00:00 00:00:00 Only Unassigned, ASH 350.1.13.10 ity of [place] [facility] 4.2.7.2.686 [place] as [phone] [address] 2020-01-02 2020-01-02 Patient Doctor [facility] 1.2.840.114 [id number] Univers 00:00:00 00:00:00 Secure Msg Unassigned, 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 350.1.13.10 ity of [place] REGIONAL 4.2.7.2.686 [place] as MATERNAL [phone] [facility] ical & CHILD [address] [place] [address] 2020-01-01 2020-01-01 Refill Doctor [facility] 1.2.898.187 [id number] Univers 00:00:00 00:00:00 Unassigned, Y HEALTH 350.1.13.10 it[place] [facility] [place] [phone] [facility] [address] 2020-01-01 2020-01-01 Refill Doctor [facility] 1.2.769.931 [id number] Univers 00:00:00 00:00:00 Unassigned, Y HEALTH 350.1.13.10 ity [place] [facility] [id number] [facility] [address] 2020-01-01 2020-01-01 Patient Doctor MARIA 1.2.840.114 [id number] Univers 00:00:00 00:00:00 Secure Msg Unassigned, ASH 350.1.13.10 ity of [place] [facility] 4.2.7.2.686 [place] as [phone] [facility] [address] Results Test Description Test Time Test Comments Results Result Comments Source POCT TEST 2022-09-15 18:19:00 Test Item Value Reference Range Interpretation Comme nts POCT PREG (test code = 1605) negative On board controls acceptable with C Line (test code = 3574) present POCT PREG LOT # (test code = 3575) [id number] POCT PREG TEST DATE (test code = 3576) 11/18/2023 Lab Interpretation (test code = 41296-5) Normal [facility]12 02:36:00 Test Item Value Reference Range Interpretation Comments AGAP (test code = AGAP) 11.6 10.0-20.0 [facility]BlkezwlICPCUCWFB3554-24-86 02:36:00 Test Item Value Reference Range Interpretation Comments eGFR (test code = eGFR) 74 [facility]CtpkxxjDZTMNXXDQZ2644-97-68 02:36:00 Test Item Value Reference Range Interpretation Comments WBC X 10x3 (test code = WBC X 10x3) 10.3 3.7-10.4 [facility]lineWzedenaCZXTCLRWGB3349-25-90 02:36:00 Test Item Value Reference Range Interpretation Comments RBC X 10x6 (test code = RBC X 10x6) 5.14 4.20-5.40 [place] 887272-11-12 02:36:00 Test Item Value Reference Range Interpretation Comments Hgb (test code = Hgb) 16.0 12.0-16.0 [place] 887272-11-12 02:36:00 Test Item Value Reference Range Interpretation Comments Hct (test code = Hct) 46.6 36.0-48.0 [place] 887272-11-12 02:36:00 Test Item Value Reference Range Interpretation Comments MCV (test code = MCV) 90.8 80.0-98.0 [place] 887272-11-12 02:36:00 Test Item Value Reference Range Interpretation Comments MCH (test code = MCH) 31.2 pg 27.0-31.0 [place] 887272-11-12 02:36:00 Test Item Value Reference Range Interpretation Comments MCHC (test code = MCHC) 34.3 32.0-36.0 [place] 887272-11-12 02:36:00 Test Item Value Reference Range Interpretation Comments RDW (test code = RDW) 13.5 11.5-14.5 [place] 887272-11-12 02:36:00 Test Item Value Reference Range Interpretation Comments Platelet (test code = Platelet) 258 133-450 [facility]lineCdidktrSHVATXRDNZ6658-37-97 02:36:00 Test Item Value Reference Range Interpretation Comments MPV (test code = MPV) 8.2 7.4-10.4 [place] [address]-11-12 02:36:00 Test Item Value Reference Range Interpretation Comments Segs (test code = Segs) 48.9 45.0-75.0 [place] 887272-11-12 02:36:00 Test Item Value Reference Range Interpretation Comments Lymphocytes (test code = Lymphocytes) 41.7 20.0-40.0 [place] [address]-11-12 02:36:00 Test Item Value Reference Range Interpretation Comments Sodium Lvl (test code = Sodium Lvl) 141 135-145 [facility] HospitalUvdacjkMXYRSFDSG9771-18-72 02:36:00 Test Item Value Reference Range Interpretation Comments Potassium Lvl (test code = Potassium 3.6 3.5-5.1 Lvl) [place] 462072-11-12 02:36:00 Test Item Value Reference Range Interpretation Comments Chloride Lvl (test code = Chloride Lvl) 102 95-109 [place] 462072-11-12 02:36:00 Test Item Value Reference Range Interpretation Comments CO2 (test code = CO2) 31 24-32 [place] [address]-11-12 02:36:00 Test Item Value Reference Range Interpretation Comments Calcium Lvl (test code = Calcium Lvl) 9.4 8.5-10.5 [place] [address]-11-12 02:36:00 Test Item Value Reference Range Interpretation Comments AGAP (test code = AGAP) 11.6 10.0-20.0 [place] [address]-11-12 02:36:00 Test Item Value Reference Range Interpretation Comments eGFR (test code = eGFR) 74 [facility]lineKstnkluIMLDRHUMTL0359-77-09 02:36:00 Test Item Value Reference Range Interpretation Comments WBC X 10x3 (test code = WBC X 10x3) 10.3 3.7-10.4 [place] 887272-11-12 02:36:00 Test Item Value Reference Range Interpretation Comments RBC X 10x6 (test code = RBC X 10x6) 5.14 4.20-5.40 [place] 887272-11-12 02:36:00 Test Item Value Reference Range Interpretation Comments Hgb (test code = Hgb) 16.0 12.0-16.0 [place] 887272-11-12 02:36:00 Test Item Value Reference Range Interpretation Comments Hct (test code = Hct) 46.6 36.0-48.0 [place] [address]-11-12 02:36:00 Test Item Value Reference Range Interpretation Comments MCV (test code = MCV) 90.8 80.0-98.0 [place] [address]-11-12 02:36:00 Test Item Value Reference Range Interpretation Comments MCH (test code = MCH) 31.2 pg 27.0-31.0 [place] 887272-11-12 02:36:00 Test Item Value Reference Range Interpretation Comments MCHC (test code = MCHC) 34.3 32.0-36.0 [place] 887272-11-12 02:36:00 Test Item Value Reference Range Interpretation Comments RDW (test code = RDW) 13.5 11.5-14.5 [place] [address]-11-12 02:36:00 Test Item Value Reference Range Interpretation Comments Platelet (test code = Platelet) 258 133-450 [place] 887272-11-12 02:36:00 Test Item Value Reference Range Interpretation Comments MPV (test code = MPV) 8.2 7.4-10.4 [place] [address]-11-12 02:36:00 Test Item Value Reference Range Interpretation Comments Segs (test code = Segs) 48.9 45.0-75.0 [place] [address]-11-12 02:36:00 Test Item Value Reference Range Interpretation Comments Lymphocytes (test code = Lymphocytes) 41.7 20.0-40.0 [place] [address]-11-12 02:36:00 Test Item Value Reference Range Interpretation Comments Monocytes (test code = Monocytes) 6.0 2.0-12.0 [place] [address]-11-12 02:36:00 Test Item Value Reference Range Interpretation Comments Eosinophils (test code = 2.3 See_Comment [A utomated message] The Eosinophils) system which ge nerated this result tra nsmitted reference range : <=4.0. The reference r jeevan was not used to int erpret this result as normal/abnormal . [place] [address]-11-12 02:36:00 Test Item Value Reference Range Interpretation Comments Basophils (test code = 1.1 See_Comment [Aut omated message] The Basophils) system which ge nerated this result tra nsmitted reference range : <=1.0. The reference r jeevan was not used to int erpret this result as normal/abnormal . [place] [address]-11-12 02:36:00 Test Item Value Reference Range Interpretation Comments Neutrophils # (test code = Neutrophils 5.0 1.5-8.1 #) [place] [address]-11-12 02:36:00 Test Item Value Reference Range Interpretation Comments Lymphocytes # (test code = Lymphocytes 4.3 1.0-5.5 #) [place] [address]-11-12 02:36:00 Test Item Value Reference Range Interpretation Comments Monocytes (test code = Monocytes) 6.0 2.0-12.0 [facility]lineFdwzsvsZVEADRFRIB0818-27-38 02:36:00 Test Item Value Reference Range Interpretation Comments Monocytes # (test code 0.6 See_Comment [Aut omated message] The = Monocytes #) system which generated this result tra nsmitted reference range : <=0.8. The reference r jeevan was not used to int erpret this result as normal/abnormal . [facility]lineZcvofmzPXFGNDTJWF7568-15-06 02:36:00 Test Item Value Reference Range Interpretation Comments Eosinophils # (test code 0.2 See_Comment [A utomated message] The = Eosinophils #) system whic h generated this result tra nsmitted reference range : <=0.5. The reference r jeevan was not used to int erpret this result as normal/abnormal . [facility] ShorelineTufvmsvHUPUEXCHAW5452-80-69 02:36:00 Test Item Value Reference Range Interpretation Comments Basophils # (test code 0.1 See_Comment [Aut omated message] The = Basophils #) system which generated this result tra nsmitted reference range : <=0.2. The reference r jeevan was not used to int erpret this result as normal/abnormal . [facility] HospitalNqyrpbrGOWOROCZJ4144-46-21 02:36:00 Test Item Value Reference Range Interpretation Comments hCG Tot (test code = hCG Tot) no gt [facility] HospitalNdegnrnLDWKWVRBR0495-42-15 02:36:00 Test Item Value Reference Range Interpretation Comments Glucose Lvl (test code = Glucose Lvl) 96 70-99 [facility] HospitalCewwnofGDCSODDBA3293-59-05 02:36:00 Test Item Value Reference Range Interpretation Comments BUN (test code = BUN) 13 7-22 [place] 462072-11-12 02:36:00 Test Item Value Reference Range Interpretation Comments Creatinine Lvl (test code = Creatinine 1.05 0.50-1.40 Lvl) [facility] ShorelineMipabzzFTUTZQMYDQ2906-02-17 02:36:00 Test Item Value Reference Range Interpretation Comments Eosinophils (test code = 2.3 See_Comment [A utomated message] The Eosinophils) system which ge nerated this result tra nsmitted reference range : <=4.0. The reference r jeevan was not used to int erpret this result as normal/abnormal . [place] 887272-11-12 02:36:00 Test Item Value Reference Range Interpretation Comments Basophils (test code = 1.1 See_Comment [Aut omated message] The Basophils) system which ge nerated this result tra nsmitted reference range : <=1.0. The reference r jeevan was not used to int erpret this result as normal/abnormal . [facility] ShorelineYlkkywqZRYZYFWIZC7503-74-43 02:36:00 Test Item Value Reference Range Interpretation Comments Neutrophils # (test code = Neutrophils 5.0 1.5-8.1 #) [facility]lineNwsoynhLQNQOILTVL4390-41-76 02:36:00 Test Item Value Reference Range Interpretation Comments Lymphocytes # (test code = Lymphocytes 4.3 1.0-5.5 #) [facility] ShorelineGjwxjrmERXXYDWUOH5560-31-95 02:36:00 Test Item Value Reference Range Interpretation Comments Monocytes # (test code 0.6 See_Comment [Aut omated message] The = Monocytes #) system which generated this result tra nsmitted reference range : <=0.8. The reference r jeevan was not used to int erpret this result as normal/abnormal . [facility] ShorelineIkbnwzqNCQDNVEMMC1547-91-54 02:36:00 Test Item Value Reference Range Interpretation Comments Eosinophils # (test code 0.2 See_Comment [A utomated message] The = Eosinophils #) system whic h generated this result tra nsmitted reference range : <=0.5. The reference r jeevan was not used to int erpret this result as normal/abnormal . [facility] ShorelineEcwppfoFPMMGVZOYX6055-62-24 02:36:00 Test Item Value Reference Range Interpretation Comments Basophils # (test code 0.1 See_Comment [Aut omated message] The = Basophils #) system which generated this result tra nsmitted reference range : <=0.2. The reference r jeevan was not used to int erpret this result as normal/abnormal . [facility] HospitalRoqtmrsNGNDPNQGF8532-56-99 02:36:00 Test Item Value Reference Range Interpretation Comments hCG Tot (test code = hCG Tot) no gt [facility] HospitalVpyfekbQGUBDCWXU7740-08-99 02:36:00 Test Item Value Reference Range Interpretation Comments Glucose Lvl (test code = Glucose Lvl) 96 70-99 [facility] HospitalWlnzinbYAJMDMKHV0152-53-76 02:36:00 Test Item Value Reference Range Interpretation Comments BUN (test code = BUN) 13 7-22 [facility]viewYgxphnuDIXQWUTNB8080-17-17 02:36:00 Test Item Value Reference Range Interpretation Comments Creatinine Lvl (test code = Creatinine 1.05 0.50-1.40 Lvl) [facility]viewVhjdgmzOPGTMWLLK1055-94-98 02:36:00 Test Item Value Reference Range Interpretation Comments Sodium Lvl (test code = Sodium Lvl) 141 135-145 [facility] LongviewDojozauNYONKCBHU1964-71-77 02:36:00 Test Item Value Reference Range Interpretation Comments Potassium Lvl (test code = Potassium 3.6 3.5-5.1 Lvl) [facility] LongviewOarguzgUTIYQRKRZ0210-67-89 02:36:00 Test Item Value Reference Range Interpretation Comments Chloride Lvl (test code = Chloride Lvl) 102 95-109 [facility] HospitalWbnotbxIFXQQTBUD9772-73-90 02:36:00 Test Item Value Reference Range Interpretation Comments CO2 (test code = CO2) 31 24-32 [facility] HospitalGpbcesmRFBDOQXDZ4823-46-38 02:36:00 Test Item Value Reference Range Interpretation Comments Calcium Lvl (test code = Calcium Lvl) 9.4 8.5-10.5 [facility] [place] [facility] ONLY - SYPHILIS IGG/EDU9059-04-13 16:28:03 Test Item Value Reference Range Interpretation Comments Syphilis IgG/IgM (test Non-reactive Non-reactive code = 88564-3) LUIS (test code = LUIS) Non-reactive - No serologic evidence of T. pallidum infection. Cannot exclude incubating or early syphilis. Submit a second specimen in 2-4 weeks if syphilis is clinically suspected. Equivocal - Further testing to follow. Reactive - Further testing to follow. Lab Interpretation (test Normal code = 64832-6) [facility] RockTHYROID STIMULATING JIEWTEK5982-75-01 08:58:39 Test Item Value Reference Range Interpretation Comments TSH (test code = See_Comment [Automated message] 3005053410) The system [employer] generated this result transmitted ref erence range: 0.45 - 4 .70 mIU/L. The refe rence range was not u sed to interpret this result as normal/abnor mal. Lab Interpretation (test Normal code = 22830-6) [facility] RockPROLACTIN2022-08-25 07:21:35 Test Item Value Reference Range Interpretation Comments PROLACTIN (test code = 2879371859) 6.5 ng/mL 3.3-26.7 Lab Interpretation (test code = Normal 84441-8) [facility] RockHIV 1/2 AG-AB WITH [id number] 05:39:11 Test Item Value Reference Range Interpretation Comments HIV Negative Negative Semi-quantitative (test code = 46522-4) LUIS (test code = Non-reactive for HIV-1 LUIS) antigen and HIV-1/HIV-2 antibodies. ?No laboratory evidence of HIV infection. ?Repeat in 2-4 weeks if acute HIV infection is suspected. [facility] RockCB WITH [id number] 04:01:22 Test Item Value Reference Range Interpretation Comments WBC (test code = See_Comment [Automated 6590-2) message] The sy stem which generated this result transmitted reference range : 4.30 - 11.10 10*3/?L. The reference range was not used to interpret this result as normal/abnormal . RBC (test code = See_Comment H [Automated 519-8) message] The sy stem which generated this [...] RDW-SD (test code = 42.9 fL 39-49.9 93350-6) RDW-CV (test code = 13.2 % 12-15.5 788-0) PLT (test code = See_Comment [Automated 777-3) message] The sy stem which generated this result transmitted reference range : 166 - 358 10*3/ ?L. The reference r jeevan was not used to interpret this result as normal/abnormal . MPV (test code = 10.3 fL 9.5-12.9 99565-4) NRBC/100 WBC (test See_Comment [Automat ed code = 5705311691) message] The system which generated this result transmitted reference range : 0.0 - 10.0 /100 WBCs. The refer ence range was not u sed to interpret th is result as normal/abnormal . NRBC x10^3 (test code See_Comment [Auto mated = 2321303551) message] The s ystem which generated this result transmitted reference range : 10*3/?L. The reference range was not used to interpret this result as normal/abnormal . GRAN MAT (NEUT) % 48.7 % (test code = 770-8) IMM GRAN % (test code 0.30 % = 9968977503) LYMPH % (test code = 41.2 % 736-9) MONO % (test code = 6.8 % 5905-5) EOS % (test code = 2.4 % 713-8) BASO % (test code = 0.6 % 706-2) GRAN MAT x10^3(ANC) 4.25 10*3/uL 1.88-7.09 (test code = 5149244457) IMM GRAN x10^3 (test 0.03 10*3/uL 0-0.06 code = 0767175522) LYMPH x10^3 (test code 3.60 10*3/uL 1.32-3.29 H = 731-0) MONO x10^3 (test code 0.59 10*3/uL 0.33-0.92 = 742-7) EOS x10^3 (test code = 0.21 10*3/uL 0.03-0.39 711-2) BASO x10^3 (test code 0.05 10*3/uL 0.01-0.07 = 704-7) Lab Interpretation Abnormal (test code = 40812-5) [facility] RockPOCT [id number] 17:03:00 Test Item Value Reference Range Interpretation Comments POCT PREG (test code = 1605) Negative On board controls acceptable with C Yes Line (test code = 3574) POCT PREG LOT # (test code = 3575) POCT PREG TEST DATE (test code = 3576) [facility] RockHCG SERUM [id number] 19:15:00 Test Item Value Reference Range Interpretation Comments HCG SERUM QUAL (test code = HCGQL) NEGATIVE NEGATIVE BASIC METABOLIC [id number] 19:12:00 Test Item Value Reference Range Interpretation [...] CA) 8.1 mg/dl 8.0-10.5 N CBC W/AUTO [id number] 19:05:00 Test Item Value Reference Range Interpretation [...] 0.00-0.01 N NRBC#) - CT HEAD/BRAIN W/O [id number] 19:04:00 [facility] [place] : 1990 Sex: F FAX: John James MD [place]: St: REG Name: FATOU OJEDA [facility] : 1990 Age/S: 30/F [address] [facility] Unit: [id number] Loc: E.ERS2 [place], [place]: [place] [id number] Acct: [id number] Dis Date: Status: REG ER PHONE #: [phone] Exam Date: 03/18/2021 1844 FAX #: [phone] Reason: Seizure EXAMS: CPT CODE: [id number] CT HEAD/BRAIN W/O CONT [id number] Location: CT head, 03/18/21 COMPARISON EXAMS:None of the brain TECHNIQUE: CT examination of the brain was performed without contrast on a helical scanner. Scanning conducted from skull base to vertex in the axial plane acquiring contiguous 5mm slice thickness . The examination was performed on a [facility] helical CT scanner utilizing low-dose radiation technique. [...] (1903) [id number] Orig Print D/T: S: 03/18/2021 (1907 PAGE 1 Signed Report Notes Date/Time Note Provider Source 2021-03-18 18:21:00-00:00 [facility] ([facility]) EMERGENCY PROVIDER REPORT REPORT#:[id number] REPORT STATUS: Signed DATE:03/18/21 TIME: 1820 PATIENT: FATOU OJEDA UNIT #: [id number] ROOM/BED: AGE: 30 SEX: F PCP PHYS: Undefined Provider SERVICE AUTHOR: John Leon MD * ALL edits or amendments must be made on the [email or web address] document * HPI-Seizure Free Text HPI Notes Free Text HPI Notes 30-year-old female reports history of epilepsy p resents here via EMS. The patient reports she was arrested yesterd ay. 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 Patien t reports she did not fall. She reports she leaned over onto the car. Seizur e resolved on its own yesterday. The patient was taken to [facility]. The sherry abdi reports paramedics showed up at the fdc but di d not bring her to an ER. Patient was released from fdc today. EMS was called at the fdc t o come pick the patient up to take her to an ER. No seizure activity today. Patient den pilo any other complaints. Patient reports he takes Keppra 500 mg twice shadi ly for seizures. She reports she has not taken her Keppra in the past 2 days. She reports she needs more refills. She reports she follows up with a neuro logist. General Confirmed Patient Yes Initial Greet Date/Time 03/18/211813 Presentation Chief Complaint Seizure, generalized Risk-Seizure Risk Stratification NIH Stroke Scale NIH Stroke Scale Response Value NIHSS Applicable? No 0 Total 0 [place] Coma Score: Copyright Sir Ran Van Copyright Sir Casandra Van Eye opening: (4) Spontaneous Verbal response: (5) Oriented Best motor response: (6) Obeys commands GCS Score: 15 Review of Systems ROS Statements All systems rev neg except as marked. Free Text ROS Notes Free Text ROS Notes CONSTITUTIONAL: No fever, chills, fatigue. SKIN: No rash, abrasion, laceration ENT: No runny nose, congestion, sore throat. EYES: No eye discharge, eye redness, eye swellin g CARDIOVASCULAR: No chest pain, palpitations, syn cope. RESPIRATORY: No cough, shortness of breath, whee zing. GASTROINTESTINAL: No nausea, vomiting, abdominal pain. GENITOURINARY: No hematuria, dysuria, flank pain . MUSKULOSKELETAL: No joint pain, joint swelling, back pain. NEUROLOGICAL: No headache, focal weakness, numbn ess. Positive for seizure. HEMATOLOGICAL: No bleeding, bruising. PSYCHIATRY: No agitation Past Medical History - Adult Stated Complaint SEIZURE Allergies Coded Allergies: Penicillins (Severe, SWELLING 03/18/21) Calculated Suicide Risk (nurs) No risk Additional Medical History Reports history of epilepsy. Smoking status: Smoking status for patients 13 years old or old er: Unknown,if ever smoked Physical Exam Vital Signs Vital Signs First Documented: Result Date Time Pulse Ox 98 03/18 1813 B/P 143/97 03/18 1813 B/P Mean 112 03/18 1813 O2 Delivery Room air 03/18 1813 Temp 36.8 03/18 1813 Pulse 88 03/18 1813 Resp 18 03/18 1813 Last Documented: Result Date Time Pulse Ox 98 03/18 2050 B/P 111/57 03/18 2050 B/P Mean 75 03/18 2050 O2 Delivery Room air 03/18 2050 Temp 36.8 03/18 2050 Pulse 72 03/18 2050 Resp 19 03/18 2050 Review of Vital Signs Reviewed Focused PE Neurologic Neurologic Oriented X3, Speech NL, No m otor deficits, No sensory deficits, CN II - XII intact, Cerebellar NL, Gait NL Free Text PE Notes Free Text PE Notes GENERAL: Awake. Alert. No acute distress . Non-toxic appearing. Well appearing. Well developed. HEAD: Atraumatic. Normocephalic. EYES: PERRL. EOMI. Conjuctiva normal, no dischar ge. ENT: Nose normal. Moist mucous membranes. NECK: Supple. Normal range of motion. No menisgi smus. RESPIRATORY: No respiratory distress. Clear fany th sounds bilaterally. No wheezes, rales, or ronchi. CARDIOVASCULAR: Regular rate and rhythm. Normal heart sounds. No murmur, gallops , or rubs. GI: Abdomen is soft and nontender. No rebound or guarding. MUSCULOSKELETAL: Good range of motion of all karen or joints. No lower extremity edema. NEUROLOGICAL: Alert and oriented x3. Speech norm al. SKIN: Normal color. Warm and dry. PSYCHIATRIC: Normal affect Interpretation Diagnostics Lab Results Interpretation Results Laboratory Tests 03/18/211854: [Embedded Image Not Available] Laboratory Tests: 03/18 Chemistry Sodium (134.0 - 147.0 mmol/l) 142 Potassium (3.6 - 5.2 mmol/L) 3.4 L Chloride (98.0 - 107.0 mmol/l) 103 Carbon Dioxide (21.0 - 33.0 mmol/l) 32.6 Anion Gap (0 - 20) 9.8 BUN (7.0 - 18.0 mg/dl) 8 Creatinine (0.60 - 1.30 mg/dL) 0.75 Est GFR ( Amer) (133 - 145 mL/min) 118 L Est GFR (Non-Af Amer) (110 - 120 mL/min) 97 L Glucose (70.0 - 110.0 mg/dl) 129 H Calcium (8.0 - 10.5 mg/dl) 8.1 Serum , Qual (NEGATIVE) NEGATIVE Hematology WBC (4.5 - 11.0 K/mm3) 12.6 H RBC (3.80 - 5.20 M/mm3) 5.04 Hgb (12.0 - 16.0 gm/dL) 14.9 Hct (36.0 - 48.0 %) 47.1 MCV (82.0 - 99.0 UM3) 93.5 MCH (25.5 - 32.5 UUG) 29.6 MCHC (29.0 - 35.5 gm/dL) 31.6 RDW (11.5 - 15.0 %) 14.4 Plt Count (150 - 400 K/mm3) 374 MPV (7.4 - 10.4 fl) 9.7 Neut % (Auto) (49.0 - 76.0 %) 55.3 Lymph % (Auto) (23.0 - 38.0 %) 27.9 Mcmullen % (Auto) (1.0 - 10.0 %) 8.6 Eos % (Auto) (1.0 - 5.0 %) 7.2 H Baso % (Auto) (0.0 - 1.0 %) 0.6 Neut # (Auto) (2.4 - 6.3 K/mm3) 7.0 H Lymph # (Auto) (1.2 - 4.0 K/mm3) 3.5 Mcmullen # (Auto) (0.0 - 0.6 K/mm3) 1.1 H Eos # (Auto) (0.0 - 0.7 K/MM3) 0.9 H Baso # (Auto) (0.0 - 0.2 K/mm3) 0.1 Absolute Nucleated RBC (0.00 - 0.01 X10 3uL) 0. 00 Immature Gran % (0.0 - 0.4 %) 0.4 Nucleated RBC % (0.0 - 0.1 %) 0.0 Immature Gran # (0.00 - 0.07 x10 3/uL) 0.05 Recent Impressions: CAT SCAN - CT HEAD/BRAIN W/O CONT 03/18 1844 Report Impression - Status: SIGNED Entered: 03/18/20211906 IMPRESSION: Unremarkable CT examination of the b rain without contrast Impression By: Oswaldo - Cally kirkpatrick M.D. Lab Imaging Statement Laboratory radiographic studies reviewed and con sidered in the medical decision-making. Point of Care Testing Pulse Oximetry Pulse Ox % 98 On: Room air Interpretation Interpreted by me, Pulse oximetr y normal Time 1814 ECG #1 Interpretation Text/Dict Note EKG done on March 18 at 1854 and interpreted to darryl lopez at that time. Normal sinus rhythm with ventricular rate of 78. No STEMI. No rmal axis. Normal LA interval. Normal QRS duration. Normal QTc interv al. Re-Evaluation MDM Re-Evaluation/Progress #1 Text/Dict Note Patient with no further seizure activity here. P atient loaded with Keppra. Discussed seizure precaution s with the patient. Counseled her to follow-up with a primary care provider and neurologist. Patient provided with seizure precautions. Time of Re-Eval 2044 Re-Eval Status Improved Re-Eval Neurologic Exam Alert, Oriented X3, CN II - XII intact, Speech normal, No motor deficits, No sensory deficits, Cerebell ar normal, Gait normal ED Course Medication(s) Ordered Medication(s) Ordered: Central Nervous System Agents Sig/Angel Start time Last Medication Dose Route Stop Time Status Admin Levetiracetam 1,000 MG ONCE ONE 03/18 2030 DC 0 03/18 Sodium Chloride 100 ML IV 03/18 Acetaminophen 1,000 MG X1ED STA 03/18 184 CAN PO 03/18 1844 Levetiracetam 1,000 MG X1ED STA 03/18 1819 DC Sodium Chloride 100 ML IV 03/18 1833 Electrolytic, Caloric, And Ritika Sig/Angel Start time Last Medication Dose Route Stop Time Status Admin Potassium Chloride 40 MEQ X1ED STA 03/18 1951 D C 03/18 PO 03/18 Gastrointestinal Drugs Sig/Angel Start time Last Medication Dose Route Stop Time Status Admin Ondansetron HCl 4 MG X1ED PRN PRN 03/18 184 DC IV 03/19 184 Patient Discharge Departure Vital Signs/Condition Vital Signs First Documented: Result Date Time Pulse Ox 98 03/18 1813 B/P 143/97 03/18 1813 B/P Mean 112 03/18 1813 O2 Delivery Room air 03/18 1813 Temp 36.8 03/18 1813 Pulse 88 03/18 1813 Resp 18 03/18 1813 Last Documented: Result Date Time Pulse Ox 98 03/18 2050 B/P 111/57 03/18 2050 B/P Mean 75 03/18 2050 O2 Delivery Room air 03/18 2050 Temp 36.8 03/18 2050 Pulse 72 03/18 2050 Resp 19 03/18 2050 All vital signs available at the time of this en try have been reviewed. Condition Stable Clinical Impression Clinical Impression Primary Impression: Seizure Disposition Decision Discharge )( Discharged to Home Yes )( Time 2049 )( Date 03/18/21 Discharge/Care Plan Counseled Regarding Diagnosi s, Lab results, Imaging studies, Prescriptions, Need for follow-up, When to return to ED (Auto) Prescriptions Current Visit Scripts levETIRAcetam (KEPPRA) 500 MG PO BID levETIRAcetam (KEPPRA) 500 MG PO BID #60 TABS Prescriptions Reviewed Risks, Benefits, Alternat bobby treatment Patient Instructions ED Seizure, Recurrent (Adul t) Additional Instructions No driving for 3 months per [place] Law Do not operate heavy machinery Do not swim alone or take bath tub shower alone Avoid excess heat/cold, stress, lack of sleep, b right lights or sounds Drink plenty of water/electrolytes Call 911 in the event of a s eizure lasting more than 2 minutes or if it does not abort on itself and do not return back to your n ormal mental baseline Referrals PRIMARY CARE: 2-3 Days Cherry Montague MD: Call for appointment neurology Departure Forms [facility] PCP LIST Discharge Note I have spoken with the patie nt and/or caregivers. I have explained the patient's condition, diagnoses and masha atment plan based on the information available to me at this time. I have answered the patient's and/ or caregiver's questions and addressed any concerns. The patient and/or careg mauricio have as good an understanding of the patient 's diagnosis, condition and treatment plan as can be expected at this point. The vital signs have bee n stable. The patient's condition is stable and appr opriate for discharge from the emergency department. The patient will pursue further outpatient evalu ation with the primary care physician or other designated or consulting phys ician as outlined in the discharge instructions. The patient and/or caregivers are agreeable to this plan of care and follow-up instructions have been exp lained in detail. The patient and/or caregivers have received these instructio ns in written format and have expressed an understanding of the discharge inst ructions. The patient and/or caregivers are aware that any significant change in condition or worsening of symptoms should prompt an immediate return to [facility] or the closest emergency department or a call to 911. Electronically Signed by John Leon MD on at 1309 RPT #:[id number] END OF REPORT
--- NOTE | 2023-02-09 06:21 | EDPHYS ---
Physician Documentation [facility] Name: Meenakshi Ojeda Age: 32 yrs Sex: Female : 1990 Arrival Date: 02/09/2023 Time: 05:47 Bed 20 Private MD: ED Physician Moreno Sanchez HPI: 02/09 05:59 This 32 yrs old Female presents to ER via Ambulatory with complaints of Ear sp4 Pain. 06:05 32-year-old female with history of anxiety, asthma, seizures, history of bilateral sp4 tubal ligation 2015 , presents with acute onset right ear pain starting 4 days ago. Patient denied swimming or soaking in a bath tub. . 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 - Social history:: Smoking status: Patient reports the use of cigarette tobacco products, 2 a day . - Family history:: not pertinent. ROS: 06:05 Constitutional: Negative for fever, chills, and weight loss, Eyes: Negative for injury, sp4 pain, redness, and discharge, ENT: Negative for injury, and discharge, positive for right ear pain and the right ear discharge. Neck: Negative for injury, pain, and swelling. 06:05 All other systems are negative. Exam: 06:05 Constitutional: This is a well developed, well nourished patient who is awake, alert, sp4 and in no acute distress. Head/Face: Normocephalic, atraumatic. Eyes: Pupils equal round and reactive to light, extra-ocular motions intact. Lids and lashes normal. Conjunctiva and sclera are not injected. Cornea within normal limits. Periorbital areas with no swelling, redness, or edema. ENT: Nares patent. No nasal discharge, no septal abnormalities noted. Oropharynx with no redness, swelling, or masses, exudates, or evidence of obstruction, uvula midline. Mucous membranes moist. Left ear canal and TM normal, right ear canal there is redness, purulence, irritation, also right tympanic membrane redness and irritation consistent with a right otitis externa. Neck: Trachea midline, no thyromegaly or masses palpated, and no cervical lymphadenopathy. Supple, full range of motion without nuchal rigidity, or vertebral point tenderness. Chest/axilla: Normal chest wall appearance and motion. Nontender with no deformity. No lesions are appreciated. Cardiovascular: Regular rate and rhythm with a normal S1 and S2. No gallops, murmurs, or rubs. Normal PMI, no JVD. No pulse deficits. Respiratory: Lungs have equal breath sounds bilaterally, clear to auscultation and percussion. No rales, rhonchi or wheezes noted. No increased work of breathing, no retractions or nasal flaring. Abdomen/GI: Soft, non-tender, with normal bowel sounds. No distension or tympany. No guarding or rebound. No evidence of tenderness throughout. Back: No spinal tenderness. No costovertebral tenderness. Skin: Warm, dry with normal turgor. Normal color with no rashes, no lesions, and no evidence of cellulitis. MS/ Extremity: Pulses equal, no cyanosis. Neurovascular intact. Full, normal range of motion. Neuro: Awake and alert, GCS 15, oriented to person, place, time, and situation. Cranial nerves II-XII grossly intact. Motor strength 5/5 in all extremities. Sensory grossly intact. Psych: Awake, alert, with orientation to person, place and time. Behavior, mood, and affect are within normal limits Vital Signs: 05:57 BP 139 / 93; Pulse 72; Resp 16; Temp 98.2(O); Pulse Ox 100% on R/A; Weight 84.37 kg; kd3 Height 5 ft. 4 in. ; 05:57 Body Mass Index 31.93 (84.37 kg, 162.56 cm) kd3 MDM: 06:05 Differential diagnosis: otitis media, otitis externa, ruptured TM, foreign body, acute sp4 otalgia, cerumen impaction, serotympanum. Data reviewed: vital signs, nurses notes, old medical records. ED course: Patient will be prescribed cefdinir, Ciprodex, high-dose ibuprofen. Advised to supplement with Tylenol as needed for pain.. 06:11 Patient medically screened. sp4 Administered Medications: 06:20 Drug: Rocephin (cefTRIAXone) IM 1 grams Route: IM; Site: right vastus lateralis; vc1 06:37 Follow up: Response: No adverse reaction; Marked relief of symptoms vc1 06:20 Drug: Ketorolac IM 60 mg Route: IM; Site: left vastus lateralis; vc1 06:37 Follow up: Response: No adverse reaction; Marked relief of symptoms vc1 06:20 Drug: Acetaminophen PO 1000 mg Route: PO; vc1 06:37 Follow up: Response: No adverse reaction vc1 Disposition Summary: 02/09/23 06:20 Discharge Ordered Location: Home sp4 Problem: new sp4 Symptoms: have improved sp4 Condition: Stable sp4 Diagnosis - Other otitis externa, right ear sp4 Followup: sp4 - With: Private Physician - When: As needed - Reason: Discharge Instructions: - Discharge Summary Sheet sp4 - Otitis Externa, [id number] sp4 Prescriptions: - cefdinir 300 mg Oral capsule - take 1 capsule by ORAL route every 12 hours for 10 days; 20 capsule; Refills: sp4 0, Product Selection Permitted - Ibuprofen 600 mg Oral Tablet - take 1 tablet by ORAL route every 6 hours As needed take with food; 30 tablet; sp4 Refills: 0, Product Selection Permitted - Ciprodex 0.3-0.1 % Otic drops,suspension - instill 4 drops by OTIC route every 12 hours for 7 days Right ear only; 7 sp4 milliliter; Refills: 0, Product Selection Permitted Signatures: Laura Sims, RN RN kd3 Alona Kwan RN RN vc1 Moreno Sanchez MD MD sp4
--- NOTE | 2023-02-09 06:21 | ER ---
Nurse's Notes [facility] Name: Meenakshi Ojeda Age: 32 yrs Sex: Female : 1990 Arrival Date: 02/09/2023 Time: 05:47 Bed 20 Private MD: Diagnosis: Other otitis externa, right ear Presentation: 02/09 05:57 Chief complaint: Patient states: I am having some right ear pain with drainage that kd3 started about 4 days ago. It is very sharp and is causing a sharp headache on the right side of my head. Coronavirus screen: Vaccine status: Patient reports receiving the 2nd dose of the covid vaccine. Ebola Screen: No symptoms or risks identified at this time. Initial Sepsis Screen: Does the patient meet any 2 criteria? No. Patient's initial sepsis screen is negative. Does the patient have a suspected source of infection? No. Patient's initial sepsis screen is negative. Risk Assessment: Do you want to hurt yourself or someone else? Patient reports no desire to harm self or others. Onset of symptoms was February 09, 2023. 05:57 Method Of Arrival: Ambulatory kd3 05:57 Acuity: LUIS 4 kd3 Triage Assessment: 05:58 General: Appears uncomfortable, Behavior is calm, cooperative. Pain: Complains of pain kd3 in right occipital area, right ear and right base of the skull. EENT: Reports pain in right ear. BAKER PIE: 05:58 LMP 01/29/2023 kd3 Historical: - Allergies: 05:58 PENICILLINS; kd3 - PMHx: 05:58 Anxiety; Asthma; Seizures; kd3 - PSHx: 05:58 hernia; kd3 - Immunization history:: Adult Immunizations up to date. - Social history:: Smoking status: Patient reports the use of cigarette tobacco products, 2 a day . - Family history:: not pertinent. Screenin:[address] [facility] ED Fall Risk Assessment (Adult) History of falling in the last 3 months, vc1 including since admission No falls in past 3 months (0 pts) Confusion or Disorientation No (0 pts) Intoxicated or Sedated No (0 pts) Impaired Gait No (0 pts) Mobility Assist Device Used No (0 pt) Altered Elimination No (0 pt) Score/Fall Risk Level 0 - 2 = Low Risk Oriented to surroundings, Maintained a safe environment, Educated pt \T\ family on fall prevention, incl call for assistance when getting out of bed. Abuse screen: Denies threats or abuse. Nutritional screening: No deficits noted. Tuberculosis screening: No symptoms or risk factors identified. Assessment: 06:22 Reassessment: pt to be discharged after shot time can leave at 0636. vc1 Vital Signs: 05:57 BP 139 / 93; Pulse 72; Resp 16; Temp 98.2(O); Pulse Ox 100% on R/A; Weight 84.37 kg; kd3 Height 5 ft. 4 in. ; 05:57 Body Mass Index 31.93 (84.37 kg, 162.56 cm) kd3 ED Course: 05:48 Patient arrived in ED. ja2 05:58 Triage completed. kd3 05:58 Arm band placed on right wrist. kd3 05:59 Moreno Sanchez MD is Attending Physician. sp4 06:21 No provider procedures requiring assistance completed. Patient did not have IV access vc1 during this emergency room visit. 06:22 Patient has correct armband on for positive identification. Bed in low position. vc1 Administered Medications: 06:20 Drug: Rocephin (cefTRIAXone) IM 1 grams Route: IM; Site: right vastus lateralis; vc1 06:37 Follow up: Response: No adverse reaction; Marked relief of symptoms vc1 06:20 Drug: Ketorolac IM 60 mg Route: IM; Site: left vastus lateralis; vc1 06:37 Follow up: Response: No adverse reaction; Marked relief of symptoms vc1 06:20 Drug: Acetaminophen PO 1000 mg Route: PO; vc1 06:37 Follow up: Response: No adverse reaction vc1 Medication: 06:22 VIS not applicable for this client. vc1 Outcome: 06:20 Discharge ordered by . sp4 06:37 Discharged to home ambulatory. vc1 06:37 Condition: good 06:37 Discharge instructions given to patient, Instructed on discharge instructions, follow up and referral plans. medication usage, Demonstrated understanding of instructions, follow-up care, medications, Prescriptions given X 3. 06:37 Patient left the ED. vc1 Signatures: Aileen Salvador ja2 Laura Sims RN RN kd3 Alona Kwan RN RN vc1 Potepalov, Moreno, MD MD sp4
[2023-02-09] MEDS ORDERED: LIDOCAINE 1% MPF 2 ML AMPULE ONE (06:22)
[2023-02-09] MEDS ORDERED: KETOROLAC 30 MG/ML INJ ONE (06:22)
[2023-02-09] MEDS ORDERED: ACETAMINOPHEN 500 MG TAB ONE (06:22)
[2023-02-09] MEDS ORDERED: CEFTRIAXONE 1000 MG/VIAL ONE (06:22)
[2023-02-09 06:43] VITALS: BP 139/93; TEMP 98.2; O2SAT 100
== END 2023-02-09 06:37 | disposition home or self-care (01) ==
LOC: ER 05:47
DX: H60.8X1 Other otitis externa, right ear (principal); Z72.0 Tobacco use; Z88.0 Allergy status to penicillin
CPT/HCPCS: 96372; 99284; J0696

== ENCOUNTER 2023-02-17 12:06 | Emergency (ER) | payer OTHER ==
--- OUTSIDE RECORDS SUMMARY | 2023-02-17 12:11 | XMS REPORT | Continuity of Care Document ---
:1990 Author Organization [facility] t Address [address] [facility] [address] [place] [address] Care Team Providers Name Role Phone SARAHI SUÁREZ Primary Care Physician Unavailable SARAHI SUÁREZ Attending Clinician Unavailable Kamini Sarahi PASCUAL Attending Clinician [phone] Cassy Black Attending Clinician Cassy REAVES Attending Clinician Unavailable Mani Goff Attending Clinician MANI GOFF Attending Clinician Unavailable Doctor Unassigned, [place] Attending Clinician Unavailable Teto Márquez Attending Clinician TETO FLOWERS Attending Clinician Unavailable JAY GARCIA Attending Clinician Unavailable Vaccine, [facility] Attending Clinician Unavailable Humberto Mayo DO Attending Clinician HUMBERTO MAYO Attending Clinician Unavailable Lab, [facility] Attending Clinician Unavailable FORTINO DEJESUS Attending Clinician Unavailable Visit, [facility] Nurse Attending Clinician Unavailable John Leon Attending Clinician Unavailable NELSON RIVERA Admitting Clinician Unavailable Payers Payer Name Policy Type Policy Number Effective Date Expiration Date Sherlyn lovett [facility] [id number] 2022 STAR 00:00:00 Problems Condition Condition Condition Status Onset Resolution Last Treating Co mments Source Name Details Category Date Date Treatment Clinician Date GROIN PAIN GROIN Diagnosis Active 2021-082022-07-19 Memoria PAIN - 07:09:00 l Active 00:00: Walker 06/30/2022 00 [facility] Well woman Well woman Disease Active U [...] 2022-09-15 0 /d University of 00:00:00 00:00:00 [facility] Exposure to 2022-04-02 2022-04-12 Not sure [facility] SARS-CoV-2 00:00:00 10:56:00 [facility] (event) Branch Tobacco use and 2022-04-12 2022-04-12 User of smokeless Un iversity of exposure 00:00:00 00:00:00 tobacco [facility] Tobacco Comment 2022-04-12 2022-04-12 Vapes every day [facility] ersity of 00:00:00 00:00:00 [facility] Branch History of 2014-10-19 Cigarette Smoker Universi ty of tobacco use 00:00:00 [facility] Sex Ass[birth year] At [birth year] Universit y of 00:00:00 00:00:00 [facility] Smoking Status Start Date Stop Date Source Tobacco smoking status 2022-07-01 01:48:06 2022-07-01 01:48:06 [facility]ations Ordered Filled Start Stop Current Ordering [...] Branch daily. ALPRAZOLAM 0 Yes Take by [facility] ers ORAL 8-24 mouth. ity of 10:58: [address] ALPRAZOLAM Yes Take by [facility] ers ORAL 8-24 mouth. ity of 10:58: [address] ALPRAZOLAM Yes Take by [facility] ers ORAL 8-24 mouth. ity of 10:58: [place] 10 [facility] ALPRAZOLAM Yes Take by Univ ers ORAL 8-24 mouth. ity of 10:58: [place] 10 [facility] diphenhydrA 2020-08 Yes [id number] 25mg Take 1 Univers MINE 0-07 capsule by ity of (BENADRYL) 00:00: mouth [place] 25 mg 00 every 6 Medical capsule (six) Branch hours as needed for Itching or Allergies. diphenhydrA 2020-08 Yes [id number] 25mg Take 1 Univers MINE 0-07 capsule by ity of (BENADRYL) 00:00: mouth [place] 25 mg 00 every 6 Medical capsule (six) Branch hours as needed for Itching or Allergies. diphenhydrA 2020-08 Yes [id number] 25mg Take 1 Univers MINE 0-07 capsule by ity of (BENADRYL) 00:00: mouth [place] 25 mg 00 every 6 Medical capsule (six) Branch hours as needed for Itching or Allergies. diphenhydrA 2020-08 Yes [id number] 25mg Take 1 Univers MINE 0-07 capsule by ity of (BENADRYL) 00:00: mouth [place] 25 mg 00 every 6 Medical capsule (six) Branch hours as needed for Itching or Allergies. Immunizations Ordered Filled Immunization Date Status Comments [facility] e Immunization Name Name HPV9 2022-04-12 Completed University of 00:00:00 [facility] HPV9 2022-04-12 Completed University of 00:00:00 [facility] HPV9 2022-04-12 Completed University of 00:00:00 [facility] HPV9 2022-04-12 Completed University of 00:00:00 [facility] SARS-COV-2 COVID-19 2021-12-22 Completed Unive rsity of VALENTINO/J&J VACCINE 00:00:00 [facility] SARS-COV-2 COVID-19 2021-12-22 Completed Unive rsity of VALENTINO/J&J VACCINE 00:00:00 [facility] SARS-COV-2 COVID-19 2021-12-22 Completed Unive rsity of VALENTINO/J&J VACCINE 00:00:00 [facility] SARS-COV-2 COVID-19 2021-12-22 Completed Unive rsity of VALENTINO/J&J VACCINE 00:00:00 [facility] HPV 2016-08-10 Completed University of 00:00:00 [facility] HPV 2016-08-10 Completed University of 00:00: [facility] HPV 2016-08-10 Completed University of 00:00: [facility] HPV 2016-08-10 Completed University of 00:00:00 [facility] Influenza Virus 2016-06-15 Completed Universit y of Vaccine Quad IM 3+ 00:00:[address] [facility] TDAP 2016-06-15 Completed University of 00:00: [facility] Influenza Virus 2016-06-15 Completed Universit y of Vaccine Quad IM 3+ 00:00:[address] [facility] TDAP 2016-06-15 Completed University of 00:00: [facility] Influenza Virus 2016-06-15 Completed Universit y of Vaccine Quad IM 3+ 00:00:[address] [facility] TDAP 2016-06-15 Completed University of 00:00:00 [facility] Influenza Virus 2016-06-15 Completed Universit y of Vaccine Quad IM 3+ 00:00:[address] [facility] TDAP 2016-06-15 Completed University of 00:00:00 [facility] Influenza Virus 2016-01-11 Completed Universit y of Vaccine Quad IM 3+ 00:00:[address] [facility] Influenza Virus 2016-01-11 Completed Universit y of Vaccine Quad IM 3+ 00:00:[address] [facility] Influenza Virus 2016-01-11 Completed Universit y of Vaccine Quad IM 3+ 00:00:[address] [facility] Influenza Virus 2016-01-11 Completed Universit y of Vaccine Quad IM 3+ 00:00:[address] [facility] TDAP 2015-02-18 Completed University of 00:00:00 [facility] TDAP 2015-02-18 Completed University of 00:00:00 [facility] TDAP 2015-02-18 Completed University of 00:00:00 [facility] TDAP 2015-02-18 Completed University of 00:00:00 [facility] Influenza Virus 2014-08-31 Completed Universit y of Vaccine Quad IM 00:00:00 [place] [facility] ical Multi-dose 6+ MO Branch Influenza Virus 2014-08-31 Completed Universit y of Vaccine Quad IM 00:00:00 [place] [facility] ical Multi-dose 6+ MO Branch Influenza Virus 2014-08-31 Completed Universit y of Vaccine Quad IM 00:00:00 [place] [facility] ical Multi-dose 6+ MO Branch Influenza Virus 2014-08-31 Completed Universit y of Vaccine Quad IM 00:00:00 [place] [facility] ical Multi-dose 6+ MO Branch Vital Signs Vital Name Observation Time Observation Value Comments Source Systolic blood 2022-09-15 17:57:00 120 mm[Hg] Univer sity of pressure [facility] Diastolic blood 2022-09-15 17:57:00 99 mm[Hg] Unive rsity of pressure [facility] Heart rate 2022-09-15 17:57:00 94 /min Universi ty of [facility] Body temperature 2022-09-15 17:57:00 37.11 Josy [facility] ersity of [facility] Branch Respiratory rate 2022-09-15 17:57:00 18 /min Univ ersity of [facility] Body height 2022-09-15 17:57:00 162.6 cm Universi ty of [place] [facility] [place] Body weight 2022-09-15 17:57:00 79.833 kg Universi ty of [place] [facility] [place] BMI 2022-09-15 17:57:00 30.21 kg/m2 Universi ty of [place] [facility] [place] Oxygen saturation in 2022-09-15 17:57:00 100 /min [facility] Arterial blood by [facility] Pulse oximetry Branch Systolic blood 2022-04-12 15:56:00 131 mm[Hg] Univer sity of pressure [facility] Diastolic blood 2022-04-12 15:56:00 84 mm[Hg] Unive rsity of pressure [facility] Heart rate 2022-04-12 15:56:00 88 /min Universi ty of [place] [facility] [place] Body temperature 2022-04-12 15:56:00 36.56 Josy Univ ersity of [place] [facility] Respiratory rate 2022-04-12 15:56:00 18 /min Univ ersity of [place] [facility] Body height 2022-04-12 15:56:00 162.6 cm Universi ty [facility] [place] [facility] Body weight 2022-04-12 15:56:00 77.656 kg Universi ty [facility] [place] [facility] BMI 2022-04-12 15:56:00 29.39 kg/m2 [facility]i ty [facility] [place] [facility] Systolic (mm Hg) 2022-07-01 06:33:00 Grant Cardoso Diastolic (mm Hg) 2022-07-01 06:33:00 Mery beckymarcia Munozann Heart Rate 2022-07-01 06:33:00 Chrissie Munozann Height 2022-07-01 00:34:00 162.56 cm [facility] BMI Calculated 2022-07-01 00:34:00 Paulie Louis Weight 2022-07-01 00:34:00 Chrissie Munozann Temperature Oral (F) 2022-07-01 00:34:00 98.2 F [facility] Procedures Procedure Date / Time Performing Clinician Source Performed POCT TEST 2022-09-15 18:19:00 Cassy Reaves [facility] URINALYSIS 2022-09-15 18:13:00 Cassy Reaves [place] o f [facility] CONSENT/REFUSAL FOR 2022-09-15 17:48:27 Doctor [facility]igned, [facility] Name Medical Branch POCT TEST 2022-04-12 17:03:00 Sarahi Suárez [facility] GARDASIL 9 (HPV 9V) 2022-04-12 17:02:23 Sarahi Suárez [facility] VACCINE [facility] PROLACTIN 2022-04-12 16:51:00 Sarahi Su[facility]rez [facility] THYROID STIMULATING 2022-04-12 16:51:00 Sarahi Suárez [facility] HORMONE [facility] CBC WITH DIFF 2022-04-12 16:51:00 Sarahi Suárez [facility] GC & CHLAMYDIA 2022-04-12 16:51:00 Sarahi Suárez [facility] AMPLIFIED ASSAY [facility] HIV 1/2 AG-AB WITH 2022-04-12 16:51:00 Sarahi Suárez [facility] TRICHOMONAS AMPLIFIED 2022-04-12 16:51:00 [facility] GALV ONLY - SYPHILIS 2022-04-12 16:51:00 [facility] I[facility]IGM Medical Branch Encounters Start End Encounter Admission Attending Care Care Encounter Source Date/Time Date/Time Type Type Clinicians Facility Department ID 2023-04-12 2023-04-12 Outpatient R KAMINI, [facility] [id number] Univers 09:30:00 09:30:00 SARAHI barreto o arash [facility] 2022-09-20 2022-09-20 Outpatient R KAMINI, [facility] [id number] Univers 10:30:00 10:30:00 SARAHI barreto o arash [facility] 2022-09-16 2022-09-16 Refill Kamini, [facility] [id number] Univers 00:00:00 00:00:00 Sarahi Soto MAINTENANCE APPRENTICE [id number] ity [facility] [id number] [place] as MATERNAL [phone] Med ical & CHILD [address] [place] [address] 2022-09-15 2022-09-15 Emergency Cassy Reaves [facility] [id number] Univers 11:58:00 15:40:00 [facility] [id number] i ty [facility] [id number] [place] [id number] [address] 2022-09-15 2022-09-15 Emergency X Cassy REAVES [facility] ERT [id number] Univers 11:58:00 15:40:00 ity [facility] 2022-08-15 2022-08-15 Outpatient R KAMINI, [facility] [id number] Univers 10:00:00 10:00:00 SARAHI mary lou o f [facility] 2022-07-01 2022-07-01 Emergency [facility] [id number] Memoria 00:20:35 06:35:00 r Arg[place] 00 [facility] 2022-07-01 2022-07-01 Emergency [facility] [id number] Memoria 00:20:35 06:35:00 r Arg[place] 00 [facility] 2022-06-30 2022-07-01 Outpatient Mani Goff [facility] [id number] 18:20:35 00:35:00 [facility] 2022-06-30 2022-07-01 Emergency E FAN, MANI [facility] [id number] [facility] 18:20:00 00:35:00 2022-04-22 2022-04-22 Refill [facility] [id number] Univers 00:00:00 00:00:00 Sarahi C MAINTENANCE APPRENTICE [id number] ity of [facility] [id number] [place] as MATERNAL [phone] [facility] ical & CHILD [address] [place] [address] 2022-04-13 2022-04-13 Telephone [facility] [id number] [id number] Univers 00:00:00 00:00:00 Sarahi C MAINTENANCE APPRENTICE [id number] ity of [facility] [id number] [place] as MATERNAL [id number] [facility] [address] [place] [address] 2022-04-12 2022-04-12 Office [facility] [id number] Univers 10:30:00 11:58:19 Visit Sarahi Charles MAINTENANCE APPRENTICE [id number] ity of [facility] [id number] [place] as MATERNAL [id number] [facility] & [address] 2022-04-12 2022-04-12 Outpatient R AKINFORMERLY [facility], [facility] [id number] Univers 10:30:00 11:58:19 SARAHI ity o f [facility] 2022-04-12 2022-04-12 Outpatient R AKINFORMERLY [facility], [facility] [id number] Univers 10:30:00 10:30:00 SARAHI ity o f [facility] 2022-04-12 2022-04-12 Outpatient R AKINSIPE, [facility] [id number] Univers 08:15:00 08:15:00 SARAHI ity o f [facility] 2022-04-12 2022-04-12 Orders Doctor SIFUENTES [id number] [id number] Univers 00:00:00 00:00:00 Only Unassigned, ASH [id number] ity of [place] [facility] 4.2.7.2.686 [place] as [id number] [facility] [address] [place] 2022-03-30 2022-03-30 Telephone Lionel [facility] [id number] Univers 00:00:00 00:00:00 Teto Martin MAINTENANCE APPRENTICE [id number] ity [facility] [id number] [place] as MATERNAL [id number] [facility] ical & CHILD [address] [place] [address] 2022-03-16 2022-03-16 Outpatient R LIONEL [facility] [id number] Univers 08:45:00 08:45:00 TETO reyesy o f [facility] 2021-12-24 2021-12-24 Outpatient R RADHA [facility] [id number] Univers 17:00:00 17:00:00 [facility] 2021-12-22 2021-12-22 Imm/Inj Vaccine, [facility] Family Medicine [facility] 1.2.840.114 [id number] Univers 11:30:00 11:40:00 Visit Humberto Mayo [facility] 350.1.13 .10 [facility] [place].7.[place] [phone] Ar dical NAL [address] [place] [address] 2021-12-22 2021-12-22 Outpatient R MARIA ESTHER [facility] [id number] Univers 11:30:00 11:30:00 HUMBERTO itlauren [facility] 2021-12-19 2021-12-19 Outpatient R [facility] [id number] Univers 09:00:00 09:00:00 ity [facility] 2021-12-17 2021-12-17 Refill Akinalondra, [facility] [id number] Univers 00:00:00 00:00:00 Sarahi Soto MAINTENANCE APPRENTICE [id number] ity [facility] [id number] [place] as MATERNAL [id number] [facility] ical & CHILD [address] [place] [address] 2021-10-19 2021-10-19 Refill Akinalondra, [facility] [id number] Univers 00:00:00 00:00:00 Sarahi C MAINTENANCE APPRENTICE [id number] ity of REGIONAL 4.2.7.2.686 [place] as MATERNAL [id number] [facility] & [address] 2021-08-25 2021-08-25 Offensive Coordinator Lab, Ang-Rmchp [facility] 1.2.840. 114 [id number] Univers 13:00:00 13:53:39 Visit Teto Flowers MAINTENANCE APPRENTICE [id number] ity of REGIONAL [id number] [place] as MATERNAL [id number] [address] 2021-08-25 2021-08-25 Outpatient R LIONEL [facility] [id number] Univers 13:00:00 13:00:00 TETO barreto o f [facility] 2021-07-28 2021-07-28 Outpatient Veronica DEJESUS [facility] [id number] Univers 14:20:00 14:20:00 FORTINO barreto [facility] 2021-07-06 2021-07-06 [facility] 1.2.344.251 [id number] Univers 00:00:00 00:00:00 Sarahi C MAINTENANCE APPRENTICE [id number] ity of REGIONAL [id number] [place] as MATERNAL [id number] [address] 2021-07-04 2021-07-04 [facility] 1.2.948.930 [id number] Univers 00:00:00 00:00:00 Sarahi C MAINTENANCE APPRENTICE [id number] ity of REGIONAL [id number] [place] as MATERNAL [id number] [address] 2021-07-04 2021-07-04 Refill Akinsipe, [facility] [id number] Univers 00:00:00 00:00:00 Sarahi C MAINTENANCE APPRENTICE [id number] ity of REGIONAL [id number] [place] as MATERNAL [id number] [facility] [address] [place] [address] 2021-07-04 2021-07-04 Refill Akinsipe, [facility] [id number] Univers 00:00:00 00:00:00 Sarahi C MAINTENANCE APPRENTICE [id number] ity of REGIONAL [id number] [place] as MATERNAL [id number] [facility] [address] [place] [address] 2021-07-04 2021-07-04 Refill Akinsipe, [facility] 1.2.000.202 [id number] Univers 00:00:00 00:00:00 Sarahi C MAINTENANCE APPRENTICE [id number] ity of REGIONAL [id number] [place] as MATERNAL [id number] [facility] & CHILD [address] [place] [address] 2021-07-04 2021-07-04 Refill Akinsisusan, [facility] [id number] Univers 00:00:00 00:00:00 Sarahi C MAINTENANCE APPRENTICE 350.1.13.10 ity of REGIONAL [id number] [place] as MATERNAL [id number] [facility] & CHILD [address] [place] [address] 2021-05-26 2021-05-26 Nurse Visit, [facility] Nurse [facility] 1.2 .840.114 [id number] Univers 13:49:58 14:39:32 Visit Teto Flowers MAINTENANCE APPRENTICE [id number] ity of REGIONAL [id number] [place] as MATERNAL [id number] [facility] [address] [place] [address] 2021-05-26 2021-05-26 Outpatient Veronica FLOWESR [facility] [id number] Univers 13:30:00 13:30:00 TETO antoine [facility] 2021-05-26 2021-05-26 Outpatient Veronica FLOWERS [facility] [id number] Univers 09:30:00 09:30:00 TETO antoine [facility] 2021-05-26 2021-05-26 Telephone [facility] 1.2.840.114 [id number] Univers 00:00:00 00:00:00 Sarahi C MAINTENANCE APPRENTICE 350.1.13.10 ity of REGIONAL 4.2.7.2.686 [place] as MATERNAL [id number] [facility] [address] [place] [address] 2021-05-24 2021-05-24 Telephone [facility] 1.2.840.114 [id number] Univers 00:00:00 00:00:00 Sarahi C MAINTENANCE APPRENTICE 350.1.13.10 ity of REGIONAL 4.2.7.2.686 [place] as MATERNAL [id number] [facility] [address] [place] [address] 2021-05-23 2021-05-23 Offensive Coordinator Lab, [facility] 1.2.840. 114 [id number] Univers 13:07:50 13:22:50 Visit Teto Flowers MAINTENANCE APPRENTICE 350.1.13.10 ity of [facility] 4.2.7.2.686 [place] as MATERNAL [id number] [facility] [address] [place] [address] 2021-05-23 2021-05-23 Outpatient R [facility] [id number] Univers 13:00:00 13:00:00 ity of [facility] 2021-05-10 2021-05-10 [id number] Univers 13:15:00 13:15:00 SHANICEJASON barreto o f [facility] 2021-03-18 2021-03-18 Emergency EM Edward, HCAMN LOPEZ [id number] [facility] 18:12:00 20:50:[address] [place] [address] 2021-03-17 2021-03-17 Office Lionel [facility] 1.2.840.114 [id number] Univers 07:52:09 08:49:51 Visit Teto Martin MAINTENANCE APPRENTICE 350.1.13.10 ity of [facility] [id number] [place] as MATERNAL [id number] [facility] [address] [place] [address] 2021-03-17 2021-03-17 Office Lionel [facility] 1.2.840.114 [id number] 07:52:09 08:49:51 Visit Teto Martin MAINTENANCE APPRENTICE 350.1.13.10 REGIONAL 4.2.7.2.686 MATERNAL [id number] & CHILD [address] [place] [address] 2021-03-17 2021-03-17 Outpatient Veronica FLOWERS [facility] [id number] Univers 07:45:00 07:45:00 TETO itlauren o arash [facility] 2021-02-11 2021-02-11 Telephone [facility] 1.2.840.114 [id number] Univers 00:00:00 00:00:00 Sarahi C MAINTENANCE APPRENTICE [id number] ity of REGIONAL [id number] [place] as MATERNAL [id number] [address] 2021-02-08 2021-02-08 Nurse Visit, [facility] Nurse [facility] 1.2 .840.114 [id number] Univers 13:00:59 13:33:34 Visit Sarahi Suárez MAINTENANCE APPRENTICE 350.1.13. 10 ity of REGIONAL [id number] [place] as MATERNAL [id number] [address] 2021-02-08 2021-02-08 [facility] [id number] Univers 10:30:00 10:30:00 SARAHI antoine [facility] 2021-02-07 2021-02-07 Telephone [facility] 1.2.840.114 [id number] Univers 00:00:00 00:00:00 Sarahi C MAINTENANCE APPRENTICE 350.1.13.10 ity of REGIONAL 4.2.7.2.686 [place] as MATERNAL [id number] [facility] & CHILD [address] [place] [address] 2021-02-02 2021-02-02 [facility]phone [facility] 1.2.840.114 [id number] Univers 00:00:00 00:00:00 Sarahi C MAINTENANCE APPRENTICE 350.1.13.10 ity of REGIONAL 4.2.7.2.686 [place] as MATERNAL [id number] Med ical & CHILD [address] [place] [address] 2021-02-01 2021-02-01 Telephone Kamini [facility] 1.2.840.114 [id number] Univers 00:00:00 00:00:00 Sarahi Soto MAINTENANCE APPRENTICE 350.1.13.10 ity of REGIONAL [id number] [place] as MATERNAL [phone] [facility] ical & CHILD [address] [place] [address] 2021-01-31 2021-01-31 Office Sarahi Suárez [facility] 1.2.8 [id number] Univers 10:03:04 11:18:52 Visit Teto Flowers MAINTENANCE APPRENTICE 350.1.13.10 ity of REGIONAL [id number] [place] as MATERNAL [id number] [facility] ical & CHILD [address] [place] [address] 2021-01-31 2021-01-31 Outpatient R LIONEL ALSUPRIYA [facility] [id number] Univers 10:45:00 10:45:00 TETO barreto o f [facility] 2021-01-31 2021-01-31 Orders Doctor MARIA 1.2.840.114 [id number] Univers 00:00:00 00:00:00 Only Unassigned, ASH 350.1.13.10 ity of [place] [facility] 4.2.7.2.686 [place] as [id number] [address] 2021-01-18 2021-01-18 Orders Doctor MARIA 1.2.840.114 [id number] Univers 00:00:00 00:00:00 Only Unassigned, ASH 350.1.13.10 ity of [place] [facility] 4.2.7.2.686 [place] as [id number] [address] 2020-01-02 2020-01-02 Patient Doctor [facility] 1.2.840.114 [id number] Univers 00:00:00 00:00:00 Secure Msg Unassigned, MAINTENANCE APPRENTICE 350.1.13.10 [facility] of [place] [facility] 4.2.7.2.686 [place] as MATERNAL [phone] [facility] ical & CHILD [address] [place] [address] 2020-01-01 2020-01-01 Refill Doctor UNIVERSIT [id number] Univers 00:00:00 00:00:00 Unassigned, Y HEALTH 350.1.13.10 [place] [phone] [facility] [address] 2020-01-01 2020-01-01 Refill Doctor UNIVERSIT [id number] Univers 00:00:00 00:00:00 Unassigned, Y HEALTH 350.1.13.10 [place] [phone] [facility] [address] 2020-01-01 2020-01-01 Patient Doctor MARIA [id number] Univers 00:00:00 00:00:00 Secure Msg Unassigned, ASH 350.1.13.10 [facility] of [place] [facility] 4.2.7.2.686 [place] as [phone] [facility] [address] Results Test Description Test Time Test Comments Results Result Comments Source POCT TEST 2022-09-15 18:19:00 Test Item Value Reference Range Interpretation Comme nts POCT PREG (test code = 1605) negative On board controls acceptable with C Line (test code = 3574) present POCT PREG LOT # (test code = 3575) [id number] POCT PREG TEST DATE (test code = 3576) 11/18/2023 Lab Interpretation (test code = 86214-2) [facility] Test Item Value Reference Range Interpretation Comments Chloride Lvl (test code = Chloride Lvl) 102 95-109 [facility] CenterIuhggrrYHUCEJRZR1376-03-20 02:36:00 Test Item Value Reference Range Interpretation Comments CO2 (test code = CO2) 31 24-32 [facility] CenterEuqfukzNXJSBMZDJ0904-11-31 02:36:00 Test Item Value Reference Range Interpretation Comments Calcium Lvl (test code = Calcium Lvl) 9.4 8.5-10.5 [facility] CenterLkmnzxhSNOBEHZOE1345-09-19 02:36:00 Test Item Value Reference Range Interpretation Comments AGAP (test code = AGAP) 11.6 10.0-20.0 [facility] CenterHntimllNLTRQHPNX2337-88-72 02:36:00 Test Item Value Reference Range Interpretation Comments eGFR (test code = eGFR) 74 [facility] CampusXinyfywFSVBRBTKGB4333-92-17 02:36:00 Test Item Value Reference Range Interpretation Comments WBC X 10x3 (test code = WBC X 10x3) 10.3 3.7-10.4 [facility] CampusTcteaqsTKRIKOBQIA5318-51-50 02:36:00 Test Item Value Reference Range Interpretation Comments RBC X 10x6 (test code = RBC X 10x6) 5.14 4.20-5.40 [facility] CenterXtvutnzYXFLOFLRO0346-00-75 02:36:00 Test Item Value Reference Range Interpretation Comments Sodium Lvl (test code = Sodium Lvl) 141 135-145 [facility] CenterFqnuateKKDXRMBRA5266-63-44 02:36:00 Test Item Value Reference Range Interpretation Comments Potassium Lvl (test code = Potassium 3.6 3.5-5.1 Lvl) [facility] CampusAmvqroaOBUTHYVCOC1058-90-10 02:36:00 Test Item Value Reference Range Interpretation Comments Hgb (test code = Hgb) 16.0 12.0-16.0 [facility] CenterXvsmexmKXMIPPKQT4564-05-63 02:36:00 Test Item Value Reference Range Interpretation Comments Chloride Lvl (test code = Chloride Lvl) 102 95-109 [facility] CenterDosmtadSIBEQYNLP2864-74-87 02:36:00 Test Item Value Reference Range Interpretation Comments CO2 (test code = CO2) 31 24-32 [facility] CenterWnjbvxnIWFPLKCMH6001-20-61 02:36:00 Test Item Value Reference Range Interpretation Comments Calcium Lvl (test code = Calcium Lvl) 9.4 8.5-10.5 [facility] CenterQmdbrajFBBLKYHYB9585-53-98 02:36:00 Test Item Value Reference Range Interpretation Comments AGAP (test code = AGAP) 11.6 10.0-20.0 [place] 695572-11-12 02:36:00 Test Item Value Reference Range Interpretation Comments eGFR (test code = eGFR) 74 [facility] CampusUtferskWKNPYTDTLQ0357-92-96 02:36:00 Test Item Value Reference Range Interpretation Comments WBC X 10x3 (test code = WBC X 10x3) 10.3 3.7-10.4 [facility] CampusQqemzvwLMJDHTJREB3398-20-65 02:36:00 Test Item Value Reference Range Interpretation Comments RBC X 10x6 (test code = RBC X 10x6) 5.14 4.20-5.40 [place] 800372-11-12 02:36:00 Test Item Value Reference Range Interpretation Comments Hgb (test code = Hgb) 16.0 12.0-16.0 [place] 800372-11-12 02:36:00 Test Item Value Reference Range Interpretation Comments Hct (test code = Hct) 46.6 36.0-48.0 [facility] CampusLkhbwqvGUDACWHQEN4558-08-54 02:36:00 Test Item Value Reference Range Interpretation Comments MCV (test code = MCV) 90.8 80.0-98.0 [facility] CampusMedxucqUGQRPVXNDH8007-98-89 02:36:00 Test Item Value Reference Range Interpretation Comments Hct (test code = Hct) 46.6 36.0-48.0 [facility] CampusMxiargiVFGLJUHBQV3883-87-04 02:36:00 Test Item Value Reference Range Interpretation Comments MCH (test code = MCH) 31.2 pg 27.0-31.0 [place] 800372-11-12 02:36:00 Test Item Value Reference Range Interpretation Comments MCHC (test code = MCHC) 34.3 32.0-36.0 [facility] CampusBpevztbRSJOAZNGRE8568-06-32 02:36:00 Test Item Value Reference Range Interpretation Comments RDW (test code = RDW) 13.5 11.5-14.5 [place] 800372-11-12 02:36:00 Test Item Value Reference Range Interpretation Comments Platelet (test code = Platelet) 258 133-450 [place] 800372-11-12 02:36:00 Test Item Value Reference Range Interpretation Comments MPV (test code = MPV) 8.2 7.4-10.4 [place] [address]-11-12 02:36:00 Test Item Value Reference Range Interpretation Comments Segs (test code = Segs) 48.9 45.0-75.0 [place] [address]-11-12 02:36:00 Test Item Value Reference Range Interpretation Comments Lymphocytes (test code = Lymphocytes) 41.7 20.0-40.0 [place] 800372-11-12 02:36:00 Test Item Value Reference Range Interpretation Comments Monocytes (test code = Monocytes) 6.0 2.0-12.0 [place] [address]-11-12 02:36:00 Test Item Value Reference Range Interpretation Comments Eosinophils (test code = 2.3 See_Comment [A utomated message] The Eosinophils) system which ge nerated this result tra nsmitted reference range : <=4.0. The reference r jeevan was not used to int erpret this result as normal/abnormal . [place] [address]-11-12 02:36:00 Test Item Value Reference Range Interpretation Comments Basophils (test code = 1.1 See_Comment [Aut omated message] The Basophils) system which ge nerated this result tra nsmitted reference range : <=1.0. The reference r jeevan was not used to int erpret this result as normal/abnormal . [place] [address]-11-12 02:36:00 Test Item Value Reference Range Interpretation Comments MCV (test code = MCV) 90.8 80.0-98.0 [place] [address]-11-12 02:36:00 Test Item Value Reference Range Interpretation Comments Neutrophils # (test code = Neutrophils 5.0 1.5-8.1 #) [place] [address]-11-12 02:36:00 Test Item Value Reference Range Interpretation Comments Lymphocytes # (test code = Lymphocytes 4.3 1.0-5.5 #) [place] [address]-11-12 02:36:00 Test Item Value Reference Range Interpretation Comments Monocytes # (test code 0.6 See_Comment [Aut omated message] The = Monocytes #) system which generated this result tra nsmitted reference range : <=0.8. The reference r jeevan was not used to int erpret this result as normal/abnormal . [place] [address]-11-12 02:36:00 Test Item Value Reference Range Interpretation Comments Eosinophils # (test code 0.2 See_Comment [A utomated message] The = Eosinophils #) system whic h generated this result tra nsmitted reference range : <=0.5. The reference r jeevan was not used to int erpret this result as normal/abnormal . [place] [address]-11-12 02:36:00 Test Item Value Reference Range Interpretation Comments Basophils # (test code 0.1 See_Comment [Aut omated message] The = Basophils #) system which generated this result tra nsmitted reference range : <=0.2. The reference r jeevan was not used to int erpret this result as normal/abnormal . [facility] CenterXukouaxDIAMOKQHB8277-91-20 02:36:00 Test Item Value Reference Range Interpretation Comments hCG Tot (test code = hCG Tot) no gt [facility] CenterSishvvqRZIOLUNKB9523-08-87 02:36:00 Test Item Value Reference Range Interpretation Comments Glucose Lvl (test code = Glucose Lvl) 96 70-99 [facility] CenterUkpbmhdXRSRAJJFV5216-39-32 02:36:00 Test Item Value Reference Range Interpretation Comments BUN (test code = BUN) 13 7-22 [facility] CenterIjyjklbOHDJVEBVR5827-83-49 02:36:00 Test Item Value Reference Range Interpretation Comments Creatinine Lvl (test code = Creatinine 1.05 0.50-1.40 Lvl) [facility] CampusOdrjuatMXLODEFBFL6737-28-42 02:36:00 Test Item Value Reference Range Interpretation Comments MCH (test code = MCH) 31.2 pg 27.0-31.0 [facility] CampusVcjezffQWLUZJYWRV7898-09-13 02:36:00 Test Item Value Reference Range Interpretation Comments MCHC (test code = MCHC) 34.3 32.0-36.0 [facility] CampusMwxvhnpDTPYUYTKZB3199-58-18 02:36:00 Test Item Value Reference Range Interpretation Comments RDW (test code = RDW) 13.5 11.5-14.5 [facility] CampusSfirbagHYBNBMDIAW7552-98-09 02:36:00 Test Item Value Reference Range Interpretation Comments Platelet (test code = Platelet) 258 133-450 [facility] CampusXfipgqiOGAASBBKGG8802-98-68 02:36:00 Test Item Value Reference Range Interpretation Comments MPV (test code = MPV) 8.2 7.4-10.4 [place] 800372-11-12 02:36:00 Test Item Value Reference Range Interpretation Comments Segs (test code = Segs) 48.9 45.0-75.0 [place] 800372-11-12 02:36:00 Test Item Value Reference Range Interpretation Comments Lymphocytes (test code = Lymphocytes) 41.7 20.0-40.0 [facility] CampusEokhwmhWXCXNQWJWP7208-49-06 02:36:00 Test Item Value Reference Range Interpretation Comments Monocytes (test code = Monocytes) 6.0 2.0-12.0 [address]11-12 02:36:00 Test Item Value Reference Range Interpretation Comments Eosinophils (test code = 2.3 See_Comment [A utomated message] The Eosinophils) system which ge nerated this result tra nsmitted reference range : <=4.0. The reference r jeevan was not used to int erpret this result as normal/abnormal . [address]11-12 02:36:00 Test Item Value Reference Range Interpretation Comments Basophils (test code = 1.1 See_Comment [Aut omated message] The Basophils) system which ge nerated this result tra nsmitted reference range : <=1.0. The reference r jeevan was not used to int erpret this result as normal/abnormal . [address]11-12 02:36:00 Test Item Value Reference Range Interpretation Comments Neutrophils # (test code = Neutrophils 5.0 1.5-8.1 #) [address]11-12 02:36:00 Test Item Value Reference Range Interpretation Comments Lymphocytes # (test code = Lymphocytes 4.3 1.0-5.5 #) [place] [address]-11-12 02:36:00 Test Item Value Reference Range Interpretation Comments Monocytes # (test code 0.6 See_Comment [Aut omated message] The = Monocytes #) system which generated this result tra nsmitted reference range : <=0.8. The reference r jeevan was not used to int erpret this result as normal/abnormal . [place] [address]-11-12 02:36:00 Test Item Value Reference Range Interpretation Comments Eosinophils # (test code 0.2 See_Comment [A utomated message] The = Eosinophils #) system whic h generated this result tra nsmitted reference range : <=0.5. The reference r jeevan was not used to int erpret this result as normal/abnormal . [place] [address]-11-12 02:36:00 Test Item Value Reference Range Interpretation Comments Basophils # (test code 0.1 See_Comment [Aut omated message] The = Basophils #) system which generated this result tra nsmitted reference range : <=0.2. The reference r jeevan was not used to int erpret this result as normal/abnormal . [facility] CenterRjcurtvMHMHZOJWM2706-35-46 02:36:00 Test Item Value Reference Range Interpretation Comments hCG Tot (test code = hCG Tot) no gt [facility] CenterPmhvkynGXJVSNZUZ6542-61-15 02:36:00 Test Item Value Reference Range Interpretation Comments Glucose Lvl (test code = Glucose Lvl) 96 70-99 [facility] CenterYfnsuxzULQTQZMXP0274-23-79 02:36:00 Test Item Value Reference Range Interpretation Comments BUN (test code = BUN) 13 7-22 [facility] CenterMywaarbSDNYYJIRT7076-11-29 02:36:00 Test Item Value Reference Range Interpretation Comments Creatinine Lvl (test code = Creatinine 1.05 0.50-1.40 Lvl) [facility] CenterNeskddzENMDMUQXF9505-92-79 02:36:00 Test Item Value Reference Range Interpretation Comments Sodium Lvl (test code = Sodium Lvl) 141 135-145 [facility] CenterDskxdidSYJKZCBAQ3807-37-15 02:36:00 Test Item Value Reference Range Interpretation Comments Potassium Lvl (test code = Potassium 3.6 3.5-5.1 Lvl) [facility] CenterOpotdjfVMNDTJSFS4847-45-68 02:36:00 Test Item Value Reference Range Interpretation Comments hCG Tot (test code = hCG Tot) no gt [facility] CenterBstzrmwTIIJQLGTX3021-32-45 02:36:00 Test Item Value Reference Range Interpretation Comments Chloride Lvl (test code = Chloride Lvl) 102 95-109 [facility] CenterSettnbzSFEHRGABV6390-94-20 02:36:00 Test Item Value Reference Range Interpretation Comments CO2 (test code = CO2) 31 24-32 [facility] CenterJtkwsgiPJJAMOELS2397-86-41 02:36:00 Test Item Value Reference Range Interpretation Comments Calcium Lvl (test code = Calcium Lvl) 9.4 8.5-10.5 [facility] CenterDazmbklDWGVOZIAD4261-31-86 02:36:00 Test Item Value Reference Range Interpretation Comments AGAP (test code = AGAP) 11.6 10.0-20.0 [place] 695572-11-12 02:36:00 Test Item Value Reference Range Interpretation Comments eGFR (test code = eGFR) 74 [facility] CampusXxnbmsdJHIRWKQJIR6584-94-31 02:36:00 Test Item Value Reference Range Interpretation Comments WBC X 10x3 (test code = WBC X 10x3) 10.3 3.7-10.4 [place] [address]-11-12 02:36:00 Test Item Value Reference Range Interpretation Comments RBC X 10x6 (test code = RBC X 10x6) 5.14 4.20-5.40 [place] [address]-11-12 02:36:00 Test Item Value Reference Range Interpretation Comments Hgb (test code = Hgb) 16.0 12.0-16.0 [place] [address]-11-12 02:36:00 Test Item Value Reference Range Interpretation Comments Hct (test code = Hct) 46.6 36.0-48.0 [place] [address]-11-12 02:36:00 Test Item Value Reference Range Interpretation Comments MCV (test code = MCV) 90.8 80.0-98.0 [place] 695572-11-12 02:36:00 Test Item Value Reference Range Interpretation Comments Glucose Lvl (test code = Glucose Lvl) 96 70-99 [facility] CampusBnprpwgBIZTGDBTEG9108-06-34 02:36:00 Test Item Value Reference Range Interpretation Comments MCH (test code = MCH) 31.2 pg 27.0-31.0 [place] 800372-11-12 02:36:00 Test Item Value Reference Range Interpretation Comments MCHC (test code = MCHC) 34.3 32.0-36.0 [place] 800372-11-12 02:36:00 Test Item Value Reference Range Interpretation Comments RDW (test code = RDW) 13.5 11.5-14.5 [place] 800372-11-12 02:36:00 Test Item Value Reference Range Interpretation Comments Platelet (test code = Platelet) 258 133-450 [place] 800372-11-12 02:36:00 Test Item Value Reference Range Interpretation Comments MPV (test code = MPV) 8.2 7.4-10.4 [place] 800372-11-12 02:36:00 Test Item Value Reference Range Interpretation Comments Segs (test code = Segs) 48.9 45.0-75.0 [place] 800372-11-12 02:36:00 Test Item Value Reference Range Interpretation Comments Lymphocytes (test code = Lymphocytes) 41.7 20.0-40.0 [place] [address]-11-12 02:36:00 Test Item Value Reference Range Interpretation Comments Monocytes (test code = Monocytes) 6.0 2.0-12.0 [place] 800372-11-12 02:36:00 Test Item Value Reference Range Interpretation Comments Eosinophils (test code = 2.3 See_Comment [A utomated message] The Eosinophils) system which ge nerated this result tra nsmitted reference range : <=4.0. The reference r jeevan was not used to int erpret this result as normal/abnormal . [place] [address]-11-12 02:36:00 Test Item Value Reference Range Interpretation Comments Basophils (test code = 1.1 See_Comment [Aut omated message] The Basophils) system which ge nerated this result tra nsmitted reference range : <=1.0. The reference r jeevan was not used to int erpret this result as normal/abnormal . [place] 695572-11-12 02:36:00 Test Item Value Reference Range Interpretation Comments BUN (test code = BUN) 13 03-10 [place] [address]-11-12 02:36:00 Test Item Value Reference Range Interpretation Comments Neutrophils # (test code = Neutrophils 5.0 1.5-8.1 #) [place] [address]-11-12 02:36:00 Test Item Value Reference Range Interpretation Comments Potassium Lvl (test code = Potassium 3.6 3.5-5.1 Lvl) [place] 800372-11-12 02:36:00 Test Item Value Reference Range Interpretation Comments Lymphocytes # (test code = Lymphocytes 4.3 1.0-5.5 #) [place] [address]-11-12 02:36:00 Test Item Value Reference Range Interpretation Comments Monocytes # (test code 0.6 See_Comment [Aut omated message] The = Monocytes #) system which generated this result tra nsmitted reference range : <=0.8. The reference r jeevan was not used to int erpret this result as normal/abnormal . [place] 800372-11-12 02:36:00 Test Item Value Reference Range Interpretation Comments Eosinophils # (test code 0.2 See_Comment [A utomated message] The = Eosinophils #) system whic h generated this result tra nsmitted reference range : <=0.5. The reference r jeevan was not used to int erpret this result as normal/abnormal . [facility]XfxxipuOQNNYCOTYO7738-[facility]-16 02:36:00 Test Item Value Reference Range Interpretation Comments Basophils # (test code 0.1 See_Comment [Aut omated message] The = Basophils #) system which generated this result tra nsmitted reference range : <=0.2. The reference r jeevan was not used to int erpret this result as normal/abnormal . [facility] HospitalCqmjfjuVRQAGCGQK3272-31-71 02:36:00 Test Item Value Reference Range Interpretation Comments Creatinine Lvl (test code = Creatinine 1.05 0.50-1.40 Lvl) [facility] CenterTecytnpGWGMLRXOA7121-64-59 02:36:00 Test Item Value Reference Range Interpretation Comments Sodium Lvl (test code = Sodium Lvl) 141 135-145 [facility] ONLY - SYPHILIS IGG/XFL5400-22-16 16:28:03 Test Item Value Reference Range Interpretation Comments Syphilis IgG/IgM (test Non-reactive Non-reactive code = 26771-6) LUIS (test code = LUIS) Non-reactive - No serologic evidence of T. pallidum infection. Cannot exclude incubating or early syphilis. Submit a second specimen in 2-4 weeks if syphilis is clinically suspected. Equivocal - Further testing to follow. Reactive - Further testing to follow. Lab Interpretation (test Normal code = 56302-8) [facility] DFHNFZT5612-97-14 08:58:39 Test Item Value Reference Range Interpretation Comments TSH (test code = See_Comment [Automated message] [id number]) The system [employer] generated this result transmitted ref erence range: 0.45 - 4 .70 mIU/L. The refe rence range was not u sed to interpret this result as normal/abnor mal. Lab Interpretation (test Normal code = 82923-7) [facility]PROL[facility]IN2022-[facility] 07:21:35 Test Item Value Reference Range Interpretation Comments PROLACTIN (test code = 0939109853) 6.5 ng/mL 3.3-26.7 Lab Interpretation (test code = Normal 16089-3) [facility] HospitalHI 1/2 AG-AB WITH [id number] 05:39:11 Test Item Value Reference Range Interpretation Comments HIV Negative Negative Semi-quantitative (test code = 56577-1) LUIS (test code = Non-reactive for HIV-1 LUIS) antigen and HIV-1/HIV-2 antibodies. ?No laboratory evidence of HIV infection. ?Repeat in 2-4 weeks if acute HIV infection is suspected. [facility] HospitalCBC WITH [id number] 04:01:22 Test Item Value Reference Range Interpretation Comments WBC (test code = See_Comment [Automated 6690-2) message] The sy stem which generated this result transmitted reference range : 4.30 - 11.10 10*3/?L. The reference range was not used to interpret this result as normal/abnormal . RBC (test code = See_Comment H [Automated 789-8) message] The sy stem which generated this [...] RDW-SD (test code = 42.9 fL 39-49.9 01493-5) RDW-CV (test code = 13.2 % 12-15.5 788-0) PLT (test code = See_Comment [Automated 777-3) message] The sy stem which generated this result transmitted reference range : 166 - 358 10*3/ ?L. The reference r jeevan was not used to interpret this result as normal/abnormal . MPV (test code = 10.3 fL 9.5-12.9 25341-2) NRBC/100 WBC (test See_Comment [Automat ed code = 0405218961) message] The system which generated this result transmitted reference range : 0.0 - 10.0 /100 WBCs. The refer ence range was not u sed to interpret th is result as normal/abnormal . NRBC x10^3 (test code See_Comment [Auto mated = 8732467807) message] The s ystem which generated this result transmitted reference range : 10*3/?L. The reference range was not used to interpret this result as normal/abnormal . GRAN MAT (NEUT) % 48.7 % (test code = 770-8) IMM GRAN % (test code 0.30 % = 6887518685) LYMPH % (test code = 41.2 % 736-9) MONO % (test code = 6.8 % 5905-5) EOS % (test code = 2.4 % 713-8) BASO % (test code = 0.6 % 706-2) GRAN MAT x10^3(ANC) 4.25 10*3/uL 1.88-7.09 (test code = 2275120753) IMM GRAN x10^3 (test 0.03 10*3/uL 0-0.06 code = 3402349709) LYMPH x10^3 (test code 3.60 10*3/uL 1.32-3.29 H = 731-0) MONO x10^3 (test code 0.59 10*3/uL 0.33-0.92 = 742-7) EOS x10^3 (test code = 0.21 10*3/uL 0.03-0.39 711-2) BASO x10^3 (test code 0.05 10*3/uL 0.01-0.07 = 704-7) Lab Interpretation Abnormal (test code = 23458-4) [facility] HospitalPOCT [id number] 17:03:00 Test Item Value Reference Range Interpretation Comments POCT PREG (test code = 1605) Negative On board controls acceptable with C Yes Line (test code = 3574) POCT PREG LOT # (test code = 3575) POCT PREG TEST DATE (test code = 3576) [facility] HospitalHCG SERUM [id number] 19:15:00 Test Item Value Reference Range Interpretation Comments HCG SERUM QUAL (test code = HCGQL) NEGATIVE NEGATIVE BASIC METABOLIC [id number] 19:12:00 Test Item Value Reference Range Interpretation [...] CA) 8.1 mg/dl 8.0-10.5 N CBC W/AUTO [id number] 19:05:00 Test Item Value Reference Range Interpretation [...] 0.00-0.01 N NRBC#) - CT HEAD/BRAIN W/O [id number] 19:04:00 [facility] 1990 Sex: F FAX: John Livingston MD [place]: St: REG Name: FATOU OJEDA [facility] : 1990 Age/S: 30/F [address] Unit: [id number] Loc: [address] [place]: [place] [address] Acct: [id number] Date: Status: REG ER PHONE #: [phone] Exam Date: 03/18/2021 6856 FAX #: [phone] Reason: Seizure EXAMS: CPT CODE: [id number] CT HEAD/BRAIN W/O CONT [id number] Location: CT head, 03/18/21 COMPARISON EXAMS:None of the brain TECHNIQUE: CT examination of the brain was performed without contraston a helical scanner. Scanning conducted from skull base to vertex in the axial plane acquiring contiguous 5mm slice thickness . The examination was performed on a [facility] at helical CT scanner utilizing low-dose radiation [...] S: 03/18/2021 (7 PAGE 1 Signed Report Notes Date/Time Note Provider Source 2021-03-18 18:21:00-00:00 [facility] ([facility]) EMERGENCY PROVIDER REPORT REPORT#:[id number] REPORT STATUS: Signed DATE:03/18/21 TIME: 1820 PATIENT: FATOU OJEDA UNIT #: [id number] ROOM/BED: AGE: 30 SEX: F PCP PHYS: Undefined Provider SERVICE AUTHOR: John Leon MD * ALL edits or amendments must be made on the el ideelironic/computer document * HPI-Seizure Free Text HPI Notes Free Text HPI Notes 30-year-old female reports history of epilepsy p resents here via EMS. The patient reports she was arrested yesterd ay. She reports while she was standing outside of the [employer] car she had a seizure. Patien t reports she did not fall. She reports she leaned over onto the car. Seizur e resolved on its own yesterday. [facility]. The sherry abdi reports paramedics showed up at the [facility] but di d not bring her to an ER. Patient was released from [facility] today. EMS was called at the [facility] t o come pick the patient up [...] Value NIHSS Applicable? No 0 Total 0 [place] Coma Score: Copyright Sir Ran Van Copyright [...] Diagnostics Lab Results Interpretation Results Laboratory Tests 03/18/21 1855: [Embedded Image Not Available] Laboratory Tests: 03/18 185 Chemistry Sodium (134.0 - 147.0 mmol/l) 142 [...] % (Auto) (23.0 - 38.0 %) 27.9 Bollinger % (Auto) (1.0 - 10.0 %) 8.6 Eos % (Auto) (1.0 - 5.0 %) 7.2 H Baso % (Auto) (0.0 - 1.0 %) 0.6 Neut # (Auto) (2.4 - 6.3 K/mm3) 7.0 H Lymph # (Auto) (1.2 - 4.0 K/mm3) 3.5 Bollinger # (Auto) (0.0 - 0.6 K/mm3) 1.1 H Eos # (Auto) (0.0 - 0.7 K/MM3) 0.9 H Baso # (Auto) (0.0 - 0.2 K/mm3) 0.1 Absolute Nucleated RBC (0.00 - 0.01 X10 3uL) 0 .00 Immature Gran % (0.0 - 0.4 %) [...] 78. No STEMI. No rmal axis. Normal OH interval. Normal QRS duration. Normal QTc interv [...] 03/18 Acetaminophen 1,000 MG X1ED STA 03/18 1843 CAN PO 03/18 1844 Levetiracetam 1,000 MG [...] HCl 4 MG X1ED PRN PRN 03/18 1845 DC IV 03/19 1844 Patient Discharge Departure Vital Signs/Condition Vital Signs [...] Instructions No driving for 3 months per [place] Law Do not operate heavy machinery Do [...] Departure Forms [facility] PCP LIST Discharge Note I have spoken [...] symptoms should prompt an immediate return to [facility] or the closest emergency department or a call to 911. Electronically Signed by John Leon MD on at 1309 RPT #:[id number] END OF REPORT
--- NOTE | 2023-02-17 12:34 | ER ---
Nurse's Notes [facility] Name: Meenakshi Ojeda Age: 32 yrs Sex: Female : 1990 Arrival Date: 02/17/2023 Time: 12:06 Bed IW3 Private MD: Diagnosis: Pediculosis, unspecified Presentation: 02/17 12:17 Chief complaint: Has lice, tried OTC medication without results. Coronavirus screen: At this time, the client does not indicate any symptoms associated with coronavirus-19. Ebola Screen: No symptoms or risks identified at this time. Initial Sepsis Screen: Does the patient meet any 2 criteria? No. Patient's initial sepsis screen is negative. Does the patient have a suspected source of infection? No. Patient's initial sepsis screen is negative. Risk Assessment: Do you want to hurt yourself or someone else? Patient reports no desire to harm self or others. Onset of symptoms was February 17, 2023. 12:17 Method Of Arrival: Ambulatory 12:17 Acuity: LUIS 4 hb Historical: - Allergies: 12:18 PENICILLINS; hb - Home Meds: 12:18 Keppra Oral [Active]; hb - PMHx: 12:18 Anxiety; Asthma; Seizures; hb - PSHx: 12:18 hernia; hb - Immunization history:: Adult Immunizations up to date. - Social history:: Smoking status: . Screenin:54 [facility] ED Fall Risk Assessment (Adult) Score/Fall Risk Level 0 - 2 = Low Risk ss Oriented to surroundings, Maintained a safe environment. Abuse screen: Denies threats or abuse. Denies injuries from another. Nutritional screening: No deficits noted. Tuberculosis screening: No symptoms or risk factors identified. Assessment: 12:54 General: Appears in no apparent distress. Behavior is calm, cooperative. Pain: Denies ss pain. Neuro: Level of Consciousness is awake, alert, obeys commands, Oriented to person, place, time, situation. Cardiovascular: Patient's skin is warm and dry. Respiratory: Respiratory effort is even, unlabored, Respiratory pattern is regular, symmetrical. ED Course: 12:08 Patient arrived in ED. rg4 12:10 Nic Murrieta PA is PHCP. roblesm 12:10 Marquis Plummer MD is Attending Physician. [facility] 12:18 Triage completed. 12:19 Arm band placed on. 12:54 Patient has correct armband on for positive identification. ss 12:54 No provider procedures requiring assistance completed. Patient did not have IV access ss during this emergency room visit. Administered Medications: No medications were administered Medication: 12:54 VIS not applicable for this client. ss Outcome: 12:34 Discharge ordered by MD. robles 12:54 Discharged to home ambulatory. ss 12:54 Condition: stable 12:54 Discharge instructions given to patient, Instructed on discharge instructions, follow up and referral plans. medication usage, Demonstrated understanding of instructions, follow-up care, medications, Prescriptions given X 1. 12:55 Patient left the ED. ss Signatures: Nic Murrieta PA PA jmm Blanchard, Shelby, RN RN Xin Prieto, CHRISS RN Joslyn Chen rg4
--- NOTE | 2023-02-17 12:35 | EDPHYS ---
Physician Documentation [facility] Name: Meenakshi Ojeda Age: 32 yrs Sex: Female : 1990 Arrival Date: 02/17/2023 Time: 12:06 Bed IW3 Private MD: ED Physician Marquis Plummer HPI: 02/17 12:15 This 32 yrs old Female presents to ER via Ambulatory with complaints of Lice. jmm 12:15 Patient complains of lice resistant to outpatient therapy. . jmm Historical: - Allergies: 12:18 PENICILLINS; hb - Home Meds: 12:18 Keppra Oral [Active]; hb - PMHx: 12:18 Anxiety; Asthma; Seizures; hb - PSHx: 12:18 hernia; hb - Immunization history:: Adult Immunizations up to date. - Social history:: Smoking status: . ROS: 12:15 Constitutional: Negative for fever, chills, and weight loss, Cardiovascular: Negative jmm for chest pain, palpitations, and edema, Respiratory: Negative for shortness of breath, cough, wheezing, and pleuritic chest pain. 12:15 Allergy/Immunology: Positive for pruritus. 12:15 All other systems are negative. Exam: 12:15 Constitutional: This is a well developed, well nourished patient who is awake, alert, jmm and in no acute distress. Head/Face: atraumatic. Eyes: EOMI, no conjunctival erythema appreciated ENT: Moist Mucus Membranes Neck: Trachea midline, Supple Chest/axilla: Normal chest wall appearance and motion. Cardiovascular: Regular rate and rhythm. No edema appreciated Respiratory: Normal respirations, no respiratory distress appreciated Abdomen/GI: Non distended Back: Normal ROM Skin: General appearance color normal MS/ Extremity: Moves all extremities, no obvious deformities appreciated, no edema noted to the lower extremities Neuro: Awake and alert Psych: Behavior is normal, Mood is normal, Patient is cooperative and pleasant MDM: 12:15 Patient medically screened. jmm 12:15 Differential diagnosis: lice, scabies, dermatitis. Data reviewed: vital signs, nurses jmm notes. Counseling: I had a detailed discussion with the patient and/or guardian regarding: the historical points, exam findings, and any diagnostic results supporting the discharge/admit diagnosis, the need for outpatient follow up, to return to the emergency department if symptoms worsen or persist or if there are any questions or concerns that arise at home. Administered Medications: No medications were administered Disposition: 15:23 Co-signature as Attending Physician, Marquis Plummre MD I reviewed the patient's care rn provided by the Advanced Practice Provider and agree with the diagnosis and treatment plan. Disposition Summary: 02/17/23 12:34 Discharge Ordered Location: Home [facility] Condition: Stable [facility] Diagnosis - Pediculosis, unspecified jmm Followup: [facility] - With: Private Physician - When: 2 - 3 days - Reason: Recheck today's complaints, Continuance of care, Re-evaluation by your physician Discharge Instructions: - Discharge Summary Sheet [facility] - Lice, Adult [facility] Forms: - Medication Reconciliation Form [facility] - Thank You Letter [facility] - Antibiotic Education [facility] - Prescription Opioid Use [facility] - [email or web address] [facility] Prescriptions: - ivermectin 3 mg Oral tablet - take 5 tablets by ORAL route once; 5 tablet; Refills: 0, Product Selection [facility] Permitted Signatures: Nic Murrieta PA PA [facility] Marquis Plummer MD MD rn Xin Prieto RN RN
== END 2023-02-17 12:55 | disposition home or self-care (01) ==
LOC: ER 12:06
DX: B85.2 Pediculosis, unspecified (principal)
CPT/HCPCS: 99283

== ENCOUNTER 2023-12-21 16:40 | Emergency (ER) | payer OTHER ==
[2023-12-21 17:30] LABS: Specific Gravity 1.027 (1.005-1.030)
[2023-12-21 17:37] LABS: Specific Gravity 1.027 (1.005-1.030); Sqamous Epithelial 20-50 /HPF (None Seen); Urine Bacteria 20-50 /HPF (<20); Urine Bilirubin NEGATIVE (Negative); Urine Blood 2+ (Negative); Urine Clarity Extremely Turbid (Clear); Urine Color Yellow (Yellow); Urine Culture Reflex Order NOT NEEDED; Urine Glucose NEGATIVE (Negative); Urine Ketones NEGATIVE (Negative); Urine Micro Reflex YN NO BILL MICROSCOPIC; Urine Mucus Slight /HPF (None Seen); Urine Nitrite NEGATIVE (Negative); Urine Protein TRACE (Negative); Urine RBC 21-50 /HPF (None Seen); Urine Urobilinogen Normal (Normal); Urine WBC >50 /HPF (<5)
--- NOTE | 2023-12-21 18:42 | ER ---
Nurse's Notes [facility] Name: Meenakshi Ojeda Age: 33 yrs Sex: Female : 1990 Arrival Date: 12/21/2023 Time: 16:40 Bed 11 Private MD: Diagnosis: Local infection of the skin and subcutaneous tissue, unspecified Presentation: 12/20 16:46 Chief complaint: Patient states: "I've been getting all these sores all over my body aa5 and I can't get rid of them". Coronavirus screen: At this time, the client does not indicate any symptoms associated with coronavirus-19. Ebola Screen: Patient denies travel to an Ebola-affected area in the 21 days before illness onset. Initial Sepsis Screen: Does the patient meet any 2 criteria? No. Patient's initial sepsis screen is negative. Does the patient have a suspected source of infection? No. Patient's initial sepsis screen is negative. Risk Assessment: Do you want to hurt yourself or someone else? Patient reports no desire to harm self or others. Onset of symptoms was 2023. 16:46 Method Of Arrival: Ambulatory aa5 16:46 Acuity: LUIS 5 aa5 Historical: - Allergies: 16:47 PENICILLINS; aa5 - PMHx: 16:47 Anxiety; Asthma; Seizures; aa5 - PSHx: 16:47 hernia; aa5 - Immunization history:: Adult Immunizations unknown. - Infectious Disease History:: Denies. - Social history:: Smoking status: Patient reports the use of cigarette tobacco products. Assessment: 18:45 Reassessment: Patient is alert, oriented x 3, equal unlabored respirations, skin aa5 warm/dry/pink. Vital Signs: 16:46 BP 144 / 95; Pulse 90; Resp 18 S; Temp 98(TE); Pulse Ox 100% on R/A; Weight 84.37 kg aa5 (R); Height 5 ft. 4 in. (R); 16:46 Body Mass Index 31.93 (84.37 kg, 162.56 cm) aa5 ED Course: 16:42 Patient arrived in ED. rg4 16:42 Ronny Hess PA is PHCP. cp 16:42 Mary Mitchell MD is Attending Physician. cp 16:46 Arm band placed on. aa5 16:47 Triage completed. aa5 18:39 Anai Martinez, RN is Primary Nurse. 18:45 No provider procedures requiring assistance completed. Patient did not have IV access aa5 during this emergency room visit. Administered Medications: No medications were administered Outcome: 18:41 Discharge ordered by MD. cp 18:45 Discharged to home ambulatory, with family, aa5 18:45 Condition: stable 18:45 Discharge instructions given to patient, Instructed on discharge instructions, follow up and referral plans. medication usage, Demonstrated understanding of instructions, follow-up care, medications, Prescriptions given X 1, 18:46 Patient left the ED. aa5 Signatures: Gwen Hernandez, RN RN aa5 Anai Martinez, RN RN ph Ronny Hess, PA PA Joslyn Dang rg4
--- NOTE | 2023-12-21 18:42 | EDPHYS ---
Physician Documentation [facility] Name: Meenakshi Ojeda Age: 33 yrs Sex: Female : 1990 Arrival Date: 12/21/2023 Time: 16:40 Bed 11 Private MD: ED Physician Mary Mitchell HPI: 12/20 17:00 This 33 yrs old Female presents to ER via Ambulatory with complaints of Abscess. cp 17:00 The patient presents with an abscess of the right hip. Description: draining. cp Associated signs and symptoms: Pertinent positives: diffuse areas of superficial wounds with mild erythema to upper back, nose and arms, Pertinent negatives: fever, active drainage. Historical: - Allergies: 16:47 PENICILLINS; aa5 - PMHx: 16:47 Anxiety; Asthma; Seizures; aa5 - PSHx: 16:47 hernia; aa5 - Immunization history:: Adult Immunizations unknown. - Infectious Disease History:: Denies. - Social history:: Smoking status: Patient reports the use of cigarette tobacco products. ROS: 17:05 All other systems are negative, cp Exam: 18:10 Head/Face: Normocephalic, atraumatic. cp 18:10 Constitutional: The patient appears in no acute distress, alert, awake, non-toxic, well developed, well nourished, 18:10 Cardiovascular: Rate: normal, 18:10 Respiratory: the patient does not display signs of respiratory distress, Respirations: normal, no use of accessory muscles, no retractions, 18:10 Abdomen/GI: Exam negative for discomfort, distension, guarding, Inspection: abdomen appears normal, 18:10 Skin: diffuse areas of erythematous papules with mild swelling but no abscess and no areas of drainage. Vital Signs: 16:46 BP 144 / 95; Pulse 90; Resp 18 S; Temp 98(TE); Pulse Ox 100% on R/A; Weight 84.37 kg aa5 (R); Height 5 ft. 4 in. (R); 16:46 Body Mass Index 31.93 (84.37 kg, 162.56 cm) aa5 MDM: 16:48 Patient medically screened. cp 18:10 Differential diagnosis: abscess, allergic reaction, cellulitis, insect bite. cp 18:40 Data reviewed: vital signs, nurses notes, and as a result, I will discharge patient. cp 18:40 Counseling: I had a detailed discussion with the patient and/or guardian regarding the cp historical points, exam findings, and any diagnostic results supporting the discharge/admit diagnosis, to return to the emergency department if symptoms worsen or persist or if there are any questions or concerns that arise at home. 12/20 17:26 Order name: Urinalysis W/Microscopic EDDE 12/20 17:26 Order name: Test, Urine EDDE 12/20 17:30 Order name: Test, Urine; Complete Time: 18:40 EDDE 12/20 17:37 Order name: Urinalysis W/Microscopic; Complete Time: 18:40 EDDE 12/20 18:40 Interpretation: Reviewed. cp Administered Medications: No medications were administered Disposition Summary: 12/21/23 18:41 Discharge Ordered Notes: Location: Home cp Problem: new cp Symptoms: are unchanged cp Condition: Stable cp Diagnosis - Local infection of the skin and subcutaneous tissue, unspecified cp Followup: cp - With: Private Physician - When: 2 - 3 days - Reason: Worsening of condition Discharge Instructions: - Discharge Summary Sheet cp - Cellulitis, Adult cp Forms: - Medication Reconciliation Form cp - Antibiotic Education cp - Prescription Opioid Use cp - Patient Portal Instructions cp - Leadership Thank You Letter cp Prescriptions: - Doxycycline Hyclate 100 mg Oral Tablet - take 1 tablet ORAL route every 12 hours; 20 tablet; Refills: 0, Product cp Selection Permitted Signatures: Dispatcher [employer] Gwen Edmonds RN RN aa5 Ronny Hess PA PA cp
[2023-12-22 14:52] VITALS: BP 144/95; TEMP 98; O2SAT 100
== END 2023-12-21 18:46 | disposition home or self-care (01) ==
LOC: ER 16:40
DX: L08.9 Local infection of the skin and subcutaneous tissue, unspecified (principal); Z72.0 Tobacco use; Z88.0 Allergy status to penicillin
CPT/HCPCS: 81001; 81025; 99283

== ENCOUNTER 2024-09-08 23:18 | Emergency (ER) | payer OTHER ==
[2024-09-08] MEDS ORDERED: NA CHLORIDE 0.9% 1,000 ML ONE (23:44)
[2024-09-08] MEDS ORDERED: MORPHINE 4 MG/ML SYR ONE (23:44)
[2024-09-08] MEDS ORDERED: ONDANSETRON 4 MG/2 ML VIAL ONE (23:44)
[2024-09-08] MEDS ORDERED: METOCLOPRAMIDE 10 MG/2mL INJ ONE (23:44)
[2024-09-08 23:56] LABS: Absolute Basophils 0.1 K/uL (0-0.5); Absolute Eosinophils 0.2 K/uL (0-0.5); Absolute Lymphocytes (CBC) 4.1 K/uL (0.7-4.9); Absolute Monocytes 0.8 K/uL (0.1-1.3); Absolute Neutrophil 5.7 K/uL (1.8-8.0); Basophils % 0.6 % (0-1.3); Eosinophils % 1.4 % (0-4.4); Hematocrit 41.9 % (36.0-45.0); Hemoglobin 14.7 g/dL (12.0-15.0); Lymphocytes % 38.2 % (15.3-44.8); MCH 30.9 pg (27.0-35.0); MCV 88.2 fL (80-100); MPV 8.1 fL (7.6-11.3); Monocytes % 7.3 % (3.3-12.3); Neutrophils % 52.5 % (41.7-73.7); Platelets 325 thou/uL (152-406); RBC Red Blood Cell Count 4.75 M/uL (3.86-4.86); Red Cell Distribution Width 13.3 % (12.1-15.2)
[2024-09-09 00:07] LABS: Albumin 3.9 g/dL (3.4-5.0); Albumin/Globulin Ratio 1.1 (1.1-1.8); Anion Gap 9.2 mEq/L (5.0-15.0); Bilirubin Total 0.5 mg/dL (0.2-1.0); Globulin 3.7 g/dL (2.3-3.5); Potassium 3.2 mEq/L (3.5-5.1); Protein, Total 7.6 g/dL (6.4-8.2)
[2024-09-09] MEDS ORDERED: KETOROLAC 30 MG/ML INJ ONE (00:39)
--- NOTE | 2024-09-09 00:44 | RAD REPORT ---
EXAM: US Abdomen Limited, Gallbladder CLINICAL HISTORY: The patient is 33 years old and is Female; ABD PAIN TECHNIQUE: Real-time ultrasound of the right upper quadrant with image documentation. COMPARISON: No relevant prior studies available. FINDINGS: GALLBLADDER: Unremarkable. No gallstones. Negative sonographic Pastor sign. COMMON BILE DUCT: Unremarkable as visualized. No stones. No dilation. IMPRESSION: Negative gallbladder ultrasound. Electronically signed by: Wendy Medina MD 09/09/2024 12:38 AM [facility] Due to temporary technical issues with the PACS/[employer] reporting system, reports are being signed by the in-house radiologist without review as a courtesy to ensure prompt reporting the interpreting radiologist is fully responsible for the content of the report. Transcribed Date/Time: 09/09/2024 12:43 AM
[2024-09-09 01:35] LABS: Specific Gravity 1.029 (1.005-1.030); Sqamous Epithelial <5 /HPF (None Seen); Urine Bacteria None Seen /HPF (<20); Urine Bilirubin NEGATIVE (Negative); Urine Blood 2+ (Negative); Urine Clarity Clear (Clear); Urine Color Yellow (Yellow); Urine Culture Reflex Order NOT NEEDED; Urine Glucose NEGATIVE (Negative); Urine Ketones NEGATIVE (Negative); Urine Microscopic Reflex YN ORDER UMIC; Urine Mucus 1+ /HPF (None Seen); Urine Nitrite NEGATIVE (Negative); Urine Protein TRACE (Negative); Urine Urobilinogen Normal (Normal); Urine WBC <5 /HPF (<5); Urine pH 6.5 (5.0-7.0)
[2024-09-09] MEDS ORDERED: HYDROCODONE/APAP 5/325 MG TAB ONE (02:24)
[2024-09-09] MEDS ORDERED: PROMETHAZINE 25 MG TABLET ONE (02:24)
--- NOTE | 2024-09-09 03:23 | RAD REPORT ---
AM: CT Abdomen and Pelvis With Intravenous Contrast CLINICAL HISTORY: The patient is 33 years old and is Female; ABD PAIN TECHNIQUE: Axial computed tomography images of the abdomen and pelvis with intravenous contrast. Sagittal and coronal reformatted images were created and reviewed. This CT exam was performed using one or more of the following dose reduction techniques: automated exposure control, adjustmen t of the mA and/or kV according to patient size, and/or use of iterative reconstruction technique. COMPARISON: No relevant prior studies available. FINDINGS: Lung bases: Unremarkable. No mass. No consolidation. ABDOMEN: Liver: Unremarkable. No mass. Gallbladder and bile ducts: Unremarkable. No calcified stones. No ductal dilation. Pancreas: Unremarkable. No mass. No ductal dilation. Spleen: Unremarkable. No splenomegaly. Adrenals: Unremarkable. No mass. Kidneys and ureters: Unremarkable. No solid mass. No hydronephrosis. Stomach and bowel: Unremarkable. No obstruction. No mucosal thickening. PELVIS: Appendix: No findings to suggest acute appendicitis. Bladder: Unremarkable. Reproductive: Unremarkable as visualized. ABDOMEN and PELVIS: Intraperitoneal space: Unremarkable. No free air. No significant fluid collection. Bones/joints: No acute fracture. No dislocation. Soft tissues: Unremarkable. Vasculature: Unremarkable. No abdominal aortic aneurysm. Lymph nodes: Unremarkable. No enlarged lymph nodes. IMPRESSION: No acute finding in the abdomen/pelvis. Electronically signed by: Bradley Thomas MD 09/09/2024 03:15 AM [facility] 8 Due to temporary technical issues with the PACS/[employer] reporting system, reports are being aguila d by the in-house radiologist without review as a courtesy to ensure prompt reporting the interpreting radiologist is fully responsible for the content of the report. Transcribed Date/Time: 09/09/2024 3:23 AM
--- NOTE | 2024-09-09 03:57 | ER ---
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 rg5 Coronavirus screen: Client denies travel out of the [place] in the last 14 days. Ebola Screen: Patient negative for fever greater than or equal to 101.5 degrees Fahrenheit, and additional compatible Ebola Virus Disease symptoms. Initial Sepsis Screen: Does the patient meet any 2 criteria? No. Patient's initial sepsis screen is negative. Does the patient have a suspected source of infection? No. Patient's initial sepsis screen is negative. Risk Assessment: Do you want to hurt yourself or someone else? Patient reports no desire to harm self or others. Onset of symptoms was September 08, 2024. 23:22 Method Of Arrival: EMS: [facility] 5 23:22 Acuity: LUIS 3 rg5 Triage Assessment: 23:25 General: Appears in no apparent distress. Behavior is calm, cooperative, appropriate rg5 for age. Pain: Complains of pain in abdomen Pain currently is 8 out of 10 on a pain scale. Quality of pain is described as aching, Pain began 2 hours ago. EENT: No deficits noted. Neuro: Level of Consciousness is awake, alert, obeys commands, Oriented to person, place, time. Cardiovascular: Denies chest pain, Patient's skin is warm and dry. Respiratory: Airway is patent Trachea midline Respiratory effort is even, unlabored, Respiratory pattern is regular, symmetrical. GI: Reports upper abdominal pain, nausea. : No signs and/or symptoms were reported regarding the genitourinary system. Derm: Skin is intact, Skin is dry, Skin is normal, Skin temperature is warm. Musculoskeletal: Circulation, motion, and sensation intact. Range of motion: intact in all extremities. CORPORATE ASSOCIATE: 23:25 LMP 09/07/2023, unknown rg5 Historical: - Allergies: 23:25 PENICILLINS; rg5 - PMHx: 23:25 Anxiety; Asthma; Seizures; rg5 - Immunization history:: Adult Immunizations up to date. - Infectious Disease History:: Denies. - Social history:: Smoking status: unknown. - Family history:: not pertinent. Screenin:30 [facility] ED Fall Risk Assessment (Adult) History of falling in the last 3 months, rg5 including since admission No falls in past 3 months (0 pts) Confusion or Disorientation No (0 pts) Intoxicated or Sedated No (0 pts) Impaired Gait No (0 pts) Mobility Assist Device Used No (0 pt) Altered Elimination No (0 pt) Score/Fall Risk Level 0 - 2 = Low Risk Oriented to surroundings, Maintained a safe environment, Hourly rounding (assess needs \T\ fall precautionary measures) done. 23:30 Abuse screen: Denies threats or abuse. Nutritional screening: No deficits noted. rg5 Tuberculosis screening: No symptoms or risk factors identified. Assessment: 23:28 Reassessment: SEE TRIAGE ASSESSMENT. rg5 23:30 GI: Abdomen is round non-distended, Bowel sounds present in left lower quadrant Abd is rg5 soft and non tender Reports upper abdominal pain, nausea. 09/09 00:30 Reassessment: No changes from previously documented assessment. Patient and/or family rg5 updated on plan of care and expected duration. Pain level reassessed. 01:25 Reassessment: Patient and/or family updated on plan of care and expected duration. Pain rg5 level reassessed. Patient is alert, oriented x 3, equal unlabored respirations, skin warm/dry/pink. Patient states symptoms have improved. Vital Signs: 09/08 23:25 BP 142 / 82; Pulse 82; Resp 17; Temp 98.4; Pulse Ox 97% on R/A; Weight 83.46 kg; Height rg5 5 ft. 4 in. ; Pain 8/10; 09/09 01:05 BP 122 / 73; Pulse 74; Resp 18; Temp 97.8(O); Pulse Ox 100% on R/A; Pain 0/10; rg5 02:28 BP 94 / 51; Pulse 78; Resp 17; Pulse Ox 100% on R/A; Pain 6/10; rg5 03:30 BP 106 / 62; Pulse 78; Resp 15; Pulse Ox 100% on R/A; dd2 04:08 BP 102 / 57; Pulse 74; Resp 16; Temp 97.9; Pulse Ox 100% on R/A; dd2 09/08 23:25 Body Mass Index 31.58 (83.46 kg, 162.56 cm) rg5 09/08 23:25 Pain Scale: Adult rg5 09/09 01:05 Pain Scale: Adult rg5 02:28 Pain Scale: Adult rg5 [place] Coma Score: 01:15 Eye Response: spontaneous(4). Motor Response: obeys commands(6). Verbal Response: sp4 oriented(5). Total: 15. ED Course: 09/08 23:20 Patient arrived in ED. lg3 23:21 Brigido Ohara, RN is Primary Nurse. rg5 23:23 Moreno Sanchez MD is Attending Physician. sp4 23:25 Triage completed. rg5 23:25 Arm band placed on. rg5 23:27 Radiology exam delayed due to test not completed at this time. nj 23:30 Patient has correct armband on for positive identification. Placed in gown. Bed in low rg5 position. Call light in reach. Side rails up X2. Client placed on continuous cardiac and pulse oximetry monitoring. NIBP monitoring applied. manager domestic on. Pulse ox on. Door closed. Warm blanket given. 23:30 No provider procedures requiring assistance completed. Inserted saline lock: 20 gauge rg5 in right antecubital area, using aseptic technique. Blood collected. Flushed with 10 mL NS. 23:51 US Abdomen Limited In Process Unspecified. EDMS 09/09 01:57 CT Abd/Pelvis - IV Contrast Only In Process Unspecified. EDMS 04:08 IV discontinued, intact, bleeding controlled, No redness/swelling at site. Pressure dd2 dressing applied. 04:09 Provided Education on: D/C EDUCATION. dd2 Administered Medications: 09/08 23:52 Drug: Ondansetron IVP 4 mg IVP once; over 2 minutes Route: IVP; Site: right antecubital;rg5 09/09 00:35 Follow up: Response: No adverse reaction; Pain is decreased rg5 09/08 23:52 Drug: morphine IVP or IV 4 mg IVP once over 4 mins Route: IVP; Infused Over: 4 mins; rg5 Site: right antecubital; 09/09 00:35 Follow up: Response: No adverse reaction; Pain is decreased rg5 09/08 23:52 Drug: NS 0.9% IV 1000 ml IV at 1 bolus Per protocol; to be given as a bolus over 60 rg5 minutes Route: IV; Rate: 1 bolus; Site: right antecubital; 09/09 00:35 Follow up: IV Status: Completed infusion; IV Intake: 1000ml rg5 09/08 23:55 Drug: metoCLOPramide IVP 10 mg IVP once; over 1 to 2 minutes Route: IVP; Site: right rg5 antecubital; 09/09 00:34 Follow up: Response: No adverse reaction rg5 00:35 Drug: Ketorolac IVP 30 mg IVP once Route: IVP; Site: right antecubital; rg5 02:20 Follow up: Response: No adverse reaction; Pain is decreased rg5 02:28 Drug: HYDROcodone-acetaminophen PO 5 mg-325 mg 2 tabs PO once Route: PO; rg5 02:47 Follow up: Response: No adverse reaction rg5 02:28 Drug: Promethazine PO 25 mg PO once Route: PO; rg5 02:46 Follow up: Response: No adverse reaction rg5 Medication: 00:00 VIS not applicable for this client. rg5 Intake: 00:35 IV: 1000ml; Total: 1000ml. rg5 Outcome: 03:57 Discharge ordered by . sp4 04:08 Discharged to home ambulatory, dd2 04:08 Condition: stable 04:08 Discharge instructions given to patient, Instructed on discharge instructions, follow up and referral plans. medication usage, Demonstrated understanding of instructions, follow-up care, medications, Prescriptions given X 2, 04:09 Patient left the ED. dd2 Signatures: Dispatcher [employer] EDMS Rajesh Lee Lacie RN RN lg3 Moreno Sanchez MD MD sp4 Brigido Ohara RN RN rg5 NARGIS SANTIAGO RN RN dd2
--- NOTE | 2024-09-09 03:58 | EDPHYS ---
Physician Documentation [facility] Name: Meenakshi Ojeda Age: 33 yrs Sex: Female : 1990 Arrival Date: 09/08/2024 Time: 23:18 Bed 18 Private MD: ED Physician Moreno Sanchez HPI: 09/08 23:23 This 33 yrs old Female presents to ER via Unassigned with complaints of sp4 Abdominal Pain. 09/09 00:24 33-year-old female history of 3 prior pregnancies , history of umbilical hernia sp4 repaired with mesh and subsequent mesh resection, history of anxiety asthma and seizure disorder on Lamictal and Depakote. Presents with right upper quadrant abdominal pain and nausea starting today.. 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 - Infectious Disease History:: Denies. - Social history:: Smoking status: unknown. - Family history:: not pertinent. ROS: 09/09 00:24 Constitutional: Negative for fever, chills, and weight loss, Eyes: Negative for injury, sp4 pain, redness, and discharge, Abdomen/GI: Positive for right upper quadrant abdominal pain positive for nausea All other systems are negative, Exam: 01:15 Constitutional: This is a well developed, well nourished patient who is awake, alert, sp4 and in no acute distress. Head/Face: Normocephalic, atraumatic. Eyes: Pupils equal round and reactive to light, extra-ocular motions intact. Lids and lashes normal. Conjunctiva and sclera are not injected. Cornea within normal limits. Periorbital areas with no swelling, redness, or edema. ENT: Nares patent. No nasal discharge, no septal abnormalities noted. Tympanic membranes are normal and external auditory canals are clear. Oropharynx with no redness, swelling, or masses, exudates, or evidence of obstruction, uvula midline. Mucous membranes moist. Neck: Trachea midline, no thyromegaly or masses palpated, and no cervical lymphadenopathy. Supple, full range of motion without nuchal rigidity, or vertebral point tenderness. Chest/axilla: Normal chest wall appearance and motion. Nontender with no deformity. No lesions are appreciated. Cardiovascular: Regular rate and rhythm with a normal S1 and S2. No gallops, murmurs, or rubs. Normal PMI, no JVD. No pulse deficits. Respiratory: Lungs have equal breath sounds bilaterally, clear to auscultation and percussion. No rales, rhonchi or wheezes noted. No increased work of breathing, no retractions or nasal flaring. Abdomen/GI: Soft, with normal bowel sounds. No distension or tympany. No guarding or rebound. No evidence of tenderness throughout. Back: No spinal tenderness. No costovertebral tenderness. Skin: Warm, dry with normal turgor. Normal color with no rashes, no lesions, and no evidence of cellulitis. MS/ Extremity: Pulses equal, no cyanosis. Neurovascular intact. Full, normal range of motion. Neuro: Awake and alert, GCS 15, oriented to person, place, time, and situation. Cranial nerves II-XII grossly intact. Motor strength 5/5 in all extremities. Sensory grossly intact. Psych: Awake, alert, with orientation to person, place and time. Behavior, mood, and affect are within normal limits Vital Signs: 09/08 23:25 BP 142 / 82; Pulse 82; Resp 17; Temp 98.4; Pulse Ox 97% on R/A; Weight 83.46 kg; Height rg5 5 ft. 4 in. ; Pain 8/10; 09/09 01:05 BP 122 / 73; Pulse 74; Resp 18; Temp 97.8(O); Pulse Ox 100% on R/A; Pain 0/10; rg5 02:28 BP 94 / 51; Pulse 78; Resp 17; Pulse Ox 100% on R/A; Pain 6/10; rg5 03:30 BP 106 / 62; Pulse 78; Resp 15; Pulse Ox 100% on R/A; dd2 04:08 BP 102 / 57; Pulse 74; Resp 16; Temp 97.9; Pulse Ox 100% on R/A; dd2 09/08 23:25 Body Mass Index 31.58 (83.46 kg, 162.56 cm) [facility] 09/08 23:25 Pain Scale: Adult [facility] 09/09 01:05 Pain Scale: Adult rg5 02:28 Pain Scale: Adult rg5 [place] Coma Score: 01:15 Eye Response: spontaneous(4). Motor Response: obeys commands(6). Verbal Response: sp4 oriented(5). Total: 15. MDM: 09/08 23:31 Medical Screening Exam initiated sp4 09/09 01:15 Differential diagnosis: bowel obstruction, cholecystitis, Cholelithiasis, sp4 diverticulitis, Dysmenorrhea, gastritis. Data reviewed: vital signs, nurses notes, old medical records, lab test result(s), radiologic studies, CT scan, ultrasound. ED course: EXAM: US Abdomen Limited, Gallbladder CLINICAL HISTORY: The patient is 33 years old and is Female; ABD PAIN TECHNIQUE: Real-time ultrasound of the right upper quadrant with image documentation. COMPARISON: No relevant prior studies available. FINDINGS: GALLBLADDER: Unremarkable. No gallstones. Negative sonographic Pastor sign. COMMON BILE DUCT: Unremarkable as visualized. No stones. No dilation. IMPRESSION: Negative gallbladder ultrasound.. 03:47 ED course: EXAM: CTAbdomen and Pelvis With Intravenous Contrast CLINICAL HISTORY: The sp4 patient is 33 years old and is Female; ABD PAIN TECHNIQUE: Axial computed tomography images of the abdomen and pelvis with intravenous contrast. Sagittal and coronal reformatted images were created and reviewed. This CT exam was performed using one or more of the following dose reduction techniques: automated exposure control, adjustment of the mA and/or kV according to patient size, and/or use of iterative reconstruction technique. COMPARISON: No relevant prior studies available. FINDINGS: Lung bases: Unremarkable. No mass. No consolidation. ABDOMEN: Liver: Unremarkable. No mass. Gallbladder and bile ducts: Unremarkable. No calcified stones. No ductal dilation. Pancreas: Unremarkable. No mass. No ductal dilation. Spleen: Unremarkable. No splenomegaly. Adrenals: Unremarkable. No mass. Kidneys and ureters: Unremarkable. No solid mass. No hydronephrosis. Stomach and bowel: Unremarkable. No obstruction. No mucosal thickening. PELVIS: Appendix: No findings to suggest acute appendicitis. Bladder: Unremarkable. Reproductive: Unremarkable as visualized. ABDOMEN and PELVIS: Intraperitoneal space: Unremarkable. No free air. No significant fluid collection. Bones/joints: No acute fracture. No dislocation. Soft tissues: Unremarkable. Vasculature: Unremarkable. No abdominal aortic aneurysm. Lymph nodes: Unremarkable. No enlarged lymph nodes. IMPRESSION: No acute finding in the abdomen/pelvis. Electronically signed by: Bradley Thomas MD 09/09/2024 03:15 AM. 09/08 23:21 Order name: CBC with Diff; Complete Time: 00:21 sb4 09/08 23:21 Order name: CMP; Complete Time: 00:07 sb4 09/08 23:21 Order name: Lipase; Complete Time: 00:07 sb4 09/08 23:21 Order name: Urinalysis w/ reflexes; Complete Time: 01:45 sb4 09/09 01:16 Order name: Test, Urine; Complete Time: 01:45 EDMS 09/08 23:21 Order name: CT Abd/Pelvis - IV Contrast Only; Complete Time: 03:47 sb4 09/08 23:31 Order name: US Abdomen Limited; Complete Time: 01:16 sp4 09/08 23:21 Order name: IV Saline Lock; Complete Time: 23:53 sb4 09/08 23:21 Order name: Labs collected and sent; Complete Time: 23:53 sb4 Administered Medications: 09/08 23:52 Drug: Ondansetron IVP 4 mg IVP once; over 2 minutes Route: IVP; Site: right antecubital;5 09/09 00:35 Follow up: Response: No adverse reaction; Pain is decreased 5 09/08 23:52 Drug: morphine IVP or IV 4 mg IVP once over 4 mins Route: IVP; Infused Over: 4 mins; rg5 Site: right antecubital; 09/09 00:35 Follow up: Response: No adverse reaction; Pain is decreased 5 09/08 23:52 Drug: NS 0.9% IV 1000 ml IV at 1 bolus Per protocol; to be given as a bolus over 60 rg5 minutes Route: IV; Rate: 1 bolus; Site: right antecubital; 09/09 00:35 Follow up: IV Status: Completed infusion; IV Intake: 1000ml rg5 09/08 23:55 Drug: metoCLOPramide IVP 10 mg IVP once; over 1 to 2 minutes Route: IVP; Site: right rg5 antecubital; 09/09 00:34 Follow up: Response: No adverse reaction rg5 00:35 Drug: Ketorolac IVP 30 mg IVP once Route: IVP; Site: right antecubital; rg5 02:20 Follow up: Response: No adverse reaction; Pain is decreased rg5 02:28 Drug: HYDROcodone-acetaminophen PO 5 mg-325 mg 2 tabs PO once Route: PO; rg5 02:47 Follow up: Response: No adverse reaction rg5 02:28 Drug: Promethazine PO 25 mg PO once Route: PO; rg5 02:46 Follow up: Response: No adverse reaction rg5 Disposition Summary: 09/09/24 03:57 Discharge Ordered Notes: Location: Home sp4 Problem: new sp4 Symptoms: have improved sp4 Condition: Stable sp4 Diagnosis - Upper abdominal pain, unspecified sp4 - Nausea sp4 Followup: sp4 - With: Private Physician - When: 7 - 10 days - Reason: Recheck today's complaints Discharge Instructions: - Discharge Summary Sheet sp4 - Abdominal Pain, Adult sp4 Forms: - Patient Portal Instructions sp4 Prescriptions: - dicyclomine 20 mg Oral tablet - take 1 tablet ORAL route every 8 hours PRN abdominal pain; 30 tablet; Refills: sp4 0, Product Selection Permitted - ondansetron 8 mg Oral Tablet,disintegrating - take 1 tablet ORAL route every 8 hours PRN nausea; 30 tablet; Refills: 0, sp4 Product Selection Permitted Signatures: Dispatcher [employer] Razia Hanson PA-C PAPenny sb4 Moreno Sanchez MD MD sp4 Brigido Ohara RN RN rg5 Corrections: (The following items were deleted from the chart) 01:16 09/08 23:21 TEST, SERUM+[id number] ordered. EDMS EDMS
[2024-09-09 04:18] VITALS: O2SAT 100
[2024-09-09 04:22] VITALS: BP 102/57; TEMP 97.9
== END 2024-09-09 04:09 | disposition home or self-care (01) ==
LOC: ER 23:18
DX: R10.11 Right upper quadrant pain (principal); R11.0 Nausea; F41.9 Anxiety disorder, unspecified; J45.909 Unspecified asthma, uncomplicated; R56.9 Unspecified convulsions; Z88.0 Allergy status to penicillin
CPT/HCPCS: 96361; 85025; 81001; 36415; 81025; 83690; 80053; 74177; 76705; 96375; 96374; 99285; Q9967; Q0169; J2765; J2405; J7030

== ENCOUNTER 2024-10-21 21:35 | Emergency (ER) | payer OTHER ==
--- NOTE | 2024-10-21 22:37 | RAD REPORT ---
EXAMINATION: CT MAXILLOFACIAL WITHOUT CONTRAST CLINICAL INDICATION: Facial injury with facial pain TECHNIQUE: Axial images were obtained through the facial bones and orbits without intravenous contras t. Sagittal and coronal reconstructions were created from the data. One or more of the following dose reduction techniques were used: Automated exposure control, adjustment of the mA and/or kV accor ding to patient size, and/or iterative reconstruction. Unless otherwise specified, incidental findings do not require dedicated imaging follow-up. COMPARISON: No prior exam. FINDINGS: No fracture seen. No TMJ dislocation. Fluid within the sinuses not noted. Globes are normal size and density. Nasal septum is deviated towards the right. IMPRESSION: No fracture is visualized
--- NOTE | 2024-10-21 22:38 | RAD REPORT ---
EXAM: CT brain without contrast HISTORY: Syncope COMPARISON: 2008 TECHNIQUE: Multiple contiguous axial images were obtained and a CT of the brain without contrast.. Sagittal and coronal reconstruction performed. Automated exposure control, adjustment of the mA and/or kV according to patient size, and/or iterative reconstruction. Unless otherwise specified, incidental f indings do not require dedicated imaging follow-up FINDINGS: An intracranial bleed is not seen Ventricles are normal caliber No extra-axial fluid collection noted No significant hypodensity within the brain No fluid within the visualized sinuses or mastoids noted. IMPRESSION: No acute intracranial abnormality noted. If the patient continues to have symptoms to suggest an acute intracranial abnormality then MRI of th e brain would be recommended.
[2024-10-21 22:47] LABS: Absolute Basophils 0.1 K/uL (0-0.5); Absolute Eosinophils 0.2 K/uL (0-0.5); Absolute Lymphocytes (CBC) 3.7 K/uL (0.7-4.9); Absolute Monocytes 0.6 K/uL (0.1-1.3); Absolute Neutrophil 4.6 K/uL (1.8-8.0); Basophils % 1.1 % (0-1.3); Eosinophils % 2.5 % (0-4.4); Hematocrit 45.1 % (36.0-45.0); Hemoglobin 15.4 g/dL (12.0-15.0); Lymphocytes % 39.8 % (15.3-44.8); MCH 30.6 pg (27.0-35.0); MCHC 34.1 g/dL (32.0-36.0); MCV 89.7 fL (80-100); MPV 8.4 fL (7.6-11.3); Monocytes % 6.7 % (3.3-12.3); Neutrophils % 49.9 % (41.7-73.7); Platelets 313 thou/uL (152-406); RBC Red Blood Cell Count 5.03 M/uL (3.86-4.86); Red Cell Distribution Width 12.9 % (12.1-15.2)
[2024-10-21 22:58] LABS: Barbiturates NEGATIVE (NEGATIVE); Benzodiazepines NEGATIVE (NEGATIVE); Cocaine NEGATIVE (NEGATIVE); METHAMPHETAM POSITIVE (NEGATIVE); Methadone NEGATIVE (NEGATIVE); Opiates NEGATIVE (NEGATIVE); Phencyclidine NEGATIVE (NEGATIVE); THC Cannibis NEGATIVE (NEGATIVE)
[2024-10-21] MEDS ORDERED: LORazepam 2 MG/ML VIAL ONE (23:02)
[2024-10-21] MEDS ORDERED: NA CHLORIDE 0.9% 1,000 ML ONE (23:02)
[2024-10-21 23:09] LABS: ALT/SGPT 30 U/L (13-56); AST/SGOT 14 U/L (15-37); Albumin 3.8 g/dL (3.4-5.0); Albumin/Globulin Ratio 1.1 (1.1-1.8); Alkaline Phosphatase 82 U/L (45-117); Anion Gap 6.6 mEq/L (5.0-15.0); BUN Blood Urea Nitrogen 15 mg/dL (7-18); Bicarbonate 30 mEq/L (21-32); Bilirubin Total 0.3 mg/dL (0.2-1.0); Creatine Phosphokinase 124 U/L (26-192); Globulin 3.6 g/dL (2.3-3.5); Glomerular Filtration Rate 93 ml/min (=/>90); Glucose Level 86 mg/dL (74-106); Potassium 3.6 mEq/L (3.5-5.1); Protein, Total 7.4 g/dL (6.4-8.2); Sodium Level 137 mEq/L (136-145)
[2024-10-21 23:18] LABS: Bilirubin Direct < 0.2 mg/dL (0-0.2); Bilirubin Indirect, Calculated 0.1 mg/dL (0.2-0.8)
--- NOTE | 2024-10-22 00:23 | ER ---
Nurse's Notes [facility] Name: Meenakshi Ojeda Age: 33 yrs Sex: Female : 1990 Arrival Date: 10/21/2024 Time: 21:35 Bed 8 Private MD: Diagnosis: Acute Methamphetamine Intoxication, Syncope and collapse , acute facial contusion, acute left forehead abrasion Presentation: 10/21 21:56 Chief complaint: EMS states: TONED OUT FOR SYNCOPE. EMS REPORTS THAT PT STATED SHE SAT dd2 DOWN TO HAVE A BOWEL MOVEMENT AT 9:00 AND PASSED OUT, WOKE UP IN THE BATHROOM AT 9PM. PT REPORTS NOT TAKING SEIZURE MEDS FOR 1 MONTH. Coronavirus screen: At this time, the client does not indicate any symptoms associated with coronavirus-19. Ebola Screen: No symptoms or risks identified at this time. Initial Sepsis Screen: Does the patient meet any 2 criteria? No. Patient's initial sepsis screen is negative. Does the patient have a suspected source of infection? No. Patient's initial sepsis screen is negative. Risk Assessment: Do you want to hurt yourself or someone else? Patient reports no desire to harm self or others. Onset of symptoms was October 21, 2024. Care prior to arrival: None. 21:56 Method Of Arrival: EMS: [facility] dd2 21:56 Acuity: LUIS 3 dd2 Triage Assessment: 22:06 General: Appears in no apparent distress. Behavior is calm, cooperative, appropriate dd2 for age. Pain: Complains of pain in forehead and nose Pain currently is 6 out of 10 on a pain scale. EENT: Nares with bleeding noted. Neuro: No deficits noted. Hernandez Agitation-Sedation Scale (RASS): 0 - Alert and Calm Level of Consciousness is awake, alert, obeys commands, Oriented to person, place, time, situation, Appropriate for age. Cardiovascular: No deficits noted. Patient's skin is warm and dry. Respiratory: No deficits noted. Airway is patent Respiratory effort is even, unlabored, Respiratory pattern is regular, symmetrical. GI: No deficits noted. No signs and/or symptoms were reported involving the gastrointestinal system. Abdomen is non-distended, Abd is soft and non tender. : No deficits noted. No signs and/or symptoms were reported regarding the genitourinary system. Derm: Wound noted LT FOREHEAD Wound is ABRASION. Musculoskeletal: Circulation, motion, and sensation intact. Range of motion: intact in all extremities. Injury Description: Abrasion sustained to LT FOREHEAD. Historical: - Allergies: 22:06 PENICILLINS; dd2 - PMHx: 22:06 Anxiety; Asthma; Seizures; dd2 - PSHx: 22:06 hernia; dd2 - Immunization history:: Adult Immunizations up to date, Client reports receiving the 2nd dose of the Covid vaccine, Client reports receiving the Ángel \T\ Ángel single-dose vaccine. Flu vaccine is not up to date. It has been more than one year since last vaccine. - Infectious Disease History:: Denies. - Family history:: not pertinent. - Social history:: Smoking status: Reported history of juuling and/or vaping. Screenin:57 [facility] ED Fall Risk Assessment (Adult) History of falling in the last 3 months, dd2 including since admission Yes- single mechanical fall (1 pt) Confusion or Disorientation No (0 pts) Intoxicated or Sedated No (0 pts) Impaired Gait No (0 pts) Mobility Assist Device Used No (0 pt) Altered Elimination No (0 pt) Score/Fall Risk Level 0 - 2 = Low Risk Oriented to surroundings, Maintained a safe environment, Educated pt \T\ family on fall prevention, incl call for assistance when getting out of bed, Assessed \T\ reinforced patient's understanding of fall precautions, Hourly rounding (assess needs \T\ fall precautionary measures) done. Abuse screen: Denies threats or abuse. Denies injuries from another. Nutritional screening: No deficits noted. Tuberculosis screening: No symptoms or risk factors identified. Assessment: 22:09 Reassessment: SEE TRIAGE FOR FULL ASSESSMENT. dd2 23:41 Reassessment: Patient appears in no apparent distress at this time. Patient and/or jb4 family updated on plan of care and expected duration. Pain level reassessed. Patient is alert, oriented x 3, equal unlabored respirations, skin warm/dry/pink. Vital Signs: 21:56 BP 142 / 87; Pulse 82; Resp 16; Temp 98.4; Pulse Ox 98% ; dd2 23:41 BP 149 / 97; Pulse 85; Resp 16; Pulse Ox 97% on R/A; jb4 03 00:03 BP 139 / 93; Pulse 74; Resp 16; Pulse Ox 100% on R/A; dd2 Renae Coma Score: 03 21:43 Eye Response: spontaneous(4). Motor Response: obeys commands(6). Verbal Response: sp4 oriented(5). Total: 15. ED Course: 21:37 Patient arrived in ED. jj6 21:37 Moreno Sanchez MD is Attending Physician. sp4 21:45 NARGIS SANTIAGO RN is Primary Nurse. dd2 22:01 CT Head Brain wo Cont In Process Unspecified. EDMS 22:05 CT Facial Bones W/O Con In Process Unspecified. EDMS 22:06 Triage completed. dd2 22:06 Arm band placed on right wrist. Patient placed in an exam room, on a stretcher, on dd2 pulse oximetry. 22:46 Lactate w/ 2H reflex if indic. Sent. dd2 22:46 Alcohol Level Sent. dd2 22:46 Urine Drug Screen Sent. dd2 22:46 Test, Serum Sent. dd2 22:46 T4 Free Sent. dd2 22:46 TSH Sent. dd2 22:46 Basic Metabolic Panel Sent. dd2 22:47 CBC with Diff Sent. dd2 22:47 LFT's Sent. dd2 22:57 Patient has correct armband on for positive identification. Bed in low position. Call dd2 light in reach. Side rails up X2. Client placed on continuous cardiac and pulse oximetry monitoring. NIBP monitoring applied. monitor technician on. Door closed. Noise minimized. Warm blanket given. Pillow given. Verbal reassurance given. 22:57 No provider procedures requiring assistance completed. Initial lab(s) drawn, by me, dd2 sent to lab. Urine collected: clean catch specimen, cloudy. Inserted saline lock: 20 gauge in right antecubital area, using aseptic technique. Blood collected. Flushed with 10 mL NS. 03 01:03 IV discontinued, intact, bleeding controlled, No redness/swelling at site. Pressure dd2 dressing applied. Administered Medications: 10/21 23:09 Drug: Ativan IVP 2 mg IVP once Route: IVP; Site: right antecubital; jb4 23:24 Follow up: Response: No adverse reaction dd2 23:09 Drug: NS 0.9% IV 1000 ml IV at 1000 ml once; to be given as a bolus over 60 minutes jb4 Route: IV; Rate: 1000 ml; Site: right antecubital; 10/22 00:09 Follow up: IV Status: Completed infusion; IV Intake: 1000ml dd2 Medication: 10/21 22:57 VIS not applicable for this client. dd2 Intake: 10/22 00:09 IV: 1000ml; Total: 1000ml. dd2 Outcome: 00:23 Discharge ordered by . sp4 01:03 Discharged to home ambulatory, dd2 01:03 Condition: stable 01:03 Discharge instructions given to patient, Instructed on discharge instructions, follow up and referral plans. medication usage, Demonstrated understanding of instructions, follow-up care, medications, Prescriptions given X 1, 01:05 Patient left the ED. dd2 Signatures: Dispatcher [employer] EDMS Martín Rossi, RN RN jb4 Terri Du6 Moreno Sanchez MD MD sp4 NARGIS SANTIAGO RN RN dd2
--- NOTE | 2024-10-22 00:24 | EDPHYS ---
Physician Documentation [facility] Name: Meenakshi Ojeda Age: 33 yrs Sex: Female : 1990 Arrival Date: 10/21/2024 Time: 21:35 Bed 8 Private MD: ED Physician Moreno Sanchez HPI: 10/21 21:37 This 33 yrs old Female presents to ER via Unassigned with complaints of Fall sp4 Injury. 21:43 33-year-old female with history of epilepsy in the past on Depakote and Lamictal, sp4 presents with EMS for acute syncopal episode at home associated with fall and the right sided nosebleed. Patient also has abrasion to left upper forehead. Patient states she has not been on her seizure medications for the past 1 month. Patient states she developed adverse reactions to her medications and is currently not on them. . Historical: - Allergies: 22:06 PENICILLINS; dd2 - PMHx: 22:06 Anxiety; Asthma; Seizures; dd2 - PSHx: 22:06 hernia; dd2 - Immunization history:: Adult Immunizations up to date, Client reports receiving the 2nd dose of the Covid vaccine, Client reports receiving the Ángel \T\ Ángel single-dose vaccine. Flu vaccine is not up to date. It has been more than one year since last vaccine. - Infectious Disease History:: Denies. - Family history:: not pertinent. - Social history:: Smoking status: Reported history of juuling and/or vaping. ROS: 21:43 Constitutional: Negative for fever, chills, and weight loss, positive fall, positive sp4 syncope, positive nose bleed, positive forehead abrasion. 21:43 All other systems are negative, Exam: 21:43 Constitutional: This is a well developed, well nourished patient who is awake, alert, sp4 and in no acute distress. Head/Face: Normocephalic, atraumatic. Eyes: Pupils equal round and reactive to light, extra-ocular motions intact. Lids and lashes normal. Conjunctiva and sclera are not injected. Cornea within normal limits. Periorbital areas with no swelling, redness, or edema. ENT: Nares patent. No nasal discharge, no septal abnormalities noted. Tympanic membranes are normal and external auditory canals are clear. Oropharynx with no redness, swelling, or masses, exudates, or evidence of obstruction, uvula midline. Mucous membranes moist. Neck: Trachea midline, no thyromegaly or masses palpated, and no cervical lymphadenopathy. Supple, full range of motion without nuchal rigidity, or vertebral point tenderness. Chest/axilla: Normal chest wall appearance and motion. Nontender with no deformity. No lesions are appreciated. Cardiovascular: Regular rate and rhythm with a normal S1 and S2. No gallops, murmurs, or rubs. Normal PMI, no JVD. No pulse deficits. Respiratory: Lungs have equal breath sounds bilaterally, clear to auscultation and percussion. No rales, rhonchi or wheezes noted. No increased work of breathing, no retractions or nasal flaring. Abdomen/GI: Soft, with normal bowel sounds. No distension or tympany. No guarding or rebound. No evidence of tenderness throughout. Back: No spinal tenderness. No costovertebral tenderness. Skin: Warm, dry with normal turgor. Normal color with no rashes, no lesions, and no evidence of cellulitis. MS/ Extremity: Pulses equal, no cyanosis. Neurovascular intact. Full, normal range of motion. Neuro: Awake and alert, GCS 15, oriented to person, place, time, and situation. Cranial nerves II-XII grossly intact. Motor strength 5/5 in all extremities. Sensory grossly intact. Psych: Awake, alert, with orientation to person, place and time. Behavior, mood, and affect are within normal limits 10/22 23:33 ECG was reviewed by the Attending Physician. EKG at 2256 normal sinus rhythm normal EKG sp4 Vital Signs: 10/21 21:56 BP 142 / 87; Pulse 82; Resp 16; Temp 98.4; Pulse Ox 98% ; dd2 23:41 BP 149 / 97; Pulse 85; Resp 16; Pulse Ox 97% on R/A; jb4 10/22 00:03 BP 139 / 93; Pulse 74; Resp 16; Pulse Ox 100% on R/A; dd2 Otis Coma Score: 10/21 21:43 Eye Response: spontaneous(4). Motor Response: obeys commands(6). Verbal Response: sp4 oriented(5). Total: 15. MDM: 21:40 Medical Screening Exam initiated sp4 10/22 00:17 Differential diagnosis: abrasion, closed head injury, contusion, fracture, multiple sp4 trauma, sprain, strain. Data reviewed: vital signs, nurses notes, EMS record, lab test result(s), EKG, radiologic studies, CT scan. Consideration of Admission/Observation Escalation of care including admission/observation considered. ED course: Patient positive for methamphetamine. Patient strongly advised to stay free of amphetamine. ED course: COMPARISON: 2008 TECHNIQUE: Multiple contiguous axial images were obtained and a CT of the brain without contrast.. Sagittal and coronal reconstruction performed. Automated exposure control, adjustment of the mA and/or kV according to patient size, and/or iterative reconstruction. Unless otherwise specified, incidental findings do not require dedicated imaging follow-up FINDINGS: An intracranial bleed is not seen Ventricles are normal caliber No extra-axial fluid collection noted No significant hypodensity within the brain No fluid within the visualized sinuses or mastoids noted. IMPRESSION: No acute intracranial abnormality noted. If the patient continues to have symptoms to suggest an acute intracranial abnormality then MRI of the brain would be recommended. . ED course: EXAMINATION: CT MAXILLOFACIAL WITHOUT CONTRAST CLINICAL INDICATION: Facial injury with facial pain TECHNIQUE: Axial images were obtained through the facial bones and orbits without intravenous contrast. Sagittal and coronal reconstructions were created from the data. One or more of the following dose reduction techniques were used: Automated exposure control, adjustment of the mA and/or kV according to patient size, and/or iterative reconstruction. Unless otherwise specified, incidental findings do not require dedicated imaging follow-up. COMPARISON: No prior exam. FINDINGS: No fracture seen. No TMJ dislocation. Fluid within the sinuses not noted. Globes are normal size and density. Nasal septum is deviated towards the right. IMPRESSION: No fracture is visualized . 10/21 21:38 Order name: Basic Metabolic Panel; Complete Time: 00:06 10/21 21:38 Order name: CBC with Diff; Complete Time: 00:06 4 10/21 21:38 Order name: LFT's; Complete Time: 00:06 10/21 21:39 Order name: TSH; Complete Time: 00:4 10/21 21:39 Order name: T4 Free; Complete Time: 00:06 sp4 10/21 22:00 Order name: Test, Serum; Complete Time: 00:06 sp4 10/21 22:00 Order name: Urine Drug Screen; Complete Time: 00:06 sp4 10/21 22:00 Order name: Alcohol Level; Complete Time: 00:06 sp4 10/21 22:00 Order name: Lactate w/ 2H reflex if indic.; Complete Time: 00:06 sp4 10/21 22:47 Order name: Lactic Dehydrogenase; Complete Time: 00:06 EDMS 10/21 22:47 Order name: Creatine Phosphokinase; Complete Time: 00:06 EDMS 10/21 21:39 Order name: CT Head Brain wo Cont; Complete Time: 00:06 sp4 10/21 21:39 Order name: CT Facial Bones W/O Con; Complete Time: 00:06 sp4 10/21 21:38 Order name: Cardiac monitoring; Complete Time: 22:57 sp4 10/21 21:38 Order name: EKG - Nurse/Tech; Complete Time: 23:11 sp4 10/21 21:38 Order name: IV Saline Lock; Complete Time: 22:46 sp4 10/21 21:38 Order name: Labs collected and sent; Complete Time: 22:46 sp4 10/21 21:38 Order name: O2 Per Protocol; Complete Time: 22:46 sp4 10/21 21:38 Order name: O2 Sat Monitoring; Complete Time: 22:46 sp4 EC/04 22:56 Rate is 71 beats/min. Rhythm is regular, Normal Sinus Rhythm. QRS [place] is Normal. OR sp4 interval is normal. QRS interval is normal. QT interval is normal. No Q waves. T waves are Normal. No ST changes noted. Clinical impression: Normal ECG. Interpreted by me. Reviewed by me. Administered Medications: 23:09 Drug: Ativan IVP 2 mg IVP once Route: IVP; Site: right antecubital; jb4 23:24 Follow up: Response: No adverse reaction dd2 23:09 Drug: NS 0.9% IV 1000 ml IV at 1000 ml once; to be given as a bolus over 60 minutes jb4 Route: IV; Rate: 1000 ml; Site: right antecubital; 10/22 00:09 Follow up: IV Status: Completed infusion; IV Intake: 1000ml dd2 Disposition Summary: 10/22/24 00:23 Discharge Ordered Notes: Location: Home sp4 Problem: new sp4 Symptoms: have improved sp4 Condition: Stable sp4 Diagnosis - Acute Methamphetamine Intoxication, Syncope and collapse , acute facial contusion, sp4 acute left forehead abrasion Followup: sp4 - With: Private Physician - When: 7 - 10 days - Reason: Recheck today's complaints Discharge Instructions: - Discharge Summary Sheet sp4 - Syncope, [id number] sp4 Forms: - Patient Portal Instructions sp4 Prescriptions: - phenobarbital 60 mg Oral tablet - take 1 tablet ORAL route once daily daily for seizures; 30 tablet; Refills: 0, sp4 Product Selection Permitted Signatures: Dispatcher [employer] Martín Saha, CHRISS RN jb4 Moreno Sanchez MD MD sp4 NARGIS SANTIAGO RN RN dd2 Corrections: (The following items were deleted from the chart) 10/21 21:39 21:39 BASIC METABOLIC PANEL+C.LAB.BRZ ordered. EDMS EDMS 21:39 21:39 CBC+H.LAB.BRZ ordered. EDMS EDMS 21:39 21:39 HEPATIC FUNCTION+C.LAB.BRZ ordered. EDMS EDMS 21:39 21:39 THYROID STIMULAT HORMONE+C.LAB.BRZ ordered. EDMS EDMS 21:39 21:39 T4 FREE+C.LAB.BRZ ordered. EDMS EDMS 21:39 21:39 Head Brain Wo Cont+CT.RAD.BRZ ordered. EDMS EDMS 22:01 22:01 TEST, SERUM+SC.LAB.BRZ ordered. EDMS EDMS 22:01 22:01 URINE DRUG SCREEN+UC.LAB.BRZ ordered. EDMS EDMS 22:01 22:01 ETHANOL+C.LAB.BRZ ordered. EDMS EDMS 22:01 22:01 LACTATE+C.LAB.BRZ ordered. EDMS EDMS 22:44 22:01 CREATINE PHOSPHOKINASE+C.LAB.BRZ ordered. EDMS EDMS 22:44 22:01 LACTIC DEHYDROGENASE+C.LAB.BRZ ordered. EDMS EDMS
[2024-10-22 01:09] VITALS: TEMP 98.4
[2024-10-22 01:12] VITALS: BP 139/93; O2SAT 100
--- NOTE | 2024-10-22 11:03 | EKG ---
Test Date: 2024-10-21 Test Time: 22:56:33 Assistant County Attorney: ANNA MEASUREMENT RESULTS: Intervals: Rate: 71 TX: 140 QRSD: 90 QT: 404 QTc: 439 Peck: P: 19 TX: 140 QRS: 87 T: 38 INTERPRETIVE STATEMENTS: Normal sinus rhythm Normal ECG Compared to ECG 11/20/2011 00:40:29 Sinus bradycardia no longer present Sinus arrhythmia no longer present Electronically Signed On 10-22-24 11:01:54 RECRUITMENT ASSISTANT by Clark Akhtar
== END 2024-10-22 01:05 | disposition home or self-care (01) ==
LOC: ER 21:35
DX: T43.651A Poisoning by methamphetamines accidental (unintentional), initial encounter (principal); R55 Syncope and collapse; S00.81XA Abrasion of other part of head, initial encounter; S00.83XA Contusion of other part of head, initial encounter; W18.30XA Fall on same level, unspecified, initial encounter; Y92.009 Unspecified place in unspecified non-institutional (private) residence as the place of occurrence of the external cause
CPT/HCPCS: 93005; 85025; 80048; 36415; 82550; 84703; 83615; 80076; 83605; 84443; 84439; 80307; 70450; 70486; 76377; 82077; J7030

== ENCOUNTER 2024-11-09 00:32 | Emergency (ER) | payer OTHER ==
--- NOTE | 2024-11-09 00:57 | EDPHYS ---
Physician Documentation [facility] Name: Meenakshi Ojeda Age: 34 yrs Sex: Female : 1990 Arrival Date: 11/09/2024 Time: 00:32 Bed IW1 Private MD: ED Physician Moreno Sanchez HPI: 11/09 00:44 This 34 yrs old Female presents to ER via Unassigned with complaints of PT sp4 HAS AN ISSUE WITH IV SITE. 00:58 34-year-old female presents with complaint of discomfort at the right AC at the site of sp4 prior IV. Patient was here on 10/22/2024 and was evaluated for acute fall and syncopal episode. Patient states since then she had pain discomfort at the right AC at the place where IV was located. . Historical: - Allergies: 00:56 PENICILLINS; br2 - PMHx: 00:56 Anxiety; Asthma; Seizures; br2 - PSHx: 00:56 hernia; br2 - Immunization history:: Adult Immunizations up to date. - Infectious Disease History:: Denies. - Social history:: Smoking status: Patient reports the use of cigarette tobacco products, Patient/guardian denies using tobacco, Patient uses Patient/guardian denies using alcohol. - Family history:: not pertinent. ROS: 00:58 Constitutional: Negative for fever, chills, and weight loss, positive right AC pain and sp4 discomfort. Positive anxiety 00:58 All other systems are negative, Exam: 00:58 Constitutional: This is a well developed, well nourished patient who is awake, alert, sp4 and in no acute distress. Head/Face: Normocephalic, atraumatic. Eyes: Pupils equal round and reactive to light, extra-ocular motions intact. Lids and lashes normal. Conjunctiva and sclera are not injected. Cornea within normal limits. Periorbital areas with no swelling, redness, or edema. ENT: Nares patent. No nasal discharge, no septal abnormalities noted. Tympanic membranes are normal and external auditory canals are clear. Oropharynx with no redness, swelling, or masses, exudates, or evidence of obstruction, uvula midline. Mucous membranes moist. Neck: Trachea midline, no thyromegaly or masses palpated, and no cervical lymphadenopathy. Supple, full range of motion without nuchal rigidity, or vertebral point tenderness. Chest/axilla: Normal chest wall appearance and motion. Nontender with no deformity. No lesions are appreciated. Cardiovascular: Regular rate and rhythm with a normal S1 and S2. No gallops, murmurs, or rubs. Normal PMI, no JVD. No pulse deficits. Respiratory: Lungs have equal breath sounds bilaterally, clear to auscultation and percussion. No rales, rhonchi or wheezes noted. No increased work of breathing, no retractions or nasal flaring. Abdomen/GI: Soft, with normal bowel sounds. No distension or tympany. No guarding or rebound. No evidence of tenderness throughout. Back: No spinal tenderness. No costovertebral tenderness. Skin: Warm, dry with normal turgor. Normal color with no rashes, no lesions, and no evidence of cellulitis. MS/ Extremity: Pulses equal, no cyanosis. Neurovascular intact. Full, normal range of motion. Neuro: Awake and alert, GCS 15, oriented to person, place, time, and situation. Cranial nerves II-XII grossly intact. Motor strength 5/5 in all extremities. Sensory grossly intact. Psych: Awake, alert, with orientation to person, place , anxious appearing female Vital Signs: 00:55 BP 123 / 82; Pulse 98; Resp 18; Temp 97.2(TE); Pulse Ox 100% ; Weight 88.9 kg; Height 5 br2 ft. 4 in. ; Pain 0/10; 00:55 Body Mass Index 33.64 (88.90 kg, 162.56 cm) br2 00:55 Pain Scale: Adult br2 Renae Coma Score: 00:58 Eye Response: spontaneous(4). Motor Response: obeys commands(6). Verbal Response: sp4 oriented(5). Total: 15. MDM: 00:38 Medical Screening Exam initiated kb 01:00 Differential Diagnosis altered mental status, sepsis, flu, Acute anxiety. Data sp4 reviewed: vital signs, nurses notes, old medical records. ED course: Patient was evaluated in triage and found in stable condition. Patient has no sign of acute medical emergency. Patient was evaluated here on 10/22/2024.. 01:01 ED course: On 10/22/2024 patient had basically unremarkable evaluation including normal sp4 EKG, normal CT head, normal thyroid panel, normal labs otherwise, and also she tested positive for methamphetamine. We feel that today methamphetamine is likely source of anxiety. Patient was advised to get a good night sleep and practice healthy lifestyle. Stable for discharge from the emergency room.. Administered Medications: No medications were administered Disposition Summary: 11/09/24 00:56 Discharge Ordered Notes: Location: Home sp4 Problem: new sp4 Symptoms: have improved sp4 Condition: Stable sp4 Diagnosis - Anxiety disorder, unspecified sp4 - Acute Anxiety Attack sp4 Followup: sp4 - With: Private Physician - When: 7 - 10 days - Reason: Recheck today's complaints Discharge Instructions: - Discharge Summary Sheet sp4 - Managing Anxiety, Adult sp4 Forms: - Patient Portal Instructions sp4 Signatures: Yudi Phillips, PILO BERG-Moreno Coleman MD MD sp4 Jenni Colby RN RN br2
--- NOTE | 2024-11-09 00:57 | ER ---
Nurse's Notes [facility] Name: Meenakshi Ojeda Age: 34 yrs Sex: Female : 1990 Arrival Date: 11/09/2024 Time: 00:32 Bed IW1 Private MD: Diagnosis: Anxiety disorder, unspecified;Acute Anxiety Attack Presentation: 11/09 00:54 Chief complaint:. me1 00:55 Chief complaint: Patient states: PT HAD AN IV AT THE BEGINNING OF THE MONTH IN THE br2 RIGHT AC AND IS CONCERNED. Coronavirus screen: Client denies travel out of the [place] in the last 14 days. Ebola Screen: Patient denies exposure to infectious person. Initial Sepsis Screen: Does the patient meet any 2 criteria? No. Patient's initial sepsis screen is negative. Does the patient have a suspected source of infection? No. Patient's initial sepsis screen is negative. Risk Assessment: Do you want to hurt yourself or someone else? Patient reports no desire to harm self or others. 00:55 Method Of Arrival: Ambulatory br2 00:55 Acuity: LUIS 3 br2 Triage Assessment: 00:56 General: Appears in no apparent distress. comfortable, Behavior is calm, cooperative. br2 Pain: Complains of pain in right antecubital area. Historical: - Allergies: 00:56 PENICILLINS; br2 - PMHx: 00:56 Anxiety; Asthma; Seizures; br2 - PSHx: 00:56 hernia; br2 - Immunization history:: Adult Immunizations up to date. - Infectious Disease History:: Denies. - Social history:: Smoking status: Patient reports the use of cigarette tobacco products, Patient/guardian denies using tobacco, Patient uses Patient/guardian denies using alcohol. - Family history:: not pertinent. Screenin:58 [facility] ED Fall Risk Assessment (Adult) History of falling in the last 3 months, br2 including since admission No falls in past 3 months (0 pts) Confusion or Disorientation No (0 pts) Intoxicated or Sedated No (0 pts) Impaired Gait No (0 pts) Mobility Assist Device Used No (0 pt) Altered Elimination No (0 pt) Score/Fall Risk Level 0 - 2 = Low Risk Oriented to surroundings. Abuse screen: Denies threats or abuse. Denies injuries from another. Nutritional screening: No deficits noted. Tuberculosis screening: No symptoms or risk factors identified. Assessment: 00:54 Reassessment: SEE TRIAGE ASSESSMENT. br2 Vital Signs: 00:55 BP 123 / 82; Pulse 98; Resp 18; Temp 97.2(TE); Pulse Ox 100% ; Weight 88.9 kg; Height 5 br2 ft. 4 in. ; Pain 0/10; 00:55 Body Mass Index 33.64 (88.90 kg, 162.56 cm) br2 00:55 Pain Scale: Adult br2 [place] Coma Score: 00:58 Eye Response: spontaneous(4). Motor Response: obeys commands(6). Verbal Response: sp4 oriented(5). Total: 15. ED Course: 00:33 Patient arrived in ED. jj6 00:38 [facility]-C [facility] teetee 00:38 Moreno Sanchez MD is Attending Physician. kb 00:44 Moreno Sanchez MD is Attending Physician. sp4 00:53 Elizabeth Grewal, RN is Primary Nurse. me1 00:56 Triage completed. br2 00:58 Patient has correct armband on for positive identification. Provided Education on: br2 PPLAN OF CRE. 00:58 No provider procedures requiring assistance completed. Patient did not have IV access br2 during this emergency room visit. Administered Medications: No medications were administered Medication: 00:54 VIS not applicable for this client. br2 Outcome: 00:56 Discharge ordered by . sp4 00:58 Discharged to home ambulatory, br2 00:58 Condition: good 00:58 Discharge instructions given to patient, Instructed on discharge instructions, follow up and referral plans. Demonstrated understanding of instructions, 01:01 Patient left the ED. br2 Signatures: Yudi Phillips FNP-C FNP-Ckb Jeffries, Jennifer jj6 Moreno Sanchez MD MD sp4 Elizabeth Grewal, RN RN me1 Jenni Colby RN RN br2
[2024-11-09 01:24] VITALS: BP 123/82; TEMP 97.2; O2SAT 100
== END 2024-11-09 01:01 | disposition home or self-care (01) ==
LOC: ER 00:32
DX: F41.0 Panic disorder [episodic paroxysmal anxiety] (principal)
CPT/HCPCS: 99282